=== PATIENT | male | born 1930 | race Caucasian/White ===

== ENCOUNTER 2017-03-06 09:30 | Inpatient (IN) | payer MEDICARE, OTHER ==
--- NOTE | 2017-02-28 21:05 | HP ---
HISTORY AND PHYSICAL: DATE OF ADMISSION/SURGERY: 03/06/17 DATE OF OFFICE VISIT: 02/28/17 SURGEON: Dr. Solange Steele. PROCEDURE: Right total knee arthroplasty. CHIEF COMPLAINT: Right knee pain. HISTORY OF PRESENT ILLNESS: Mr. Cole is an 86-year-old gentleman with complaints of right knee pain secondary to advanced osteoarthritis. He has failed conservative management and has elected to proceed with the right total knee arthroplasty, which is scheduled for 03/06/[address] Steele. PAST MEDICAL HISTORY: Hypothyroidism, hypertension, and melanoma. PAST SURGICAL HISTORY: Appendectomy, melanoma excision, hernia repair, cataract removal, quad tendon repair. CURRENT MEDICATIONS: 1. PreserVision AREDS. 2. Hydrochlorothiazide. 3. L-thyroxine. ALLERGIES: None. FAMILY HISTORY: Cancer and heart disease. SOCIAL HISTORY: He is an 86-year-old gentleman, who lives with his . He is a former smoker. He does not use drugs. He uses occasional alcohol. REVIEW OF SYSTEMS: A complete 14-point review of systems was reviewed with the patient and was positive for hypothyroidism. PHYSICAL EXAMINATION GENERAL: He is well-developed, well-nourished. He is in no acute distress. VITAL SIGNS: He stands 5 feet 9 inches tall and weighs 164 pounds. His blood pressure is 156/75, his heart rate is 68. HEENT: Normocephalic, atraumatic. NECK: Supple. No palpable lymph nodes. Trachea is midline PULMONARY: The lungs are clear to auscultation bilaterally. No wheezes, rhonchi, or rales. CARDIO: Regular rate and rhythm. Strong S1, S2. No murmurs, gallops, or rubs. ABDOMEN: Soft, nontender, nondistended. MUSCULOSKELETAL: Right lower extremity, the skin is intact. There is a moderate joint effusion, tenderness over the medial and lateral joint line. He has full range of motion. He has intact sensation. 2+ dorsalis pedis pulses and his lower extremity muscle group strengths are intact at 5/5. NEUROLOGIC: He is alert and oriented x3. Cranial nerves II through XII are intact. ASSESSMENT AND PLAN: Mr. Cole is an 86-year-old gentleman with complaints of right knee pain secondary to advanced osteoarthritis. He has failed conservative management and has elected to proceed with the right total knee arthroplasty, which is scheduled for 03/06/[address] Steele discussed the risks and the benefits of the surgery at today's visit and all of his questions were answered. Coumadin, Colace, and Percocet were sent to his pharmacy today for postoperative pain control and DVT prophylaxis. He will see Dr. Steele back 10 to 14 days after the surgery. [place] [id number]/[facility] #: [id number] MTDD
[~2017-03-06 09:30] MED LIST: Buffered Lidocaine 1% SYRIN* 3 ML/SYR SYRINGE INTRADERM ONE; Dexamethasone IV* 4 MG/ML 1 ML (4 MG) IV SLOW PU ONE; Famotidine IV* 10 MG/ML 2 ML (20 mg) IV ONE
[2017-03-06] MEDS ORDERED: Famotidine IV* 10 MG/ML 2 ML (20 mg) ONE (09:49)
[2017-03-06] MEDS ORDERED: ceFAZolin 2 GM PREMIX(*) 2 GM/50 ML BAG IVPB ONE (09:49)
[2017-03-06] MEDS ORDERED: Dexamethasone IV* 4 MG/ML 1 ML (4 MG) ONE (09:49)
[2017-03-06] MEDS ORDERED: Morphine PF AMP (0.5MG/ML)* 5 MG/10 ML AMP ONE (10:47)
[2017-03-06] MEDS ORDERED: HYDROmorphone* 1 MG/ML 1 ML SYR ONE ×4 (10:47→15:58)
[2017-03-06] MEDS ORDERED: Midazolam* 1 MG/ML 5 ML VIAL (5 MG) ONE (10:47)
[2017-03-06] MEDS ORDERED: fentaNYL* 50 MCG/ML 2 ML VIAL (100 MCG VIAL) ONE ×3 (10:47→13:25)
[2017-03-06] MEDS ORDERED: PROCHLORPERAZINE INJ 5 MG/ML 2 ML VIAL IV PRN ×2 (15:40→15:41)
[2017-03-06] MEDS ORDERED: DiMENhydriNATE IV* 50 MG/ML VIAL IV PUSH PRN ×2 (15:40→15:41)
[2017-03-06] MEDS ORDERED: fentaNYL* 50 MCG/ML 2 ML VIAL (100 MCG VIAL) IV PRN (15:40)
[2017-03-06] MEDS ORDERED: Ondansetron INJ* 2 MG/ML VIAL IV PRN ×2 (15:40→15:41)
[2017-03-06] MEDS ORDERED: diPHENhydraMINE IV* 50 MG/ML 1 ml VIAL (BENADRYL) IV PRN (15:41)
[2017-03-06] MEDS ORDERED: Nalbuphine* 20 MG/ML 1 ML VIAL IV PRN (15:41)
[2017-03-06] MEDS ORDERED: Naloxone* 0.4 MG/ML 1 ML VIAL IV PRN (15:41)
[2017-03-06] MEDS ORDERED: oxyCODONE/Acetamin 5/325 MG* TAB PO PRN (15:41)
[2017-03-06] MEDS ORDERED: Acetaminophen TAB* 325 MG PO PRN (15:42)
[2017-03-06] MEDS ORDERED: Bisacodyl SUPP* 10 MG SUPP PR PRN (15:42)
[2017-03-06] MEDS ORDERED: Polyethylene Glycol 3350* 17 GM PACKET PO PRN (15:42)
[2017-03-06] MEDS ORDERED: LACTULOSE* 30 ML UDC PO PRN (15:42)
[2017-03-06] MEDS ORDERED: Glycopyrrolate IV* 0.2 MG/ML 1 ML VIAL ONE (15:58)
--- NOTE | 2017-03-06 16:55 | RAD ---
INDICATION: Status post right total knee arthroplasty. COMPARISON: Preoperative x-ray dated January 17, 2017 TECHNIQUE: 2 view radiograph of the right knee. FINDINGS: There is been interval placement of an anatomically aligned right knee prosthesis. There is no evidence of periprostatic fracture. Remaining visualized bones are intact. Incidental note is made of calcified atherosclerosis of the visualized superficial femoral and popliteal arteries. IMPRESSION: Anatomic alignment of right knee prosthesis.
--- NOTE | 2017-03-06 18:17 | CONSULT ---
Subjective Date of Service: 03/06/17 Interval History: No c/o. Pt states he has a heart rate monitor at home which he uses about every day. It reads about 55 consistently, and goes up to the 60's when he exercises. He denies chest pain, SOB, cough, dizzy spells. He last passed out about 30 yrs ago. Review of Systems - Measurements Intake and Output: Intake and Output Last 24 Hours 03/04/17 03/05/17 03/06/17 03/07/17 06:59 06:59 06:59 06:59 Intake Total 2049 Output Total 400 Balance 1650 Weight 168 lb 6.4 oz Intake: IV Fluids 2049 LR 2000 NS 50ML, Cefazolin 2G 50 Output: Urine 200 Estimated Blood Loss 200 Objective Active Medications: Acetaminophen (Tylenol Tab*) 650 mg PO Q4H PRN PRN Reason: PAIN OR TEMPERATURE Bisacodyl (Dulcolax Supp*) 10 mg [place] DAILY PRN PRN Reason: constipation Dexamethasone Sodium Phosphate (Decadron Iv*) 8 mg IV SLOW PU ONCE ONE Stop: 03/06/17 06:01 Last Admin: 03/06/17 10:52 Dose: 8 mg Dimenhydrinate (Dramamine Iv*) 12.5 mg IV PUSH ONCE PRN PRN Reason: NAUSEA/VOMITING Stop: 03/06/17 15:41 Dimenhydrinate (Dramamine Iv*) 12.5 mg IV PUSH Q6H PRN PRN Reason: Nausea/Vomiting Diphenhydramine HCl (Benadryl Iv*) 12.5 mg IV Q6H PRN PRN Reason: PRURITIS Diphenhydramine HCl (Benadryl Iv*) 12.5 mg IV Q6H PRN PRN Reason: PRURITIS Docusate Sodium (Colace Cap*) 100 mg PO BID [facility] Enoxaparin Sodium (Lovenox(*)) 30 mg SUBCUT Q24H [facility] Famotidine (Pepcid Iv*) 20 mg IV ONCE ONE Stop: 03/06/17 06:01 Last Admin: 03/06/17 10:52 Dose: 20 mg Fentanyl Citrate (Fentanyl*) 25 mcg IV Q2M PRN PRN Reason: PAIN - MODERATE Stop: 03/06/17 15:49 Hydrochlorothiazide (Hydrodiuril Tab*) 25 mg PO QAM [facility] Lactated Ringer's (Lactated Ringers 1000 Ml Bag*) 1,000 mls @ 125 mls/hr IV PER RATE [facility] Cefazolin Sodium/Dextrose (Kefzol 1 Gm In Dextrose Duplex (*)) 1 gm in 50 mls @ 200 mls/hr IVPB Q8H [facility] Stop: 03/07/17 08:14 Lactated Ringer's (Lactated Ringers 1000 Ml Bag*) 1,000 mls @ 100 mls/hr IV PER RATE [facility] Lactulose (Lactulose*) 30 ml PO Q6H PRN PRN Reason: constipation Levothyroxine Sodium (Synthroid Tab*) 112 mcg PO SEE INSTRUCTIONS [facility] Lidocaine/Sodium Bicarbonate (Buffered Lidocaine 1% Syrin*) 0.2 ml INTRADERM ONCE ONE Stop: 03/06/17 06:01 Last Admin: 03/06/17 10:51 Dose: Not Given Magnesium Hydroxide (Milk Of Magnesia Liq*) 30 ml PO Q6H PRN PRN Reason: constipation Morphine Sulfate (Morphine Inj (Syringe)*) 2 mg IV Q2H PRN PRN Reason: PAIN Nalbuphine HCl (Nubain*) 5 mg IV Q6H PRN PRN Reason: pruritis Naloxone HCl (Narcan*) 0.08 mg IV Q2M PRN PRN Reason: respiratory depression Ondansetron HCl (Zofran Inj*) 4 mg IV ONCE PRN PRN Reason: NAUSEA/VOMITING Stop: 03/06/17 15:41 Ondansetron HCl (Zofran Inj*) 4 mg IV Q6H PRN PRN Reason: Nausea/Vomiting Ondansetron HCl (Zofran Tab*) 4 mg PO Q6H PRN PRN Reason: NAUSEA Oxycodone HCl (Roxycodone Tab*) 10 mg PO Q4H PRN PRN Reason: SEVERE PAIN Oxycodone/Acetaminophen (Percocet 5/325 Tab*) 2 tab PO Q4H PRN PRN Reason: Moderate Pain Oxycodone/Acetaminophen (Percocet 5/325 Tab*) 1 tab PO Q3H PRN PRN Reason: PAIN - MODERATE Oxycodone/Acetaminophen (Percocet 5/325 Tab*) 2 tab PO Q4H PRN PRN Reason: PAIN Polyethylene Glycol/Electrolytes (Miralax*) 17 gm PO DAILY PRN PRN Reason: Constipation Prochlorperazine Edisylate (Compazine Inj*) 2.5 mg IV ONCE PRN PRN Reason: NAUSEA/VOMITING Stop: 03/06/17 15:41 Prochlorperazine Edisylate (Compazine Inj*) 2.5 mg IV Q6H PRN PRN Reason: NAUSEA/VOMITING Warfarin Sodium (Coumadin Tab(*)) 6 mg PO ONCE@1700 ONE PRN Reason: Protocol Stop: 03/06/17 17:01 Vital Signs 03/06/17 03/06/17 03/06/17 10:18 15:35 15:40 Temperature 97.5 F 97.2 F Pulse Rate 51 50 49 Respiratory 18 14 16 Rate Blood Pressure 146/71 88/54 99/55 (mmHg) O2 Sat by Pulse 98 100 100 Oximetry 03/06/17 03/06/17 03/06/17 15:45 15:50 16:00 Temperature Pulse Rate 43 41 48 Respiratory 14 12 17 Rate Blood Pressure 110/60 101/56 108/57 (mmHg) O2 Sat by Pulse 98 95 94 Oximetry 03/06/17 03/06/17 03/06/17 16:15 16:30 16:45 Temperature Pulse Rate 36 39 38 Respiratory 12 12 14 Rate Blood Pressure 111/61 104/58 106/63 (mmHg) O2 Sat by Pulse 97 99 98 Oximetry 03/06/17 03/06/17 03/06/17 17:00 17:15 17:30 Temperature Pulse Rate 38 40 39 Respiratory 13 14 16 Rate Blood Pressure 106/53 103/57 117/58 (mmHg) O2 Sat by Pulse 99 100 98 Oximetry 03/06/17 03/06/17 17:45 18:00 Temperature 97.3 F Pulse Rate 40 33 Respiratory 14 14 Rate Blood Pressure 112/62 116/53 (mmHg) O2 Sat by Pulse 100 100 Oximetry Assessment/Plan - Billing Plan By Medical Problem: 1. 2. VTE PPX: Diet: Code Status: Admission Status and Rationale:
--- NOTE | 2017-03-06 18:23 | CONSULT ---
Subjective Date of Service: 03/06/17 Interval History: See HPI in first note. Family History: Findings - Parents of "old age." One younger sister A&W. Social History: Findings - Lives with his who is his SDM. Smoked a pipe only. 3 alcoholic drinks per day. Past Medical History: Findings - Melanoma R shoulder area. Repair L quad tear. Appy age 7. Review of Systems - Measurements Intake and Output: Intake and Output Last 24 Hours 03/04/17 03/05/17 03/06/17 03/07/17 06:59 06:59 06:59 06:59 Intake Total 2049 Output Total 400 Balance 1650 Weight 168 lb 6.4 oz Intake: IV Fluids 2049 LR 1999 NS 50ML, Cefazolin 2G 50 Output: Urine 200 Estimated Blood Loss 200 - Review of Systems Dermatology: Positive: Normal HEENT: Positive: Normal Eyes: Positive: Normal Thyroid: Positive: Primary Hypothyroidism Pulmonary: Positive: Normal Cardiology: Positive: Normal Gastroenterology: Positive: Normal Genital - Urinary: Positive: Normal Endocrinology: Positive: Thyroid Problems Hematologic/Lymphatic: Negative: Anemia, Easy Brusing, Hx Leukemia, Hx Lymphoma, Use of Anticoagulant, Use of Antiplatelet Drugs, Other Neurology: Positive: Normal Psychiatry: Positive: Normal Allergic/Immunologic: Negative: Hx Anaphylaxis, Hx Angioedema, Hx Environmental, Hx Seasonal, Athsma, Hx HIV, Immunocompromise, Swollen Glands LymphNodes, Other Objective Active Medications: Acetaminophen (Tylenol Tab*) 650 mg PO Q4H PRN PRN Reason: PAIN OR TEMPERATURE Bisacodyl (Dulcolax Supp*) 10 mg [place] DAILY PRN PRN Reason: constipation Dexamethasone Sodium Phosphate (Decadron Iv*) 8 mg IV SLOW PU ONCE ONE Stop: 03/06/17 06:01 Last Admin: 03/06/17 10:52 Dose: 8 mg Dimenhydrinate (Dramamine Iv*) 12.5 mg IV PUSH ONCE PRN PRN Reason: NAUSEA/VOMITING Stop: 03/06/17 15:41 Dimenhydrinate (Dramamine Iv*) 12.5 mg IV PUSH Q6H PRN PRN Reason: Nausea/Vomiting Diphenhydramine HCl (Benadryl Iv*) 12.5 mg IV Q6H PRN PRN Reason: PRURITIS Diphenhydramine HCl (Benadryl Iv*) 12.5 mg IV Q6H PRN PRN Reason: PRURITIS Docusate Sodium (Colace Cap*) 100 mg PO BID [place] Enoxaparin Sodium (Lovenox(*)) 30 mg SUBCUT Q24H [facility] Famotidine (Pepcid Iv*) 20 mg IV ONCE ONE Stop: 03/06/17 06:01 Last Admin: 03/06/17 10:52 Dose: 20 mg Fentanyl Citrate (Fentanyl*) 25 mcg IV Q2M PRN PRN Reason: PAIN - MODERATE Stop: 03/06/17 15:49 Hydrochlorothiazide (Hydrodiuril Tab*) 25 mg PO QAM [facility] Lactated Ringer's (Lactated Ringers 1000 Ml Bag*) 1,000 mls @ 125 mls/hr IV PER RATE [facility] Cefazolin Sodium/Dextrose (Kefzol 1 Gm In Dextrose Duplex (*)) 1 gm in 50 mls @ 200 mls/hr IVPB Q8H [facility] Stop: 03/07/17 08:14 Lactated Ringer's (Lactated Ringers 1000 Ml Bag*) 1,000 mls @ 100 mls/hr IV PER RATE [facility] Lactulose (Lactulose*) 30 ml PO Q6H PRN PRN Reason: constipation Levothyroxine Sodium (Synthroid Tab*) 112 mcg PO SEE INSTRUCTIONS [facility] Lidocaine/Sodium Bicarbonate (Buffered Lidocaine 1% Syrin*) 0.2 ml INTRADERM ONCE ONE Stop: 03/06/17 06:01 Last Admin: 03/06/17 10:51 Dose: Not Given Magnesium Hydroxide (Milk Of Magnesia Liq*) 30 ml PO Q6H PRN PRN Reason: constipation Morphine Sulfate (Morphine Inj (Syringe)*) 2 mg IV Q2H PRN PRN Reason: PAIN Nalbuphine HCl (Nubain*) 5 mg IV Q6H PRN PRN Reason: pruritis Naloxone HCl (Narcan*) 0.08 mg IV Q2M PRN PRN Reason: respiratory depression Ondansetron HCl (Zofran Inj*) 4 mg IV ONCE PRN PRN Reason: NAUSEA/VOMITING Stop: 03/06/17 15:41 Ondansetron HCl (Zofran Inj*) 4 mg IV Q6H PRN PRN Reason: Nausea/Vomiting Ondansetron HCl (Zofran Tab*) 4 mg PO Q6H PRN PRN Reason: NAUSEA Oxycodone HCl (Roxycodone Tab*) 10 mg PO Q4H PRN PRN Reason: SEVERE PAIN Oxycodone/Acetaminophen (Percocet 5/325 Tab*) 2 tab PO Q4H PRN PRN Reason: Moderate Pain Oxycodone/Acetaminophen (Percocet 5/325 Tab*) 1 tab PO Q3H PRN PRN Reason: PAIN - MODERATE Oxycodone/Acetaminophen (Percocet 5/325 Tab*) 2 tab PO Q4H PRN PRN Reason: PAIN Polyethylene Glycol/Electrolytes (Miralax*) 17 gm PO DAILY PRN PRN Reason: Constipation Prochlorperazine Edisylate (Compazine Inj*) 2.5 mg IV ONCE PRN PRN Reason: NAUSEA/VOMITING Stop: 03/06/17 15:41 Prochlorperazine Edisylate (Compazine Inj*) 2.5 mg IV Q6H PRN PRN Reason: NAUSEA/VOMITING Warfarin Sodium (Coumadin Tab(*)) 6 mg PO ONCE@1700 ONE PRN Reason: Protocol Stop: 03/06/17 17:01 Vital Signs 03/06/17 03/06/17 03/06/17 10:18 15:35 15:40 Temperature 97.5 F 97.2 F Pulse Rate 51 50 49 Respiratory 18 14 16 Rate Blood Pressure 146/71 88/54 99/55 (mmHg) O2 Sat by Pulse 98 100 100 Oximetry 03/06/17 03/06/17 03/06/17 15:45 15:50 16:00 Temperature Pulse Rate 43 41 48 Respiratory 14 12 17 Rate Blood Pressure 110/60 101/56 108/57 (mmHg) O2 Sat by Pulse 98 95 94 Oximetry 03/06/17 03/06/17 03/06/17 16:15 16:30 16:45 Temperature Pulse Rate 36 39 38 Respiratory 12 12 14 Rate Blood Pressure 111/61 104/58 106/63 (mmHg) O2 Sat by Pulse 97 99 98 Oximetry 03/06/17 03/06/17 03/06/17 17:00 17:15 17:30 Temperature Pulse Rate 38 40 39 Respiratory 13 14 16 Rate Blood Pressure 106/53 103/57 117/58 (mmHg) O2 Sat by Pulse 99 100 98 Oximetry 03/06/17 03/06/17 17:45 18:00 Temperature 97.3 F Pulse Rate 40 33 Respiratory 14 14 Rate Blood Pressure 112/62 116/53 (mmHg) O2 Sat by Pulse 100 100 Oximetry Oxygen Devices in Use Now: Nasal Cannula Appearance: Supine on PACU stretcher. Alert, in good spirits. Looks comfortable. Eyes: No Scleral Icterus Ears/Nose/Mouth/Throat: Clear Oropharnyx, Mucous Membranes Moist Neck: NL Appearance and Movements; NL JVP, No Thyroid Enlargement, Masses Respiratory: Symmetrical Chest Expansion and Respiratory Effort, Clear to Auscultation, Clear to Percussion Cardiovascular: NL Sounds; No Murmurs; No JVD, RRR, No Edema, - Abdominal: NL Sounds; No Tenderness; No Distention, No Hepatosplenomegaly, - Extremities: No Edema, No Clubbing, Cyanosis, - Skin: No Rash or Ulcers, No Nodules or Sclerosis, - Neurological: Alert and Oriented x 3, - - Both legs paralyzed and numb. Assessment/Plan - Billing Plan By Medical Problem: 1. Bradycardia. Baseline is 50-55. Likely affected by long-acting epidural morphine and other OR drugs. Monitor in ICU. First degree AV block on ECG. 2. Hypothyroid. Low TSH in past, will also get FT4 and FT3.
[2017-03-06] MEDS ORDERED: Warfarin TAB(*) 6 MG PO ONE (21:30)
[2017-03-06] MEDS: Docusate CAP* 100 MG PO SCH (21:39)
[2017-03-06] MEDS: ceFAZolin 1 GM in Dextrose (*) 1 GM/50 ML BAG IVPB SCH (21:41)
[2017-03-06 21:55] LABS: TSH (Thyroid Stimulating Horm) 0.11 mcIU/mL (0.34-5.60)
[2017-03-06 21:59] LABS: Free T3 2.5 pg/mL (2.5-3.9)
[2017-03-06 22:01] LABS: Free T4 1.32 ng/dL (0.61-1.12)
[2017-03-07] MEDS ORDERED: Morphine INJ* 2 MG/ML 1 ML SYRINGE IV PRN (04:55)
[2017-03-07] MEDS ORDERED: oxyCODONE TAB* 5 MG TAB PO PRN (04:55)
[2017-03-07] MEDS ORDERED: diPHENhydraMINE IV* 50 MG/ML 1 ml VIAL (BENADRYL) IV PRN (04:55)
[2017-03-07] MEDS ORDERED: Ondansetron TAB* 4 MG PO PRN (04:55)
[2017-03-07] MEDS: ceFAZolin 1 GM in Dextrose (*) 1 GM/50 ML BAG IVPB SCH ×2 (05:20→13:39)
[2017-03-07] MEDS: Hydrochlorothiazide TAB* 25 MG PO SCH (05:26)
[2017-03-07 05:55] LABS: Hematocrit 35 % (42-52); Hemoglobin 11.7 g/dl (14.0-18.0)
[2017-03-07] MEDS ORDERED: Levothyroxine TAB* 112 MCG TAB PO SCH ×2 (06:00→11:16)
[2017-03-07 06:12] LABS: BUN/Creatinine Ratio 26.7 (8-20); Calcium 8.2 mg/dL (8.6-10.3); EGFR African American 85.9 (>60); EGFR Non-African American 66.8 (>60); Potassium 3.8 mmol/L (3.5-5.0)
--- NOTE | 2017-03-07 07:50 | PN ---
Progress Note - Progress Note SOAP: Subjective: [Pt. is alert, reports pain is controlled. Denies chest pain, sob, palpitations. Objective: RLE - dressing c/d/i. distally min edema. +df/pf, full sens lt, 2+ dp pulse. Vital Signs: Temp Pulse Resp BP Pulse Ox 97.9 F 49 14 150/74 83 03/07/17 04:41 03/07/17 01:00 03/07/17 06:03 03/07/17 06:03 03/07/17 06:03 Laboratory Results - last 24 hr 03/06/17 03/07/17 03/07/17 21:00 05:45 05:45 Hgb 11.7 L Hct 35 L INR (Anticoag Therapy) 0.98 Sodium Potassium Chloride Carbon Dioxide Anion Gap BUN Creatinine Est GFR ( Amer) Est GFR (Non-Af Amer) BUN/Creatinine Ratio Glucose Calcium TSH 0.11 L Free T4 1.32 H Free T3 2.50 03/07/17 05:45 Hgb Hct INR (Anticoag Therapy) Sodium 133 Potassium 3.8 Chloride 98 L Carbon Dioxide 30 Anion Gap 5 BUN 28 H Creatinine 1.05 Est GFR ( Amer) 85.9 Est GFR (Non-Af Amer) 66.8 BUN/Creatinine Ratio 26.7 H Glucose 119 H Calcium 8.2 L TSH Free T4 Free T3 Assessment: 86 yo M pod 1 s/p RTKA Plan: ICU monitoring for bradycardia, heart block on ekg appreciate icu/hospital medicine care wbat with pt today coumadin 6 mg tonight with lovenox bridge
[2017-03-07] MEDS: Docusate CAP* 100 MG PO SCH ×2 (09:21→22:17)
--- NOTE | 2017-03-07 11:33 | PN ---
Subjective Date of Service: 03/07/17 Interval History: Pain control OK, feels it is time for his next dose. No new c/o. Family History: Findings - Parents of "old age." One younger sister A&W. Social History: Findings - Lives with his who is his SDM. Smoked a pipe only. 3 alcoholic drinks per day. Past Medical History: Findings - Melanoma R shoulder area. Repair L quad tear. Appy age 7. Objective Active Medications: Acetaminophen (Tylenol Tab*) 650 mg PO Q4H PRN PRN Reason: PAIN OR TEMPERATURE Bisacodyl (Dulcolax Supp*) 10 mg [place] DAILY PRN PRN Reason: constipation Diphenhydramine HCl (Benadryl Iv*) 12.5 mg IV Q6H PRN PRN Reason: PRURITIS Docusate Sodium (Colace Cap*) 100 mg PO BID [facility] Last Admin: 03/07/17 09:21 Dose: 100 mg Enoxaparin Sodium (Lovenox(*)) 30 mg SUBCUT Q24H [facility] Hydrochlorothiazide (Hydrodiuril Tab*) 25 mg PO DAILY@0600 [facility] Last Admin: 03/07/17 05:26 Dose: 25 mg Cefazolin Sodium/Dextrose (Kefzol 1 Gm In Dextrose Duplex (*)) 1 gm in 50 mls @ 200 mls/hr IVPB Q8H [facility] Stop: 03/07/17 13:44 Last Admin: 03/07/17 05:20 Dose: 200 mls/hr Lactated Ringer's (Lactated Ringers 1000 Ml Bag*) 1,000 mls @ 100 mls/hr IV PER RATE [facility] Last Admin: 03/06/17 21:08 Dose: 100 mls/hr Lactulose (Lactulose*) 30 ml PO Q6H PRN PRN Reason: constipation Levothyroxine Sodium (Synthroid Tab*) 100 mcg PO EVERY OTHER DAY@0600 [facility] Magnesium Hydroxide (Milk Of Magnesia Liq*) 30 ml PO Q6H PRN PRN Reason: constipation Morphine Sulfate (Morphine Inj (Syringe)*) 2 mg IV Q2H PRN PRN Reason: PAIN Ondansetron HCl (Zofran Tab*) 4 mg PO Q6H PRN PRN Reason: NAUSEA Oxycodone HCl (Roxycodone Tab*) 10 mg PO Q4H PRN PRN Reason: SEVERE PAIN Oxycodone/Acetaminophen (Percocet 5/325 Tab*) 1 tab PO Q3H PRN PRN Reason: PAIN - MODERATE Oxycodone/Acetaminophen (Percocet 5/325 Tab*) 2 tab PO Q4H PRN PRN Reason: PAIN Pharmacy Profile Note (Coumadin Daily Reminder*) 1 note FOLLOW UP 1700 [facility] Polyethylene Glycol/Electrolytes (Miralax*) 17 gm PO DAILY PRN PRN Reason: Constipation Warfarin Sodium (Coumadin Tab(*)) 6 mg PO ONCE@1700 ONE PRN Reason: Protocol Stop: 03/07/17 17:01 Vital Signs 03/06/17 03/06/17 03/06/17 15:35 15:40 15:45 Temperature 97.2 F Pulse Rate 50 49 43 Respiratory 14 16 14 Rate Blood Pressure 88/54 99/55 110/60 (mmHg) O2 Sat by Pulse 100 100 98 Oximetry 03/06/17 03/06/17 03/06/17 15:50 16:00 16:15 Temperature Pulse Rate 41 48 36 Respiratory 12 17 12 Rate Blood Pressure 101/56 108/57 111/61 (mmHg) O2 Sat by Pulse 95 94 97 Oximetry 03/06/17 03/06/17 03/06/17 16:30 16:45 17:00 Temperature Pulse Rate 39 38 38 Respiratory 12 14 13 Rate Blood Pressure 104/58 106/63 106/53 (mmHg) O2 Sat by Pulse 99 98 99 Oximetry 03/06/17 03/06/17 03/06/17 17:15 17:30 17:45 Temperature Pulse Rate 40 39 40 Respiratory 14 16 14 Rate Blood Pressure 103/57 117/58 112/62 (mmHg) O2 Sat by Pulse 100 98 100 Oximetry 03/06/17 03/06/17 03/06/17 18:00 18:15 18:30 Temperature 97.3 F Pulse Rate 33 39 36 Respiratory 14 14 14 Rate Blood Pressure 116/53 119/57 121/60 (mmHg) O2 Sat by Pulse 100 100 99 Oximetry 03/06/17 03/06/17 03/06/17 18:45 19:00 19:30 Temperature 97.3 F Pulse Rate 37 35 40 Respiratory 14 14 16 Rate Blood Pressure 125/59 123/63 144/64 (mmHg) O2 Sat by Pulse 99 100 100 Oximetry 03/06/17 03/06/17 03/06/17 19:45 20:26 20:27 Temperature 96.1 F Pulse Rate 43 42 Respiratory 14 13 6 Rate Blood Pressure 148/59 114/50 108/42 (mmHg) O2 Sat by Pulse 100 98 98 Oximetry 03/06/17 03/06/17 03/06/17 20:30 20:45 21:00 Temperature Pulse Rate 41 Respiratory 11 10 10 Rate Blood Pressure 108/42 116/49 (mmHg) O2 Sat by Pulse 98 99 100 Oximetry 03/06/17 03/06/17 03/06/17 22:00 23:00 23:10 Temperature Pulse Rate Respiratory 15 15 14 Rate Blood Pressure 150/68 168/82 (mmHg) O2 Sat by Pulse 100 100 100 Oximetry 03/06/17 03/07/17 03/07/17 23:19 00:00 00:01 Temperature 97.8 F Pulse Rate Respiratory 15 14 13 Rate Blood Pressure 139/116 146/69 (mmHg) O2 Sat by Pulse 100 99 98 Oximetry 03/07/17 03/07/17 03/07/17 00:25 01:00 02:00 Temperature Pulse Rate 49 Respiratory 12 8 9 Rate Blood Pressure 109/35 126/44 (mmHg) O2 Sat by Pulse 97 98 Oximetry 03/07/17 03/07/17 03/07/17 03:00 04:00 04:41 Temperature 97.9 F Pulse Rate Respiratory 6 8 Rate Blood Pressure 115/63 147/64 (mmHg) O2 Sat by Pulse 99 100 Oximetry 03/07/17 03/07/17 03/07/17 05:00 05:54 05:56 Temperature Pulse Rate Respiratory 10 14 12 Rate Blood Pressure 130/56 129/81 (mmHg) O2 Sat by Pulse 100 Oximetry 03/07/17 03/07/17 03/07/17 06:00 06:03 07:00 Temperature Pulse Rate 44 Respiratory 15 14 11 Rate Blood Pressure 146/126 150/74 156/64 (mmHg) O2 Sat by Pulse 83 100 Oximetry 03/07/17 03/07/17 03/07/17 08:00 09:00 10:00 Temperature 97.2 F Pulse Rate 53 51 51 Respiratory 13 18 16 Rate Blood Pressure 139/65 143/70 167/66 (mmHg) O2 Sat by Pulse 100 98 100 Oximetry 03/07/17 03/07/17 10:55 11:00 Temperature Pulse Rate 51 Respiratory 9 Rate Blood Pressure 142/62 (mmHg) O2 Sat by Pulse 100 100 Oximetry Oxygen Devices in Use Now: Nasal Cannula Appearance: Alert, head up in recliner chair with both legs elevated. Cooling device on R knee. In good spirits. Looks comfortable. Eyes: No Scleral Icterus Neck: NL Appearance and Movements; NL JVP, No Thyroid Enlargement, Masses Respiratory: Symmetrical Chest Expansion and Respiratory Effort, Clear to Auscultation, Clear to Percussion Cardiovascular: NL Sounds; No Murmurs; No JVD, RRR, No Edema, - Extremities: No Edema, No Clubbing, Cyanosis, - Skin: No Rash or Ulcers, No Nodules or Sclerosis, - Neurological: Alert and Oriented x 3, NL Sensation - Can lift each leg off the chair. Result Diagrams: 03/07/17 05:45 03/07/17 05:45 Microbiology and Other Data: Microbiology 03/06/17 21:20 Nasal Screen MRSA (PCR)([facility]) - Final Nasal Mrsa Negative Assess/Plan/Problems-Billing Plan By Medical Problem: 1. Bradycardia. Baseline is 50-55. Likely affected by long-acting epidural morphine and other OR drugs. Monitor in ICU. First degree AV block on ECG. 2. Hypothyroid. Low TSH in past, will also get FT4 and FT3. - Patient Problems (1) Bradycardia Current Visit: Yes Status: Acute Code(s): R00.1 - BRADYCARDIA, UNSPECIFIED SNOMED Code(s): 46471561 Comment: Resolved. Back to his usual rate in the 50's. Bradycardia in PACU likely related to epidural and other meds given in OR. (2) Hypothyroid Current Visit: Yes Status: Acute Code(s): E03.9 - HYPOTHYROIDISM, UNSPECIFIED SNOMED Code(s): 50097389 Comment: TSH low, fT4 high. Reduce levothyroxine to 100 mcg. Pt will call Dr. Rodrigues to discuss outpt tx.
--- NOTE | 2017-03-07 11:34 | PN ---
Progress Note - Progress Note Note: The hospitalist service will be happy to see this patient again at your request.
[2017-03-07] MEDS: oxyCODONE/Acetamin 5/325 MG* TAB PO PRN ×2 (11:37→17:10)
[2017-03-07] MEDS: Enoxaparin(*) 30 MG/0.3 ML SYR SUBCUT SCH (13:39)
[2017-03-07] MEDS ORDERED: Warfarin TAB(*) 6 MG PO ONE (17:00)
--- NOTE | 2017-03-07 23:21 | OP ---
DATE OF OPERATION: 03/06/17 - ROOM #349 DATE OF : [birth year] ATTENDING SURGEON: Solange Steele MD ASSISTANTS: SANTOS Mccormick ANESTHESIOLOGIST: Dr. Swain. ANESTHESIA: Spinal with adductor nerve block. 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 OPERATIVE PROCEDURE: Right total knee arthroplasty. TOURNIQUET TIME: 61 minutes. COMPLICATIONS: None. EBL: 250 cc. SPECIMEN: Bone and cartilage from the right knee joint sent to Pathology. HARDWARE USED: This was cemented [employer] total knee hardware. For the femur, a size 7 right posterior stabilized implant. For the tibia, a size 6 right tibial base plate. For the patella, a 38 mm three-peg all poly patella. For the insert, an 11 mm posterior stabilized polyethylene articular insert. BRIEF HISTORY/INDICATION: Mr. Cole is an 86-year-old gentleman with years of uncontrolled severe right knee pain. The patient failed conservative treatment with anti-inflammatories, pain medication, intra-articular injection, physical therapy, and ambulatory assistive devices. His radiographs confirmed [id number] arthritis. Due to the continued pain and decreased quality of life , the patient elected to proceed with right total knee arthroplasty. Informed consent was obtained from the patient. He understood the risks of the procedure included, but were not limited to bleeding, infection, damage to nearby structures, continued pain, need for further surgery, intraoperative fracture, nerve palsy, hardware failure, loosening, knee stiffness, loss of motion, stroke, heart attack, blood clot, and . He wished to proceed. INTRAOPERATIVE FINDINGS: Intraoperatively, the patient was noted to have 15 degrees flexion deformity to begin. At the end of surgery, he had full extension, 125 degrees of flexion at the knee. He had extensive osteophyte formation and loss of cartilage in a tricompartmental fashion. DESCRIPTION OF PROCEDURE: Mr. Cole was identified in the pre-anesthesia unit. His right lower extremity was marked as the correct operative side. Informed consent was signed and placed in the chart. The patient was taken to the operating room and placed under spinal anesthesia with an adductor nerve block. Ballard catheter was placed. Tourniquet was placed on the right thigh. Right lower extremity was prepped and draped in the usual sterile fashion. It was noted that he had 15 degrees flexion contracture. Preop time-out was made to correctly identify the patient's side and site. Appropriate perioperative antibiotics were given within 1 hour of incision. A 12-cm midline incision was made with #10 blade and carried down to the extensor mechanism. A new #10 blade was used to make a standard medial parapatellar arthrotomy. Patella was subluxed laterally. Electrocautery was used to subperiosteally elevate soft tissue off the superomedial tibia to the midsagittal plane. Any osteophytes along the proximal tibia were carefully removed. The knee was flexed up. Anterior horn of the lateral meniscus and ACL was released. A drill was used to enter the distal femur. Intramedullary distal femoral cutting guide was pinned into proper position. This was placed in an 11 mm due to the flexion contracture. Oscillating saw was used to make appropriate distal small cut. Next, the external rotation guide was pinned on the distal femur. The distal femur was sized to a size 7. Size 7 multi- cutting jig was pinned on to the distal femur. An oscillating saw was used to make the appropriate 4 chamfer cuts. Any excess bone was carefully removed. The PCL was completely released and the tibia was subluxed anteriorly. Extramedullary tibial cutting guide was pinned on the proximal tibia. Oscillating saw was used to make a proximal tibial cut perpendicular to the mechanical axis of the tibia. The bone was carefully removed. The knee was brought out into full extension. A spacer block fit nicely. There was good medial and lateral ligamentous balancing. Good flexion and extension gap balancing. The knee was flexed up. Lamina information engineer was placed both medially and laterally. Any remaining meniscus was carefully removed with electrocautery. A curved osteotome was used to remove posterior osteophytes. A tibial tray and drop kaden were placed to once again confirm satisfactory tibial cut. The tibial cut was appropriate. A size 7 right trial femur was impacted on to the distal femur. This had excellent fit. The box for the posterior stabilized implants was prepared using a reamer and box cut osteotome. Trial size 6 tibial tray and 9 mm insert were placed. The knee was taken through a range of motion and noted to have full extension to 125 degrees of flexion. The patella was everted. 9 mm of patellar bone and cartilage was carefully removed with an oscillating saw. The patella was sized to a size 38. Three peg holes were drilled through the size 38 guide. A 38 trial patella was placed and the knee was taken through a range of motion. There was satisfactory patellofemoral tracking. All trials were carefully removed at this point. The tibia was subluxed anteriorly and sized to a size 6. Proximal tibia was prepared using a size 6 keel punch. All bony cut surfaces were copiously irrigated with sterile saline and dried. Final implants were cemented in place starting with the tibia followed by the femur and last the patella. An 11 mm insert trial was placed while the knee was brought out into full extension. The cement was allowed to fully cure. Tourniquet was turned out at 61 minutes. The knee was copiously irrigated with sterile saline. Once the cement was fully cured, the insert trial was removed. Any excess cement around the implants was removed. Electrocautery was used to obtain meticulous hemostasis. Final insert chosen was an 11 mm posterior stabilized articular insert. This was locked into the position on the tibial tray. Stability of the insert was checked and rechecked and noted to be stable. The knee was once again copiously irrigated with sterile saline. The extensor mechanism was closed using interrupted #1 Vicryls. The rest of the incision was closed in a layered fashion using 0 and 2-0 Vicryls. The skin was closed using running 3-0 nylon sutures. Xeroform, 4x4's, and Webril were used to cover the incision. Saul wrap and cold pack were placed over this. The patient's anesthesia was reversed without difficulty. He was taken to the PACU in stable condition. Intended weight-bearing will be weightbearing as tolerated. Intended DVT prophylaxis will be Coumadin with a Lovenox bridge. [id number]/[facility] #: [id number] [facility]ITALAisha
[2017-03-08] MEDS: oxyCODONE/Acetamin 5/325 MG* TAB PO PRN ×4 (04:28→22:00)
[2017-03-08] MEDS: Hydrochlorothiazide TAB* 25 MG PO SCH (05:52)
[2017-03-08 06:10] LABS: Hematocrit 33 % (42-52); Hemoglobin 10.8 g/dl (14.0-18.0); Mean Corpuscular HGB Conc 33 g/dl (31-36); Mean Corpuscular Hemoglobin 32 pg (27-31); Mean Corpuscular Volume 96 fL (80-94); Mean Platelet Volume 8 um3 (7.4-10.4); Red Blood Count 3.37 10^6/ul (4.0-5.4); Red Cell Distribution Width 14 % (10.5-15); White Blood Count 10.9 10^3/ul (3.5-10.8)
[2017-03-08 06:31] LABS: EGFR African American 95.3 (>60); EGFR Non-African American 74.1 (>60)
[2017-03-08] MEDS: Magnesium Hydroxide LIQ* 30 ML UDC PO PRN (09:13)
[2017-03-08] MEDS: Docusate CAP* 100 MG PO SCH ×2 (09:13→22:00)
--- NOTE | 2017-03-08 11:45 | PN ---
Progress Note - Progress Note SOAP: Subjective: Pt. is alert, reports severe pain overnight. Objective: RLE - dressing changed, inc c/i with min ss drainage. distally nvi. Vital Signs: Temp Pulse Resp BP Pulse Ox 98.0 F 75 18 141/71 96 03/08/17 08:22 03/08/17 10:29 03/08/17 09:14 03/08/17 10:29 03/08/17 08:22 Laboratory Results - last 24 hr 03/08/17 03/08/17 03/08/17 05:57 05:57 05:57 WBC 10.9 H RBC 3.37 L Hgb 10.8 L Hct 33 L MCV 96 H MCH 32 H MCHC 33 RDW 14 Plt Count 146 L MPV 8 Neut % (Auto) 83.6 H Lymph % (Auto) 5.5 L Vilas % (Auto) 10.5 H Eos % (Auto) 0 Baso % (Auto) 0.4 Absolute Neuts (auto) 9.1 H Absolute Lymphs (auto) 0.6 L Absolute Monos (auto) 1.1 H Absolute Eos (auto) 0 Absolute Basos (auto) 0 Absolute Nucleated RBC 0.01 Nucleated RBC % 0.1 INR (Anticoag Therapy) 1.41 H BUN 26 H Creatinine 0.96 Est GFR ( Amer) 95.3 Est GFR (Non-Af Amer) 74.1 Assessment: 86 yo M pod 2 s/p RTKA Plan: wbat rle pt/ot pain control prn HR improved, appreciate medicine consult plan d/c to [facility] tomorrow am
[2017-03-08] MEDS: Enoxaparin(*) 30 MG/0.3 ML SYR SUBCUT SCH (13:06)
[2017-03-08] MEDS ORDERED: Warfarin TAB(*) 6 MG PO ONE (17:00)
[2017-03-09] MEDS: Hydrochlorothiazide TAB* 25 MG PO SCH (06:24)
[2017-03-09] MEDS: oxyCODONE/Acetamin 5/325 MG* TAB PO PRN ×2 (06:33→13:03)
[2017-03-09 07:48] LABS: Hematocrit 33 % (42-52); Hemoglobin 10.8 g/dl (14.0-18.0); Mean Corpuscular HGB Conc 33 g/dl (31-36); Mean Corpuscular Hemoglobin 33 pg (27-31); Mean Corpuscular Volume 97 fL (80-94); Mean Platelet Volume 9 um3 (7.4-10.4); Red Blood Count 3.34 10^6/ul (4.0-5.4); Red Cell Distribution Width 14 % (10.5-15); White Blood Count 8.9 10^3/ul (3.5-10.8)
[2017-03-09] MEDS: Docusate CAP* 100 MG PO SCH (08:47)
[2017-03-09] MEDS: Magnesium Hydroxide LIQ* 30 ML UDC PO PRN (08:47)
[2017-03-09 09:14] VITALS: BP 120/77
--- NOTE | 2017-03-09 13:00 | PN ---
Progress Note - Progress Note SOAP: Subjective: 86 year old male s/p R TKA on 03/[address] Steele. Patient overall feeling well, pain controlled with PO pain medication. + BM, H&H stable. Elevated BP overnight. Objective: General- Well appearing, NAD MSK- Dressing removed, Incision C/D/I. mild edema around knee, + ecchymosis around incision. PT 2+ b/l, ] Vital Signs Temp 99.2 F 03/09/17 08:21 Pulse 57 03/09/17 08:21 Resp 18 03/09/17 08:50 BP 120/77 03/09/17 08:21 Pulse Ox 98 03/09/17 08:50 Intake & Output 03/08/17 03/09/17 03/09/17 18:59 06:59 18:59 Intake Total 710 1000 240 Output Total 750 225 Balance -40 775 240 Intake: Oral 710 1000 240 Output: Urine 750 225 Other: Estimated Void Medium Medium Estimated Stool Amount Medium # Voids 1 Laboratory Results - last 24 hr 03/09/17 03/09/17 07:32 07:32 WBC 8.9 RBC 3.34 L Hgb 10.8 L Hct 33 L MCV 97 H MCH 33 H MCHC 33 RDW 14 Plt Count 145 L MPV 9 Neut % (Auto) 82.6 Lymph % (Auto) 5.6 L Cooper % (Auto) 10.5 H Eos % (Auto) 0.2 Baso % (Auto) 1.1 Absolute Neuts (auto) 7.4 Absolute Lymphs (auto) 0.5 L Absolute Monos (auto) 0.9 H Absolute Eos (auto) 0 Absolute Basos (auto) 0.1 Absolute Nucleated RBC 0 Nucleated RBC % 0 INR (Anticoag Therapy) 1.89 H Assessment: 86 year old male s/p R TKA on 03/[address] Steele Plan: - D/C when cleared by hospitalist re: HTN - COumadin dosing 6mg tonight, lovenox today - PT/ OT as shown Active Medications Generic Name Dose Route Start Last Admin Trade Name Freq PRN Reason Stop Dose Admin Acetaminophen 650 mg 03/06/17 15:42 Tylenol Tab* PO Q4H PRN PAIN OR TEMPERATURE Bisacodyl 10 mg 03/06/17 15:42 Dulcolax Supp* FL DAILY PRN constipation Diphenhydramine HCl 12.5 mg 03/07/17 04:55 Benadryl Iv* IV Q6H PRN PRURITIS Docusate Sodium 100 mg 03/06/17 21:00 03/09/17 08:47 Colace Cap* PO 100 mg BID BERKLEY Administration Enoxaparin Sodium 30 mg 03/07/17 13:00 03/08/17 13:06 Lovenox(*) SUBCUT 30 mg Q24H BERKLEY Administration Hydrochlorothiazide 25 mg 03/07/17 06:00 03/09/17 06:24 Hydrodiuril Tab* PO 25 mg DAILY@0600 BERKLEY Administration Lactulose 30 ml 03/06/17 15:42 03/08/17 15:19 Lactulose* PO 30 ml Q6H PRN Administration constipation Levothyroxine Sodium 100 mcg 03/07/17 11:16 03/09/17 06:24 Synthroid Tab* PO 100 mcg EVERY OTHER DAY@0600 [facility] Administration Magnesium Hydroxide 30 ml 03/06/17 15:42 03/09/17 08:47 Milk Of Magnesia Liq* PO 30 ml Q6H PRN Administration constipation Morphine Sulfate 2 mg 03/07/17 04:55 Morphine Inj (Syringe)* IV Q2H PRN PAIN Ondansetron HCl 4 mg 03/07/17 04:55 03/08/17 08:34 Zofran Tab* PO 4 mg Q6H PRN Administration NAUSEA Oxycodone HCl 10 mg 03/07/17 04:55 03/07/17 22:18 Roxycodone Tab* PO 10 mg Q4H PRN Administration SEVERE PAIN Oxycodone/Acetaminophen 1 tab 03/07/17 04:55 03/08/17 22:00 Percocet 5/325 Tab* PO 1 tab Q3H PRN Administration PAIN - MODERATE Oxycodone/Acetaminophen 2 tab 03/07/17 04:55 03/09/17 06:33 Percocet 5/325 Tab* PO 2 tab Q4H PRN Administration PAIN Pharmacy Profile Note 1 note 03/07/17 17:00 03/08/17 16:44 Coumadin Daily Reminder* FOLLOW UP 1 note 1700 BERKLEY Administration Polyethylene Glycol/Electrolytes 17 gm 03/06/17 15:42 03/08/17 22:04 Miralax* PO 17 gm DAILY PRN Administration Constipation
[2017-03-09] MEDS: Enoxaparin(*) 30 MG/0.3 ML SYR SUBCUT SCH (13:04)
--- NOTE | 2017-03-09 13:07 | PN ---
Progress Note - Progress Note Note: I reviewed the patient's record ov vital signs, and spoke to SANTOS Farias. The patient still has significant knee pain which may affect his BP and this should gradually improve. He is [facility] he will be closely monitored. I would not make any medications changes now. I would suggest he follow-up with Dr. Rodrigues in the next week or so for re-evaluation of his BP control.
== END 2017-03-09 15:10 | DRG 470 ==
LOC: AA 09:46 → ICU 20:30 → SSU 03-07 16:36
PROVIDERS: ADMIT Orthopaedic Surgery Adult Reconstructive Orthopaedic Surgery; ATTEND Orthopaedic Surgery Adult Reconstructive Orthopaedic Surgery
PROC: 0SRC0J9 Replacement of Right Knee Joint with Synthetic Substitute, Cemented, Open Approach (ICD-10-PCS; principal; 2017-03-06 12:15)
DX: M17.11 Unilateral primary osteoarthritis, right knee (principal); R00.1 Bradycardia, unspecified; E05.00 Thyrotoxicosis with diffuse goiter without thyrotoxic crisis or storm; I10 Essential (primary) hypertension; E03.9 Hypothyroidism, unspecified; F17.210 Nicotine dependence, cigarettes, uncomplicated; M25.761 Osteophyte, right knee; I44.0 Atrioventricular block, first degree; Z85.820 Personal history of malignant melanoma of skin; Z98.49 Cataract extraction status, unspecified eye; Z80.9 Family history of malignant neoplasm, unspecified; Z82.49 Family history of ischemic heart disease and other diseases of the circulatory system
CPT/HCPCS: 36415; 62323; 80048; 82565; 84439; 84443; 84481; 84520; 85014; 85018; 85025; 85610; 87641; 93005; 94760; A9270-GY; C1776; J0690; J1100; J1170; J1650; J2250; J3010

== ENCOUNTER 2017-03-21 14:21 | Emergency (ER) | payer MEDICARE, OTHER ==
[2017-03-21 15:07] VITALS: BP 136/54
--- NOTE | 2017-03-21 19:23 | UC ---
giovana Carrington Timothy, scribed for Angely Luciano MD on 03/21/17 at 1619 . Knee Pain HPI - HPI Summary HPI Summary: Major Cole is an 86 yo male presenting to [facility] with 410 pain, increased swelling and redness, and bloody drainage from a right knee replacement 03/06/17 with suture removal 03/19/17, followed immediately with drainage that has not stopped. He has been on levaquin since the surgery. His coumadin Rx was increased to 6 mg on 03/19/17 and then decreased to 4mg today. The bleeding has not decreased without the use of pressure. His pain increases with change in position, and is temporarily alleviated by application of ice. His MHx includes heart murmur, graves disease, PNA, constipation, arthritis of the right knee, hypothyroidism, and tobacco use. - History of Current Complaint Chief Complaint: UCLowerExtremity Stated Complaint: LACERATION ON KNEE Time Seen by Provider: 03/21/17 15:55 Hx Obtained From: Patient Onset/Duration: Sudden Onset, Lasting Days, Still Present Severity Initially: Moderate Severity Currently: Moderate Location Of Injury: right knee replacement Pain Intensity: 4 Pain Scale Used: 0-10 Numeric Character: Sharp Aggravating Factor(s): Movement, Weight Bearing Alleviating Factor(s): Rest, Position Associated Signs And Symptoms: Positive: Swelling, Redness Able to Bear Weight: Yes - Risk Factors Septic Arthritis Risk Factor: Extremes of Age, Prosthesis - Allergies/Home Medications Allergies/Adverse Reactions: Allergies Allergy/AdvReac Type Severity Reaction Status Date / Time No Known Allergies Allergy Verified 02/28/17 11:11 PMH/Surg Hx/FS Hx/Imm Hx Endocrine History Of: Reports: Thyroid Disease, Hypothyroidism Denies: Diabetes Cardiovascular History Of: Denies: Cardiac Disorders, Hypertension, Pacemaker/ICD Respiratory History Of: Denies: COPD, Asthma GI/ History Of: Denies: Ulcer, Renal Disease - Surgical History Surgical History: Yes Surgery Procedure, Year, and Place: hernia repair/right knee replacement. appendectomy. left quad repair. lt ankle surgery. rt shoulder melanoma and lymph nodes removed - Family History Known Family History: Positive: Cardiac Disease Negative: Diabetes - Social History Lives: Assisted Living Alcohol Use: Daily Alcohol Amount: 3 PER DAY Substance Use Type: None Smoking Status (MU): Former Smoker Amount Used/How Often: PIPE X 60 YEARS Have You Smoked in the Last Year: No When Did the Patient Quit Smoking/Using Tobacco: 10years ago - Immunization History Most Recent Influenza Vaccination: 2016 Most Recent Tetanus Shot: 2-3 yrs ago Most Recent Pneumonia Vaccination: HAS HAD Review of Systems Constitutional: Negative Skin: Negative Eyes: Negative ENT: Negative Respiratory: Negative Cardiovascular: Negative Gastrointestinal: Negative Genitourinary: Negative Motor: Negative Neurovascular: Negative Musculoskeletal: Other: - left knee replacement with swelling, redness, and drainage Neurological: Negative Psychological: Negative All Other Systems Reviewed And Are Negative: Yes Physical Exam Triage Information Reviewed: Yes Appearance: No Pain Distress, Well-Nourished, Ill-Appearing Vital Signs: Initial Vital Signs Temp 99.8 F 03/21/17 14:57 Pulse 51 03/21/17 14:57 Resp 16 03/21/17 14:57 BP 136/54 03/21/17 14:57 Pulse Ox 99 03/21/17 14:57 Vital Signs Reviewed: Yes Eyes: Positive: Conjunctiva Clear ENT: Positive: Hearing grossly normal. Negative: Muffled/hoarse voice Neck: Positive: Supple, Nontender Respiratory: Positive: Lungs clear, Normal breath sounds, No respiratory distress Cardiovascular: Positive: RRR, No Murmur, Pulses Normal, Brisk Capillary Refill Musculoskeletal: Positive: Strength Intact, ROM Intact Neurological: Positive: Alert, Muscle Tone Normal Psychological Exam: Normal Psychological: Positive: Age Appropriate Behavior Skin: Positive: Other - Swollen erythematous right knee. Erythema extends down the anterior tibia. There is a spot in the suture line oozing serosanguinous fluid at a rapid rate. There are no limits on ROM. The knee is nontender. Knee Pain Course/Dx - Course Course Of Treatment: Major Szymanski is an 86 yo male presenting to [facility] with increased swelling, drainage, and redness of his right knee replacement since 10/12 when the surgery was performed. Drainage begain 03/19/17 when the sutures were removed. A wound culture will be sent to the lab for testing. After clinical examination he will be transferred to [facility] for further evaluation and treatment. - Differential Dx/Diagnosis Differential Diagnosis/HQI/PQRI: Cellulitis, Infection, Other - septic prosthetic knee Provider Diagnoses: purulent drainage and bleeding from prosthetic knee - Physician Notifications Discussed Patient Care With: 6017 - Rox (nurse - orthopedics) - Dr. Steele is in surgery, but recommends the Pt be transferred to [facility] for further evaluation and treatment. 1620 - Dr. Chambers ([facility]) - will accept Pt for evaluation and treatment at [facility]. Instructed by Provider To: MD Will See In ED Discharge - Discharge Plan Condition: Stable Disposition: TRANS HIGHER LVL OF CARE FAC Referrals: Dago Rodriguez MD [Medical Doctor] - 2 Days Danny Rodrigues MD [Primary Care Provider] - 2 Days The documentation as recorded by the giovana almanza Timothy accurately reflects the service I personally performed and the decisions made by , Angely Luciano MD.
== END 2017-03-21 16:30 | disposition short-term general hospital (02) ==
LOC: UCEAST 14:21
DX: L76.22 Postprocedural hemorrhage of skin and subcutaneous tissue following other procedure (principal); Z96.651 Presence of right artificial knee joint; E03.9 Hypothyroidism, unspecified; Z87.891 Personal history of nicotine dependence
CPT/HCPCS: 87070; 87205; 87640; 87641; 99203; G0463

== ENCOUNTER 2017-03-21 17:15 | Inpatient (IN) | payer MEDICARE, OTHER ==
[2017-03-21 18:19] LABS: Hematocrit 32 % (42-52); Hemoglobin 10.8 g/dl (14.0-18.0); Mean Corpuscular HGB Conc 33 g/dl (31-36); Mean Corpuscular Hemoglobin 32 pg (27-31); Mean Corpuscular Volume 96 fL (80-94); Mean Platelet Volume 8 um3 (7.4-10.4); Red Blood Count 3.37 10^6/ul (4.0-5.4); Red Cell Distribution Width 13 % (10.5-15)
[2017-03-21 18:37] LABS: Albumin 3.3 g/dL (3.2-5.2); BUN/Creatinine Ratio 29.8 (8-20); C Reactive Protein 327.75 mg/L (< 5.00); Calcium 9.8 mg/dL (8.6-10.3); EGFR African American 78.1 (>60); EGFR Non-African American 60.8 (>60); Globulin 3.6 g/dL (2-4); Magnesium 1.8 mg/dL (1.9-2.7); Potassium 4.1 mmol/L (3.5-5.0); Total Bilirubin 0.5 mg/dL (0.2-1.0); Total Protein 6.9 g/dL (6.4-8.9)
[2017-03-21 18:40] LABS: Urine Bacteria Absent (Absent); Urine Bilirubin Negative (Negative); Urine Glucose Negative (Negative); Urine Nitrite Negative (Negative)
[2017-03-21] MEDS ORDERED: oxyCODONE/Acetamin 5/325 MG* TAB PO ONE (18:56)
--- NOTE | 2017-03-21 19:11 | RAD ---
INDICATION: Preoperative study. COMPARISON: Comparison is made with prior chest x-ray study from February 28, 2017. TECHNIQUE: A portable view of the chest was obtained. FINDINGS: The heart is moderately enlarged and unchanged from the prior exam. Note is made of a tortuous aorta. The lungs are hyperinflated and clear. No pleural effusion is seen. IMPRESSION: 1. NO EVIDENCE FOR ACUTE FINDING. 2. CARDIOMEGALY, UNCHANGED.
[2017-03-21] MEDS ORDERED: Bisacodyl SUPP* 10 MG SUPP PR PRN (19:51)
[2017-03-21] MEDS ORDERED: Magnesium Oxide TAB* 400 MG PO ONE (19:55)
[2017-03-21] MEDS: Docusate CAP* 100 MG PO SCH (21:06)
[2017-03-21] MEDS: Heparin VIAL(*) 5000 UNITS/ML VIAL (FIVE THOUSAND) SUBCUT SCH (21:07)
[2017-03-21] MEDS: NS 0.9% 1000 ML* 1,000 ML IV SCH (21:15)
--- NOTE | 2017-03-21 22:15 | CONS ---
ORTHOPEDIC CONSULTATION NOTE: DATE OF CONSULT: 03/21/17 CHIEF COMPLAINT: Right knee pain/draining wound. HISTORY OF PRESENT ILLNESS: Mr. Cole is an 86-year-old gentleman who had right total knee arthroplasty with ks on 03/06/17. Postoperatively, he did well without any complications. He was seen in the office for a postop visit and noted to have a likely hematoma. He was placed on po Keflex prophylactically for possible cellulitis. Two days ago, he noticed some drainage from the superior portion of his wound. Today on 03/21/17, he noted copious amounts of serosanguineous drainage from the superior part of his wound. He denies fevers, but has had chills. The patient went to [facility] care from [facility] and was sent to the emergency room at [facility]. I was notified and came down to the ED to see the patient. He reports 6/10 moderate pain in the knee. Denies fevers. Denies chest pain or shortness of breath. PAST MEDICAL HISTORY: 1. Hypothyroidism. 2. Hypertension. 3. Melanoma. 4. Osteoarthritis. PAST SURGICAL HISTORY: 1. Appendectomy. 2. Melanoma excision. 3. Hernia repair. 4. Cataract removal. 5. Quad tendon repair. CURRENT MEDICATIONS: Per his discharge summary were: 1. Colace 100 mg p.o. b.i.d. 2. Hydrochlorothiazide 25 mg p.o. q.a.m. 3. Percocet 5/325 one to two tablets p.o. q.4 hours p.r.n. for pain. 4. Levothyroxine 112 mcg p.o. daily. 5. Metamucil 2 caps p.o. daily. 6. Coumadin as instructed. ALLERGIES: No known drug allergies. FAMILY HISTORY: Cancer, heart disease. SOCIAL HISTORY: The patient lives with his at [facility]. Former smoker. No current, tobacco, alcohol, or recreational drug use. Normally an independent ambulator. Uses a cane. Has been using a rolling walker after the total knee arthroplasty. REVIEW OF SYSTEMS: Fourteen systems reviewed with the patient. Positive for right knee pain, swelling, right knee wound drainage. Positive for some chills. Positive for fatigue. Negative for fever, chest pain, shortness of breath, nausea, vomiting, headache, or dizziness. Otherwise, the patient reports review of systems is negative or not relevant. PHYSICAL EXAM: Vitals: Temperature 99.8, heart rate 51, blood pressure 136/ 54. General: The patient is a thin male in no apparent distress. Alert and oriented x3. Pleasant mood and appropriate affect. Chest: No unlabored breathing. Right lower extremity: The patient has a large hematoma at the knee with some erythema. He has serosanguineous drainage from the superior portion of the wound. The knee does have some warmth. Distally, he has some 2 + pitting edema. He has dorsiflexion, plantar flexion, 2+ palpable DP pulse. RADIOGRAPHS: Multiple plain films of the right knee are reviewed from the PACS system today on 03/21/17. These show cemented total knee arthroplasty in satisfactory position. ASSESSMENT AND PLAN: Mr. Cole is an 86-year-old gentleman, status post uncomplicated right total knee arthroplasty on 03/06/17. He is now 2 weeks status post right total knee arthroplasty with draining wound and hematoma. It is unclear at this time whether this knee is infected. Under sterile conditions, I did prep the knee and attempt aspiration. Although there is a large amount of swelling and ballotable patella, I was unable to aspirate any fluid after several attempts. This indicates to me that this is a coagulated hematoma. For now, the patient will have some labs drawn including CRP, ESR, and CBC. We will admit him to [facility]. I have contacted the hospitalist group who has graciously agreed to admit the patient. Of course, we need to see what the patient's coags look like before we can plan for an I and D of this knee joint. We will perform hematoma evacuation as well as a washout with polyethylene exchange and multiple cultures can be obtained at that time. If there is indication of infection, we will start IV antibiotics. Leukocytosis will prompt starting antibiotics tonight. Otherwise, we will wait so that I can obtain more sensitive and specific cultures at the time of washout. This plan was discussed with the patient. He understands the treatment plan. He will be admitted to [facility] and monitored. We will check his labs and as soon as he is appropriate to take for an I and D of this right knee, we will take him to surgery. [id number]/[facility] #: [id number] [facility]
--- NOTE | 2017-03-21 22:18 | ED ---
Isaiah Carrington Erika, scribed for Travis Mancera MD on 03/21/17 at 1807 . Lower Extremity - HPI Summary HPI Summary: Patient is an 86-year-old male presenting to the ED with a CC of drainage from the right knee s/p total knee replacement 2 weeks ago. Patient reports he had stitches removed on 03/19/2017, and then noticed serous drainage. Since then, drainage has become serosanguinous. Patient reports some chills, but denies known fever, chest pain, SOB, and abdominal pain. He states he has been taking coumadin for the last 2 days. - History of Current Complaint Chief Complaint: EDExtremityLower Stated Complaint: COMPLICATIONS KNEE SURGERY Time Seen by Provider: 03/21/17 17:56 Hx Obtained From: Patient, Medical Records Severity Currently: Moderate Pain Intensity: 4 Pain Scale Used: 0-10 Numeric Timing: Constant Location: Is Discrete @ - R knee Associated Signs And Symptoms: Positive: Other - drainage - Allergies/Home Medications Allergies/Adverse Reactions: Allergies Allergy/AdvReac Type Severity Reaction Status Date / Time No Known Allergies Allergy Verified 02/28/17 11:11 Home Medications: Home Medications Acetaminophen SUPP* [Tylenol Supp*] 325 mg NV Q6H PRN 03/21/17 [History Confirmed 03/21/17] Acetaminophen TAB* [Tylenol TAB*] 650 mg PO Q6HR PRN 03/21/17 [History Confirmed 03/21/17] Bisacodyl SUPP* [Dulcolax Supp*] 10 mg NV DAILY PRN 03/21/17 [History Confirmed 03/21/17] Levothyroxine TAB* [Synthroid TAB*] 100 mcg PO DAILY 03/21/17 [History Confirmed 03/21/17] Magnesium Hydroxide LIQ* [Milk of Magnesia LIQ*] 30 ml PO QAM PRN 03/21/17 [ History Confirmed 03/21/17] Psyllium W/ Calcium [Metamucil Plus Calcium] 2 cap PO DAILY 03/21/17 [History Confirmed 03/21/17] Warfarin TAB(*) [Coumadin TAB(*)] 6 mg PO DAILY 03/21/17 [History Confirmed ] PMH/Surg Hx/FS Hx/Imm Hx Endocrine/Hematology History: Reports: Hx Thyroid Disease Denies: Hx Diabetes Cardiovascular History: Denies: Hx Hypertension, Hx Pacemaker/ICD Respiratory History: Reports: Other Respiratory Problems/Disorders - PNEUMONIA Denies: Hx Asthma, Hx Chronic Obstructive Pulmonary Disease (COPD) GI History: Reports: Other GI Disorders - CONSTIPATION- CONTROLLED WITH METAMUCIL/ HEMORRHOIDS Denies: Hx Ulcer History: Denies: Hx Dialysis, Hx Renal Disease Musculoskeletal History: Reports: Hx Arthritis - RIGHT KNEE Sensory History: Reports: Hx Cataracts, Hx Contacts or Glasses - GLASSES Denies: Hx Hearing Aid Opthamlomology History: Reports: Hx Cataracts, Hx Contacts or Glasses - GLASSES Neurological History: Reports: Other Neuro Impairments/Disorders - GRAVES DISEASE Psychiatric History: Denies: Hx Panic Disorder - Cancer History Cancer Type, Location and Year: 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 appendectomy. left quad repair. lt ankle surgery. rt shoulder melanoma and lymph nodes removed Hx Anesthesia Reactions: No Infectious Disease History: No Infectious Disease History: Denies: Hx Clostridium Difficile, Hx Hepatitis, Hx Human Immunodeficiency Virus (HIV), Hx of Known/Suspected MRSA, Hx Shingles, Hx Tuberculosis, Hx Known/ Suspected VRE, Hx Known/Suspected VRSA, History Other Infectious Disease, Traveled Outside the [place] in Last 30 Days - Family History Known Family History: Positive: Cardiac Disease, Other - Cancer - Social History Alcohol Use: Occasionally Alcohol Amount: 3 PER DAY Substance Use Type: Reports: None Smoking Status (MU): Former Smoker Amount Used/How Often: PIPE X 60 YEARS Have You Smoked in the Last Year: No Review of Systems Positive: Chills. Negative: Fever Negative: Chest Pain Negative: Shortness Of Breath Negative: Abdominal Pain Skin: Other - R knee drainage All Other Systems Reviewed And Are Negative: Yes Physical Exam Triage Information Reviewed: Yes Vital Signs On Initial Exam: Initial Vitals Temp Pulse Resp BP Pulse Ox 97.9 F 95 16 182/91 98 03/21/17 17:35 03/21/17 17:35 03/21/17 17:35 03/21/17 17:35 03/21/17 17:35 Vital Signs Reviewed: Yes Appearance: Positive: No Pain Distress, Ill-Appearing - Mildly Skin: Positive: Warm, Skin Color Reflects Adequate Perfusion, Dry, Other - Right knee is dressed Head/Face: Positive: Normal Head/Face Inspection Eyes: Positive: EOMI, JR ENT: Positive: Normal ENT inspection Neck: Positive: Supple, Nontender Respiratory/Lung Sounds: Positive: Clear to Auscultation, Breath Sounds Present Cardiovascular: Positive: RRR Abdomen Description: Positive: Nontender, Soft Bowel Sounds: Positive: Present Musculoskeletal: Positive: Other - Right knee is dressed s/p total knee replacement Neurological: Positive: Normal, Sensory/Motor Intact, Alert, Oriented to Person Place, Time Psychiatric: Positive: Affect/Mood Appropriate Diagnostics - Vital Signs Vital Signs Temp Pulse Resp BP Pulse Ox 03/21/17 17:35 97.9 F 95 16 182/91 98 - Laboratory Lab Results: Lab Results 03/21/17 03/21/17 03/21/17 Range/Units 18:08 18:08 18:08 WBC 14.0 H (3.5-10.8) 10^3/ul RBC 3.37 L (4.0-5.4) 10^6/ul Hgb 10.8 L (14.0-18.0) g/dl Hct 32 L (42-52) % MCV 96 H (80-94) fL MCH 32 H (27-31) pg MCHC 33 (31-36) g/dl RDW 13 (10.5-15) % Plt Count 368 (150-450) 10^3/ul MPV 8 (7.4-10.4) um3 Neut % (Auto) 85.4 H (38-83) % Lymph % (Auto) 3.6 L (25-47) % [place] % (Auto) 9.8 H (1-9) % Eos % (Auto) 0.5 (0-6) % Baso % (Auto) 0.7 (0-2) % Absolute Neuts (auto) 12.0 H (1.5-7.7) 10^3/ul Absolute Lymphs (auto) 0.5 L (1.0-4.8) 10^3/ul Absolute Monos (auto) 1.4 H (0-0.8) 10^3/ul Absolute Eos (auto) 0.1 (0-0.6) 10^3/ul Absolute Basos (auto) 0.1 (0-0.2) 10^3/ul Absolute Nucleated RBC 0.01 10^3/ul Nucleated RBC % 0 INR (Anticoag Therapy) 1.62 H (0.89-1.11) APTT 30.2 (26.0-36.3) seconds Sodium 128 L (133-145) mmol/L Potassium 4.1 (3.5-5.0) mmol/L Chloride 88 L (101-111) mmol/L Carbon Dioxide 30 (22-32) mmol/L Anion Gap 10 (2-11) mmol/L BUN 34 H (6-24) mg/dL Creatinine 1.14 (0.67-1.17) mg/dL Est GFR ( Amer) 78.1 (>60) Est GFR (Non-Af Amer) 60.8 (>60) BUN/Creatinine Ratio 29.8 H (8-20) Glucose 104 H (70-100) mg/dL Lactic Acid (0.5-2.0) mmol/L Calcium 9.8 (8.6-10.3) mg/dL Magnesium 1.8 L (1.9-2.7) mg/dL Total Bilirubin 0.50 (0.2-1.0) mg/dL AST 27 (13-39) U/L ALT 20 (7-52) U/L Alkaline Phosphatase 116 H (34-104) U/L C-Reactive Protein 327.75 H (< 5.00) mg/L Total Protein 6.9 (6.4-8.9) g/dL Albumin 3.3 (3.2-5.2) g/dL Globulin 3.6 (2-4) g/dL Albumin/Globulin Ratio 0.9 L (1-3) Urine Color Urine Appearance Urine pH (5-9) Ur Specific [place] (1.010-1.030) Urine Protein (Negative) Urine Ketones (Negative) Urine Blood (Negative) Urine Nitrate (Negative) Urine Bilirubin (Negative) Urine Urobilinogen (Negative) Ur Leukocyte Esterase (Negative) Urine WBC (Auto) (Absent) Urine RBC (Auto) (Absent) Ur Squamous Epith Cells (Absent) Urine Bacteria (Absent) Hyaline Casts (Absent) Urine Glucose (Negative) 03/21/17 03/21/17 Range/Units 18:08 18:19 WBC (3.5-10.8) 10^3/ul RBC (4.0-5.4) 10^6/ul Hgb (14.0-18.0) g/dl Hct (42-52) % MCV (80-94) fL MCH (27-31) pg MCHC (31-36) g/dl RDW (10.5-15) % Plt Count (150-450) 10^3/ul MPV (7.4-10.4) um3 Neut % (Auto) (38-83) % Lymph % (Auto) (25-47) % [place] % (Auto) (1-9) % Eos % (Auto) (0-6) % Baso % (Auto) (0-2) % Absolute Neuts (auto) (1.5-7.7) 10^3/ul Absolute Lymphs (auto) (1.0-4.8) 10^3/ul Absolute Monos (auto) (0-0.8) 10^3/ul Absolute Eos (auto) (0-0.6) 10^3/ul Absolute Basos (auto) (0-0.2) 10^3/ul Absolute Nucleated RBC 10^3/ul Nucleated RBC % INR (Anticoag Therapy) (0.89-1.11) APTT (26.0-36.3) seconds Sodium (133-145) mmol/L Potassium (3.5-5.0) mmol/L Chloride (101-111) mmol/L Carbon Dioxide (22-32) mmol/L Anion Gap (2-11) mmol/L BUN (6-24) mg/dL Creatinine (0.67-1.17) mg/dL Est GFR ( Amer) (>60) Est GFR (Non-Af Amer) (>60) BUN/Creatinine Ratio (8-20) Glucose (70-100) mg/dL Lactic Acid 1.7 (0.5-2.0) mmol/L Calcium (8.6-10.3) mg/dL Magnesium (1.9-2.7) mg/dL Total Bilirubin (0.2-1.0) mg/dL AST (13-39) U/L ALT (7-52) U/L Alkaline Phosphatase (34-104) U/L C-Reactive Protein (< 5.00) mg/L Total Protein (6.4-8.9) g/dL Albumin (3.2-5.2) g/dL Globulin (2-4) g/dL Albumin/Globulin Ratio (1-3) Urine Color Yellow Urine Appearance Clear Urine pH 6.0 (5-9) Ur Specific [place] 1.024 (1.010-1.030) Urine Protein 2+(100 mg/dl) H (Negative) Urine Ketones Negative (Negative) Urine Blood Negative (Negative) Urine Nitrate Negative (Negative) Urine Bilirubin Negative (Negative) Urine Urobilinogen Negative (Negative) Ur Leukocyte Esterase Negative (Negative) Urine WBC (Auto) Trace(0-5/hpf) (Absent) Urine RBC (Auto) 2+(6-10/hpf) H (Absent) Ur Squamous Epith Cells Present H (Absent) Urine Bacteria Absent (Absent) Hyaline Casts Present H (Absent) Urine Glucose Negative (Negative) Result Diagrams: 03/21/17 18:08 03/21/17 18:08 Lab Statement: Any lab studies that have been ordered have been reviewed, and results considered in the medical decision making process. - Radiology CXR Radiology Interpretation Completed By: Radiologist - IMPRESSION: 1. NO EVIDENCE FOR ACUTE FINDING. 2. CARDIOMEGALY, UNCHANGED. - EKG 18:25 Cardiac Rate: NL - at 98 bpm EKG Rhythm: Atrial Fibrillation EKG Interpretation: RBBB Lower Extremity Course/Dx - Course Course Of Treatment: NO CRITICAL CARE TIME Assessment/Plan: ADMIT HOSPITALIST STABLE - Diagnoses Provider Diagnoses: Traumatic hematoma of right knee - Physician Notifications Discussed Care of Patient With: Dr. Steele (orthopedics) at 17:57 - states patient should be admitted to medicine for surgery in the morning. Dr. Steele discussed case with Dr. Robbins who will admit patient. Dr. Robbins (hospitalist ) at 19:37 - confirmed that pt is being admitted. Discharge - Discharge Plan Condition: Stable Disposition: ADMITTED TO [facility] documentation as recorded by the Isaiah almanza Erika accurately reflects the service I personally performed and the decisions made by me, Travis Mancera MD.
--- NOTE | 2017-03-21 23:13 | HP ---
HOSPITAL MEDICINE HISTORY AND PHYSICAL: DATE OF ADMISSION: 03/21/17 PRIMARY CARE PHYSICIAN: Danny Rordigues MD ATTENDING PHYSICIAN: Yoni Robbins MD* (dictation provided by Chante Carson NP) CHIEF COMPLAINT: Bleeding from right knee, status post right total knee arthroplasty. HISTORY OF PRESENT ILLNESS: Mr. Cole is an 86-year-old male with recent right total knee arthroplasty on 03/06/17 who presents today to the hospital with concern for bleeding from incision site. Mr. Cole states he was doing well after the surgery on 03/06/17. He was discharged to home on 03/09/17. He reports that he followed up with Dr. Steele on 03/19/17 at which time his sutures were removed. I do not have a note available from Dr. Steele, but she did start the patient on antibiotics that day. The patient states that this was likely secondary to pain and swelling. By the following day, 03/20/17, the patient had bloody drainage from the knee incision. He was soaking the 2 ABD pads at night. Today, he soaked 3 to 4 pads and therefore was taken to the Urgent Care for evaluation. On evaluation there, they transported him to the emergency room for further care at [facility]. In the emergency room, Mr. Cole was seen by Dr. Steele who suspects there is a joint hematoma and made an effort to aspirate the joint at the bedside. She was unsuccessful in doing so and recommends that the patient be admitted to the hospital for drainage of the knee joint tomorrow in the OR. Mr. Cole's labs are remarkable for a white blood cell count of 14. He has a persistent anemia, which is unchanged since his surgery with a hemoglobin of 10.8. His INR is 1.62 despite being on warfarin. His sodium is 128. His magnesium is 1.8. The CRP is quite elevated at 327.75. His urine shows no evidence of infection. His EKG shows an atrial fibrillation. We do not have a record of the patient having AFib, but patient does endorse this history. PAST MEDICAL HISTORY: 1. Hypertension. 2. Atrial fibrillation. 3. Hypothyroidism. 4. Melanoma. 5. Right total knee arthroplasty, 03/06/17. PAST SURGICAL HISTORY: 1. Removal of melanoma, right shoulder. 2. Repair of left quad tear. 3. Appendectomy at age 7. MEDICATIONS: 1. Tylenol suppositories p.r.n. 2. Hydrochlorothiazide 25 mg p.o. q.a.m. 3. Sodium with calcium 2 caps p.o. daily. 4. Warfarin 6 mg p.o. daily. 5. Tylenol 650 mg p.o. q.6 hours p.r.n. 6. Bisacodyl 10 mg p.o. daily p.r.n. 7. Docusate 100 mg p.o. b.i.d. 8. Levothyroxine 100 mcg p.o. daily. 9. Milk of magnesia 30 mL p.o. q.a.m. p.r.n. 10. Oxycodone with acetaminophen 5/325 mg 2 tabs p.o. q.4 hours p.r.n. ALLERGIES: No known drug allergies. FAMILY HISTORY: Parents of old age. He has a younger sister who is alive and well. SOCIAL HISTORY: The patient states that he smoked a pipe, but no longer does so. He also has continued alcohol use with up to 3 alcoholic drinks per day. He has no history of alcohol withdrawal symptoms in the past. His health care proxy is Barak Cole, his . REVIEW OF SYSTEMS: A 14-point review of systems was completed with Ms. Cole and all those not mentioned above were negative. PHYSICAL EXAMINATION GENERAL: Mr. Cole is lying in the bed. He is in no acute distress. VITAL SIGNS: Temperature 97.9, pulse rate 95, respiratory rate 16, O2 saturation 98% on room air, and blood pressure 182/91. LUNGS: Clear to auscultation bilaterally with no accessory muscle use and good aeration. HEART: S1, S2. No murmurs, rubs, or gallops and irregular. ABDOMEN: Soft and nontender with bowel sounds positive x4. EXTREMITIES: No cyanosis. Positive for edema in the right lower extremity to the level of the knee. NEUROLOGIC: He is alert and oriented x3. He moves all extremities equally except for some limited range of motion of the right knee secondary to swelling and pain. There is no facial asymmetry or focal weakness. Extraocular movements were intact. SKIN: The right leg is also erythematous. In the calf, he has got a clean and dry dressing intact to the right knee. DIAGNOSTIC STUDIES/LAB DATA: WBC 14.0, hemoglobin 10.8, hematocrit 32, and platelet count 368. INR 1.62. Sodium 128, potassium 4.1, chloride 88, serum bicarbonate 30, BUN 34, creatinine 1.14, glucose 104, lactic acid 1.7, and magnesium 1.8. CRP 327.75. Urine shows no evidence of infection. Chest x-ray shows no acute intrathoracic process. The EKG shows an atrial fibrillation with the heart rate in 90s. ASSESSMENT: Mr. Cole is an 86-year-old male with a past medical history of recent right total knee arthroplasty on 03/06/[address] Steele as well as hypertension and atrial fibrillation who presents today to the hospital with concern for bleeding from the right knee incision site. Our plans are as follows for an inpatient admission: 1. Right knee bleeding: Anticipated plans are for him to be taken to the OR tomorrow for drainage of what has been suspected to be a hematoma. The patient' s H and H is stable and we will recheck in the a.m. I do note that he is showing signs of infection, but this could just be reflective of inflammation. I plan to continue the Levaquin, which Dr. Steele started on Sunday. We will recheck his white blood cell count in the a.m. He is afebrile. 2. Atrial fibrillation: Again, the patient does endorse a history of longstanding atrial fibrillation. I have discussed with him that he is at higher risk for stroke with atrial fibrillation. I note that he is on warfarin , but this has only been started for his knee surgery. I recommended that he follow up with Dr. Rodrigues regarding discussion of continuation of anticoagulation for stroke prevention. His heart rate is controlled. 3. Hypothyroidism: Continue levothyroxine. 4. Lower extremity edema and hypertension: The patient states that he takes hydrochlorothiazide for this, but I plan to hold given that I am concerned that he might become hypotensive with any excessive bleeding. 5. DVT prophylaxis: With heparin subcu as his INR is subtherapeutic. 6. Code status: Full code. 7. Disposition: To Surgical Floor. TIME SPENT: Approximately 60 minutes was spent in the admission of this patient , more than half of the time was spent with the patient at the bedside reviewing the events leading up to this hospitalization, performing the physical examination, and reviewing my plan of care. CHANTE CARSON NP CC: Dr. Rodrigues * [id number]/CPS #: [id number] MTDD
[2017-03-22] MEDS: ceFAZolin 1 GM in Dextrose (*) 1 GM/50 ML BAG IVPB SCH ×2 (03:17→09:21)
[2017-03-22] MEDS: Levothyroxine TAB* 100 MCG TAB PO SCH (05:50)
[2017-03-22] MEDS: Heparin VIAL(*) 5000 UNITS/ML VIAL (FIVE THOUSAND) SUBCUT SCH ×3 (05:50→22:31)
[2017-03-22] MEDS ORDERED: Phytonadione Oral Solution* 5 MG/25 ML UDC PO ONE (07:11)
[2017-03-22 08:20] LABS: Hematocrit 29 % (42-52); Hemoglobin 9.8 g/dl (14.0-18.0); Mean Corpuscular HGB Conc 34 g/dl (31-36); Mean Corpuscular Hemoglobin 32 pg (27-31); Mean Corpuscular Volume 95 fL (80-94); Mean Platelet Volume 8 um3 (7.4-10.4); Red Blood Count 3.06 10^6/ul (4.0-5.4); Red Cell Distribution Width 13 % (10.5-15); White Blood Count 9.7 10^3/ul (3.5-10.8)
[2017-03-22 08:45] LABS: BUN/Creatinine Ratio 31.6 (8-20); Calcium 8.8 mg/dL (8.6-10.3); EGFR African American 96.4 (>60); Potassium 3.7 mmol/L (3.5-5.0)
[2017-03-22] MEDS ORDERED: Levofloxacin TAB* 750 MG PO SCH (09:00)
[2017-03-22] MEDS ORDERED: Levofloxacin TAB* 250 MG PO SCH (09:00)
[2017-03-22] MEDS: Docusate CAP* 100 MG PO SCH ×2 (09:07→22:30)
--- NOTE | 2017-03-22 09:37 | PN ---
Progress Note - Progress Note SOAP: Subjective: Pt. is alert, pain is controlled. Objective: RLE - ss drainage from superior incision, significant swelling. distally nvi. Vital Signs: Temp Pulse Resp BP Pulse Ox 98.9 F 111 17 140/84 98 03/22/17 07:27 03/22/17 07:27 03/22/17 07:27 03/22/17 07:27 03/22/17 07:27 Laboratory Results - last 24 hr 03/21/17 03/21/17 03/21/17 18:08 18:08 18:08 WBC 14.0 H RBC 3.37 L Hgb 10.8 L Hct 32 L MCV 96 H MCH 32 H MCHC 33 RDW 13 Plt Count 368 MPV 8 Neut % (Auto) 85.4 H Lymph % (Auto) 3.6 L [place] % (Auto) 9.8 H Eos % (Auto) 0.5 Baso % (Auto) 0.7 Absolute Neuts (auto) 12.0 H Absolute Lymphs (auto) 0.5 L Absolute Monos (auto) 1.4 H Absolute Eos (auto) 0.1 Absolute Basos (auto) 0.1 Absolute Nucleated RBC 0.01 Nucleated RBC % 0 INR (Anticoag Therapy) 1.62 H APTT 30.2 Sodium 128 L Potassium 4.1 Chloride 88 L Carbon Dioxide 30 Anion Gap 10 BUN 34 H Creatinine 1.14 Est GFR ( Amer) 78.1 Est GFR (Non-Af Amer) 60.8 BUN/Creatinine Ratio 29.8 H Glucose 104 H Lactic Acid Calcium 9.8 Magnesium 1.8 L Total Bilirubin 0.50 AST 27 ALT 20 Alkaline Phosphatase 116 H C-Reactive Protein 327.75 H Total Protein 6.9 Albumin 3.3 Globulin 3.6 Albumin/Globulin Ratio 0.9 L Procalcitonin Urine Color Urine Appearance Urine pH Ur Specific [place] Urine Protein Urine Ketones Urine Blood Urine Nitrate Urine Bilirubin Urine Urobilinogen Ur Leukocyte Esterase Urine WBC (Auto) Urine RBC (Auto) Ur Squamous Epith Cells Urine Bacteria Hyaline Casts Urine Glucose 03/21/17 03/21/17 03/22/17 18:08 18:19 08:02 WBC 9.7 RBC 3.06 L Hgb 9.8 L Hct 29 L MCV 95 H MCH 32 H MCHC 34 RDW 13 Plt Count 332 MPV 8 Neut % (Auto) 84.0 H Lymph % (Auto) 5.9 L [place] % (Auto) 8.8 Eos % (Auto) 0.8 Baso % (Auto) 0.5 Absolute Neuts (auto) 8.2 H Absolute Lymphs (auto) 0.6 L Absolute Monos (auto) 0.9 H Absolute Eos (auto) 0.1 Absolute Basos (auto) 0 Absolute Nucleated RBC 0 Nucleated RBC % 0 INR (Anticoag Therapy) APTT Sodium Potassium Chloride Carbon Dioxide Anion Gap BUN Creatinine Est GFR ( Amer) Est GFR (Non-Af Amer) BUN/Creatinine Ratio Glucose Lactic Acid 1.7 Calcium Magnesium Total Bilirubin AST ALT Alkaline Phosphatase C-Reactive Protein Total Protein Albumin Globulin Albumin/Globulin Ratio Procalcitonin Urine Color Yellow Urine Appearance Clear Urine pH 6.0 Ur Specific [place] 1.024 Urine Protein 2+(100 mg/dl) H Urine Ketones Negative Urine Blood Negative Urine Nitrate Negative Urine Bilirubin Negative Urine Urobilinogen Negative Ur Leukocyte Esterase Negative Urine WBC (Auto) Trace(0-5/hpf) Urine RBC (Auto) 2+(6-10/hpf) H Ur Squamous Epith Cells Present H Urine Bacteria Absent Hyaline Casts Present H Urine Glucose Negative 03/22/17 03/22/17 08:02 08:02 WBC RBC Hgb Hct MCV MCH MCHC RDW Plt Count MPV Neut % (Auto) Lymph % (Auto) [place] % (Auto) Eos % (Auto) Baso % (Auto) Absolute Neuts (auto) Absolute Lymphs (auto) Absolute Monos (auto) Absolute Eos (auto) Absolute Basos (auto) Absolute Nucleated RBC Nucleated RBC % INR (Anticoag Therapy) APTT Sodium 129 L Potassium 3.7 Chloride 92 L Carbon Dioxide 29 Anion Gap 8 BUN 30 H Creatinine 0.95 Est GFR ( Amer) 96.4 Est GFR (Non-Af Amer) 75.0 BUN/Creatinine Ratio 31.6 H Glucose 90 Lactic Acid Calcium 8.8 Magnesium Total Bilirubin AST ALT Alkaline Phosphatase C-Reactive Protein Total Protein Albumin Globulin Albumin/Globulin Ratio Procalcitonin 0.8 H Urine Color Urine Appearance Urine pH Ur Specific [place] Urine Protein Urine Ketones Urine Blood Urine Nitrate Urine Bilirubin Urine Urobilinogen Ur Leukocyte Esterase Urine WBC (Auto) Urine RBC (Auto) Ur Squamous Epith Cells Urine Bacteria Hyaline Casts Urine Glucose Assessment: 86 yo M pod 15 s/p RTKA with draining wound, swellling. Likely hematoma +/- infection. Plan: NPO Plan I and D at 16:00 today bedrest nursing to change dressings as needed.
[2017-03-22] MEDS ORDERED: Famotidine IV* 10 MG/ML 2 ML (20 mg) IV ONE (10:42)
[2017-03-22] MEDS ORDERED: Buffered Lidocaine 1% SYRIN* 3 ML/SYR SYRINGE INTRADERM ONE (10:42)
[2017-03-22] MEDS: oxyCODONE/Acetamin 5/325 MG* TAB PO PRN ×2 (11:10→22:43)
--- NOTE | 2017-03-22 12:24 | PN ---
Subjective Date of Service: 03/22/17 Interval History: This is an 86 yo gentleman with a h/o afib, HTN, hypothyroidism and recent R TKA who presented with a large volume of blood drainage from his surgical knee after suture removal. Dr Steele was unable to aspirate the knee in the ER. Plan for washout this afternoon. Patient offers no new complaints today. Denies CP, SOB, abdominal pain, n/v. His knee is sore but it is tolerable. Objective Active Medications: Acetaminophen (Tylenol Tab*) 650 mg PO Q6HR PRN PRN Reason: FEVER/PAIN Bisacodyl (Dulcolax Supp*) 10 mg AR DAILY PRN PRN Reason: CONSTIPATION Docusate Sodium (Colace Cap*) 100 mg PO BID [facility] Last Admin: 03/22/17 09:07 Dose: Not Given Heparin Sodium (Porcine) (Heparin Vial(*)) 5,000 units SUBCUT Q8HR [facility] Last Admin: 03/22/17 05:50 Dose: 5,000 units Sodium Chloride (Ns 0.9% 1000 Ml*) 1,000 mls @ 75 mls/hr IV PER RATE [facility] Last Admin: 03/21/17 21:15 Dose: 75 mls/hr Cefazolin Sodium/Dextrose (Kefzol 1 Gm In Dextrose Duplex (*)) 1 gm in 50 mls @ 200 mls/hr IVPB Q8H [facility] Last Admin: 03/22/17 09:21 Dose: 200 mls/hr Lactated Ringer's (Lactated Ringers 1000 Ml Bag*) 1,000 mls @ 125 mls/hr IV PER RATE [facility] Last Admin: 03/22/17 11:07 Dose: 125 mls/hr Levothyroxine Sodium (Synthroid Tab*) 100 mcg PO 0600 [facility] Last Admin: 03/22/17 05:50 Dose: 100 mcg Magnesium Hydroxide (Milk Of Magnesia Liq*) 30 ml PO QAM PRN PRN Reason: CONSTIPATION Oxycodone/Acetaminophen (Percocet 5/325 Tab*) 2 tab PO Q4H PRN PRN Reason: PAIN Last Admin: 03/22/17 11:10 Dose: 2 tab Oxycodone/Acetaminophen (Percocet 5/325 Tab*) 1 tab PO Q4H PRN PRN Reason: PAIN Vital Signs: Temp Pulse Resp BP Pulse Ox 98.3 F 85 18 143/61 99 03/22/17 11:31 03/22/17 11:31 03/22/17 11:10 03/22/17 11:31 03/22/17 11:31 Oxygen Devices in Use Now: None Appearance: Well appearing elderly gentleman in NAD Neck: NL Appearance and Movements; NL JVP Respiratory: Symmetrical Chest Expansion and Respiratory Effort, Clear to Auscultation Cardiovascular: NL Sounds; No Murmurs; No JVD, RRR Abdominal: NL Sounds; No Tenderness; No Distention Extremities: - - 1-2+ RLE edema, R knee with clean dressing in place Skin: No Rash or Ulcers Neurological: Alert and Oriented x 3 Result Diagrams: 03/22/17 08:02 03/22/17 08:02 Additional Lab and Data: Vital Signs: Temp Pulse Resp BP Pulse Ox 98.3 F 85 18 143/61 99 03/22/17 11:31 03/22/17 11:31 03/22/17 11:10 03/22/17 11:31 03/22/17 11:31 Microbiology and Other Data: Microbiology 03/21/17 23:03 Nasal Screen MRSA (PCR)(CAIT) - Final Nasal Mrsa Negative Assess/Plan/Problems-Billing Assessment: This is an 86 yo gentleman with atrial fibrillation, HTN, hypothyroidism who had a R TKA with Dr Steele 03/06/17. He returned with a large volume of blood drainage with concern for a joint hematoma. - Patient Problems (1) Joint effusion Comment: Presumed hematoma, pending washout with Dr Steele this afternoon Noted leukocytosis with significantly elevated CRP and mildly elevated procalcitonin, concerning for associated infection Recommend cell counts, gram stain and culture from synovial fluid (2) S/P total knee arthroplasty Comment: 03/06/17 (3) Atrial fibrillation Comment: Rate controlled Not previously anticoagulated but currently on coumadin after TKA, recommend lifelong anticoagulation (4) Hypertension Comment: Mildly hypertensive Will resume antihypertensives tomorrow (5) Hypothyroidism (6) Full code status (7) DVT prophylaxis Comment: Anticoagulated with Coumadin, subtherapeutic at admission, holding for surgery Status and Disposition: Pending washout. Inpatient
[2017-03-22] MEDS ORDERED: Famotidine IV* 10 MG/ML 2 ML (20 mg) ONE (13:55)
[2017-03-22] MEDS ORDERED: Midazolam* 1 MG/ML 2 ML VIAL (2 MG) ONE (14:53)
[2017-03-22] MEDS ORDERED: fentaNYL* 50 MCG/ML 5 ML VIAL (250 MCG VIAL) ONE (14:53)
[2017-03-22] MEDS ORDERED: Atracurium* 10 MG/ML 10 ML VIAL ONE (14:53)
[2017-03-22] MEDS ORDERED: Propofol* 10 MG/ML 20 ML BTL IV PUSH ONE (14:54)
[2017-03-22] MEDS ORDERED: Ondansetron INJ* 2 MG/ML VIAL ONE (14:54)
[2017-03-22] MEDS ORDERED: Lidocaine 2% PF * 5 ML VIAL ONE (14:54)
[2017-03-22] MEDS ORDERED: EPHEDrine (Pressors)* 50 MG/ML VIAL ONE (14:54)
[2017-03-22] MEDS ORDERED: ceFAZolin 2 GM PREMIX(*) 2 GM/50 ML BAG IVPB ONE (16:33)
[2017-03-22] MEDS ORDERED: Bupivacaine 0.5% SDV PF* 30 ML VIAL ONE (16:33)
[2017-03-22] MEDS ORDERED: Bacitracin IV* 50,000 UNITS INJ ONE ×2 (16:44→16:53)
[2017-03-22] MEDS ORDERED: fentaNYL* 50 MCG/ML 2 ML VIAL (100 MCG VIAL) ONE ×4 (16:49→19:07)
[2017-03-22] MEDS ORDERED: HYDROmorphone* 1 MG/ML 1 ML SYR IV PRN (17:09)
[2017-03-22] MEDS ORDERED: oxyCODONE/Acetamin 5/325 MG* TAB PO PRN (17:09)
[2017-03-22] MEDS ORDERED: Ondansetron INJ* 2 MG/ML VIAL IV PRN (17:09)
[2017-03-22] MEDS ORDERED: Vancomycin per Pharmacy* NOTE FOLLOW UP SCH (18:00)
[2017-03-22] MEDS ORDERED: cefTRIAXone VIAL(*) 1,000 MG in NS 0.9% 50 ML* 50 ML IVPB SCH (18:00)
[2017-03-22] MEDS ORDERED: HYDROmorphone* 1 MG/ML 1 ML SYR ONE (18:32)
[2017-03-22] MEDS: fentaNYL* 50 MCG/ML 2 ML VIAL (100 MCG VIAL) IV PRN ×3 (18:36→20:06)
[2017-03-22] MEDS ORDERED: hydrALAZINE IV* 20 MG/ML VIAL IV SLOW PU ONE (19:31)
[2017-03-22] MEDS ORDERED: hydrALAZINE IV* 20 MG/ML VIAL ONE (19:36)
[2017-03-22] MEDS ORDERED: Vancomycin(*) 1,000 MG in NS 0.9% 250 ML* 250 ML IVPB SCH (20:00)
[2017-03-22] MEDS ORDERED: Morphine INJ* 4 MG/ML 1 ML SYRINGE IV PRN (20:55)
[2017-03-22] MEDS ORDERED: Morphine INJ* 4 MG/ML 1 ML SYRINGE ONE (20:59)
[2017-03-22] MEDS ORDERED: Metoprolol Tartrate TAB* 25 MG PO SCH (21:00)
[2017-03-22] MEDS: NS 0.9% 1000 ML* 1,000 ML IV SCH (21:31)
[2017-03-22] MEDS: Metoprolol Tartrate TAB* 25 MG PO SCH ×2 (22:30→22:37)
[2017-03-22] MEDS: Piperac/Tazob 3.375 gm in NS* 3.375 GM/100 ML BAG IVPB SCH (23:10)
--- NOTE | 2017-03-23 01:46 | OP ---
AMENDED REPORT TO CORRECT DATE OF OPERATION DATE OF OPERATION: 03/22/17 - ROOM #420 DATE OF : [birth year] SURGEON: Solange Steele MD [employer] SUPERVISOR: SANTOS Mccormick. This assistant clinical nurse manager was necessary throughout the whole procedure for prepping the leg, retraction, manipulation of the leg and wound closure. ANESTHESIOLOGIST: Dr. Monroy. ANESTHESIA: General. PRE-OP DIAGNOSIS: Right knee hematoma with draining wound. POST-OP DIAGNOSIS: Right knee hematoma with wound dehiscence. OPERATIVE PROCEDURE: Right total knee arthroplasty, irrigation and debridement with polyethylene exchange. SPECIMEN: Multiple culture swabs and soft tissue cultures were obtained and sent for cultures and sensitivities to include aerobic and anaerobic fungal mycobacteria. TOURNIQUET TIME: 24 minutes. COMPLICATIONS: None. EBL: 100 cc. BRIEF HISTORY/INDICATIONS: Mr. Cole is an 86-year-old gentleman who had uncomplicated right total knee arthroplasty on 03/06/17. He was discharged to [facility] where he did quite well. He progressed to ambulating without a cane by postop day 7. Approximately at this time, he felt sudden pain and noted swelling and increased pain in the right knee. He went on to continue rehab. I did see him in clinic and felt that he had a hematoma. He was placed on Keflex prophylactically for some slight redness around the incision. The patient presented to the emergency room on 03/21/17 with drainage from his wound. He reported this had increased over the last 48 hours. I felt that the patient had hematoma with open draining wound and needed a formal washout to evaluate further for possible infection. Informed consent was obtained from the patient. He understood the risks of the procedure included, but were not limited to bleeding, infection, damage to nearby structures, continued pain, need for further surgery, intraoperative fracture, nerve palsy, hardware failure , loosening, stroke, heart attack, blood clot and . INTRAOPERATIVE FINDINGS: Intraoperatively, the patient was noted to have a large amount of serosanguineous fluid and hematoma in the knee joint. There was a 3 cm area of wound dehiscence along the quadriceps tendon repair just superior to the patella. There was no obvious purulence or necrotic tissue. DESCRIPTION OF PROCEDURE: Mr. Cole was identified in the preanesthesia unit. His right lower extremity was marked as the correct operative side. Informed consent was signed and placed in the chart. The patient was taken to the operating room and placed under general anesthesia. A Ballard catheter was placed. A tourniquet was placed on the right thigh. The right lower extremity was prepped and draped in the usual sterile fashion. Preop time-out was made to correctly identify the patient's side and site. Preoperative antibiotics were held until cultures were obtained. An 18-gauge needle was used to aspirate some fluid from the knee joint. Next, the tourniquet was inflated. Total tourniquet time for this procedure was 24 minutes. The prior incision was opened. Serosanguineous fluid was encountered, which did have a direct connection through the quadriceps tendon repair just superior to the patella. There was a 3 cm area of quadriceps tendon dehiscence here. Multiple culture swabs were obtained at this time. These were sent for aerobic and anaerobic fungal mycobacterial cultures. A 10 blade was used to open the prior medial peripatellar arthrotomy. Any sutures encountered were removed. Multiple soft tissue cultures were obtained and sent to microbiology as well. At this time, the patient was given 2 g of IV Ancef. The wound was copiously irrigated with 3 L of sterile saline with bacitracin. The patient's polyethylene liner was carefully removed. The knee was washed with another 3 L of sterile saline with bacitracin. There was no obvious purulence or necrotic tissue around the knee joints or capsule. Any fibrotic tissue or loose tissue was carefully removed with a rongeur. Another 3 L of sterile saline with bacitracin were used to irrigate the knee further. A 9 mm posterior stabilized insert was chosen. This was locked into position on the tibial tray. Stability of the insert was checked and rechecked and noted to be stable. At this time, the extensor mechanism was carefully closed over a medium Hemovac drain using intraoperative #1 Vicryls and #5 Ethibonds. The rest of the incision was closed in a layered fashion using 0 and 2-0 Vicryls. Skin was closed using running 3-0 nylon suture. It was noted that the superior one- third of the incision did have some necrotic areas along the skin. It was decided that this would be left in place rather than ellipsing out tissue. Subcuticular tissue did not appear to be necrotic. Sterile Xeroform, 4x4s and Webril were used to cover the incision. Saul wrap and cold pack were placed over this. The patient's anesthesia was reversed without difficulty. He was taken to the PACU in stable condition. Intended weightbearing will be weightbearing as tolerated. Intended DVT prophylaxis will be subcutaneous heparin bridging with Coumadin. Infectious Disease has been consulted. Dr. Farias recommends starting IV ceftriaxone and vancomycin at this time. We will await cultures and decide on future treatment based on culture growth. At this time, we will assume that with an open draining wound, there has been bacterial introduction into this joint. [id number]/[facility] #: [id number] [facility]ITALAisha
[2017-03-23] MEDS: Piperac/Tazob 3.375 gm in NS* 3.375 GM/100 ML BAG IVPB SCH (05:31)
[2017-03-23] MEDS: Levothyroxine TAB* 100 MCG TAB PO SCH (05:32)
[2017-03-23] MEDS: oxyCODONE/Acetamin 5/325 MG* TAB PO PRN ×3 (05:35→21:25)
[2017-03-23] MEDS: Heparin VIAL(*) 5000 UNITS/ML VIAL (FIVE THOUSAND) SUBCUT SCH ×3 (05:42→21:25)
[2017-03-23 05:59] LABS: Hematocrit 30 % (42-52); Hemoglobin 10.2 g/dl (14.0-18.0); Mean Corpuscular HGB Conc 34 g/dl (31-36); Mean Corpuscular Hemoglobin 32 pg (27-31); Mean Corpuscular Volume 95 fL (80-94); Mean Platelet Volume 8 um3 (7.4-10.4); Red Blood Count 3.18 10^6/ul (4.0-5.4); Red Cell Distribution Width 14 % (10.5-15); White Blood Count 9.3 10^3/ul (3.5-10.8)
[2017-03-23 06:14] LABS: BUN/Creatinine Ratio 27.3 (8-20); Calcium 8.5 mg/dL (8.6-10.3); EGFR Non-African American 56.7 (>60); Potassium 4.3 mmol/L (3.5-5.0)
--- NOTE | 2017-03-23 07:44 | PN ---
Progress Note - Progress Note SOAP: Subjective: Pt. reports feeling much better today. Objective: RLE - drain intact with 100 cc ss drainage. distally nvi. Vital Signs: Temp Pulse Resp BP Pulse Ox 98.3 F 57 16 139/63 100 03/23/17 06:10 03/23/17 06:10 03/23/17 06:10 03/23/17 06:10 03/23/17 06:10 Laboratory Results - last 24 hr 03/22/17 03/22/17 03/22/17 08:02 08:02 08:02 WBC 9.7 RBC 3.06 L Hgb 9.8 L Hct 29 L MCV 95 H MCH 32 H MCHC 34 RDW 13 Plt Count 332 MPV 8 Neut % (Auto) 84.0 H Lymph % (Auto) 5.9 L [place] % (Auto) 8.8 Eos % (Auto) 0.8 Baso % (Auto) 0.5 Absolute Neuts (auto) 8.2 H Absolute Lymphs (auto) 0.6 L Absolute Monos (auto) 0.9 H Absolute Eos (auto) 0.1 Absolute Basos (auto) 0 Absolute Nucleated RBC 0 Nucleated RBC % 0 INR (Anticoag Therapy) Sodium 129 L Potassium 3.7 Chloride 92 L Carbon Dioxide 29 Anion Gap 8 BUN 30 H Creatinine 0.95 Est GFR ( Amer) 96.4 Est GFR (Non-Af Amer) 75.0 BUN/Creatinine Ratio 31.6 H Glucose 90 Calcium 8.8 Procalcitonin 0.8 H 03/22/17 03/23/17 03/23/17 13:26 05:48 05:48 WBC 9.3 RBC 3.18 L Hgb 10.2 L Hct 30 L MCV 95 H MCH 32 H MCHC 34 RDW 14 Plt Count 378 MPV 8 Neut % (Auto) 88.8 H Lymph % (Auto) 3.8 L [place] % (Auto) 6.6 Eos % (Auto) 0 Baso % (Auto) 0.8 Absolute Neuts (auto) 8.2 H Absolute Lymphs (auto) 0.4 L Absolute Monos (auto) 0.6 Absolute Eos (auto) 0 Absolute Basos (auto) 0.1 Absolute Nucleated RBC 0 Nucleated RBC % 0 INR (Anticoag Therapy) 1.68 H Sodium 132 L Potassium 4.3 Chloride 93 L Carbon Dioxide 29 Anion Gap 10 BUN 33 H Creatinine 1.21 H Est GFR ( Amer) 73.0 Est GFR (Non-Af Amer) 56.7 BUN/Creatinine Ratio 27.3 H Glucose 158 H Calcium 8.5 L Procalcitonin Assessment: 86 yo M pod 1 s/p I and D RTKA open wound/hematoma/wound dehiscence with +staph growth on cultures Plan: Infection will require PICC line and IV abx at least [address] He consulted Picc line ordered. PT/OT Afib - appreciate Hospitalist management Regular diet
[2017-03-23] MEDS: Metoprolol Tartrate TAB* 25 MG PO SCH ×2 (11:13→20:14)
[2017-03-23] MEDS: Docusate CAP* 100 MG PO SCH ×2 (11:13→20:14)
[2017-03-23] MEDS: ceFAZolin 2 GM PREMIX(*) 2 GM/50 ML BAG IVPB SCH ×2 (13:17→19:43)
[2017-03-23] MEDS: NS 0.9% 1000 ML* 1,000 ML IV SCH (14:15)
--- NOTE | 2017-03-23 14:18 | PN ---
Subjective Date of Service: 03/23/17 Interval History: Mr. Cole denies any acute complaints, including CP, SOB, abd pain, n/v. He reports good pain control to his knee. No acute concerns at this time. Family History: Unchanged from Admission Social History: Unchanged from Admission Past Medical History: Unchanged from Admission Objective Active Medications: Acetaminophen (Tylenol Tab*) 650 mg PO Q6HR PRN PRN Reason: FEVER/PAIN Bisacodyl (Dulcolax Supp*) 10 mg AR DAILY PRN PRN Reason: CONSTIPATION Docusate Sodium (Colace Cap*) 100 mg PO BID [facility] Last Admin: 03/23/17 11:13 Dose: 100 mg Heparin Sodium (Porcine) (Heparin Vial(*)) 5,000 units SUBCUT Q8HR [facility] Last Admin: 03/23/17 13:17 Dose: 5,000 units Heparin Sodium (Porcine) (Heparin Flush Picc/Ml/Cvc(*)) 1 - 3 ml FLUSH 0600, 1800 [facility] PRN Reason: Protocol Sodium Chloride (Ns 0.9% 1000 Ml*) 1,000 mls @ 75 mls/hr IV PER RATE [facility] Last Admin: 03/23/17 14:15 Dose: 75 mls/hr Cefazolin Sodium/Dextrose (Kefzol Premix(*)) 2 gm in 50 mls @ 100 mls/hr IVPB Q8H [facility] Last Admin: 03/23/17 13:17 Dose: 100 mls/hr Levothyroxine Sodium (Synthroid Tab*) 100 mcg PO 0600 [facility] Last Admin: 03/23/17 05:32 Dose: 100 mcg Magnesium Hydroxide (Milk Of Magnesia Liq*) 30 ml PO QAM PRN PRN Reason: CONSTIPATION Metoprolol Tartrate (Lopressor Tab*) 12.5 mg PO Q12HR [facility] Last Admin: 03/23/17 11:13 Dose: 12.5 mg Morphine Sulfate (Morphine Inj (Syringe)*) 4 mg IV Q4H PRN PRN Reason: PAIN Last Admin: 03/22/17 21:02 Dose: 4 mg Oxycodone/Acetaminophen (Percocet 5/325 Tab*) 2 tab PO Q4H PRN PRN Reason: PAIN Last Admin: 03/22/17 22:43 Dose: 2 tab Oxycodone/Acetaminophen (Percocet 5/325 Tab*) 1 tab PO Q4H PRN PRN Reason: PAIN Last Admin: 03/23/17 05:35 Dose: 1 tab Vital Signs 03/22/17 03/22/17 03/22/17 18:17 18:25 18:30 Temperature 97.0 F Pulse Rate 104 103 96 Respiratory 22 16 18 Rate Blood Pressure 180/102 212/104 200/105 (mmHg) O2 Sat by Pulse 100 100 100 Oximetry 03/22/17 03/22/17 03/22/17 18:36 18:37 18:45 Temperature Pulse Rate 104 Respiratory 23 23 20 Rate Blood Pressure 205/100 (mmHg) O2 Sat by Pulse 100 Oximetry 03/22/17 03/22/17 03/22/17 18:47 19:00 19:15 Temperature Pulse Rate 112 110 Respiratory 23 16 18 Rate Blood Pressure 212/117 218/112 (mmHg) O2 Sat by Pulse 100 99 Oximetry 03/22/17 03/22/17 03/22/17 19:30 19:45 19:47 Temperature Pulse Rate 128 107 Respiratory 17 16 23 Rate Blood Pressure 201/109 208/102 (mmHg) O2 Sat by Pulse 100 100 Oximetry 03/22/17 03/22/17 03/22/17 19:59 20:00 20:06 Temperature Pulse Rate 113 Respiratory 16 23 20 Rate Blood Pressure 195/113 (mmHg) O2 Sat by Pulse 100 Oximetry 03/22/17 03/22/17 03/22/17 20:14 20:46 21:02 Temperature 97.7 F 97.4 F Pulse Rate 110 89 Respiratory 20 23 24 Rate Blood Pressure 199/107 174/94 (mmHg) O2 Sat by Pulse 100 95 Oximetry 03/22/17 03/22/17 03/22/17 21:06 22:02 22:04 Temperature Pulse Rate 37 Respiratory 24 20 18 Rate Blood Pressure 166/89 (mmHg) O2 Sat by Pulse 88 Oximetry 03/22/17 03/22/17 03/23/17 22:43 23:37 00:20 Temperature 98.6 F Pulse Rate 102 115 Respiratory 20 16 Rate Blood Pressure 147/75 (mmHg) O2 Sat by Pulse 100 Oximetry 03/23/17 03/23/17 03/23/17 00:43 02:20 05:35 Temperature 98.2 F Pulse Rate 79 Respiratory 19 12 17 Rate Blood Pressure 140/67 (mmHg) O2 Sat by Pulse 96 Oximetry 03/23/17 03/23/17 06:10 07:35 Temperature 98.3 F Pulse Rate 57 Respiratory 16 12 Rate Blood Pressure 139/63 (mmHg) O2 Sat by Pulse 100 Oximetry Oxygen Devices in Use Now: None Appearance: Well appearing, elderly gentleman, in NAD Eyes: PERRLA Ears/Nose/Mouth/Throat: Clear Oropharnyx, Mucous Membranes Moist Neck: NL Appearance and Movements; NL JVP Respiratory: Symmetrical Chest Expansion and Respiratory Effort, Clear to Auscultation Cardiovascular: NL Sounds; No Murmurs; No JVD, RRR Abdominal: NL Sounds; No Tenderness; No Distention Extremities: - - 1-2+ edema to RLE, dressing c/d/i, distally nvi, hemovac with bloody drainage Skin: No Rash or Ulcers Neurological: Alert and Oriented x 3 Lines/Tubes/Other Access: Clean, Dry and Intact PICC Line Nutrition: Taking PO's Result Diagrams: 03/23/17 05:48 03/23/17 05:48 Additional Lab and Data: Vital Signs: Temp Pulse Resp BP Pulse Ox 98.3 F 85 18 143/61 99 03/22/17 11:31 03/22/17 11:31 03/22/17 11:10 03/22/17 11:31 03/22/17 11:31 Microbiology and Other Data: Microbiology 03/21/17 23:03 Nasal Screen MRSA (PCR)([facility]) - Final Nasal Mrsa Negative Assess/Plan/Problems-Billing Assessment: This is an 86 yo gentleman with atrial fibrillation, HTN, hypothyroidism who had a R TKA with Dr Steele 03/06/17. He returned with a large volume of blood drainage with concern for a joint hematoma. - Patient Problems (1) Postoperative wound dehiscence Comment: Management per ortho POD #1 s/p incision and drainage of right total knee arthroplasty with open wound/hematoma/wound dehiscence MSSA growth seen on blood cultures, continue cefazolin Appreciate ID consult Patient will require IV abx for at least 6 weeks PT/OT (2) S/P total knee arthroplasty Current Visit: Yes Status: Acute Code(s): Z96.659 - PRESENCE OF UNSPECIFIED ARTIFICIAL KNEE JOINT SNOMED Code(s): 7620767144646 Comment: 03/06/17 (3) Atrial fibrillation Code(s): I48.91 - UNSPECIFIED ATRIAL FIBRILLATION Comment: Rate controlled, continue metoprolol Not previously anticoagulated but on coumadin after TKA Resume anticoagulation when okay with ortho, pt s/p I&D with concern for hematoma Recommend lifelong anticoagulation for afib when able to resume (4) Hypertension Code(s): I10 - ESSENTIAL (PRIMARY) HYPERTENSION Comment: Mildly hypertensive Continue metoprolol, resume HCTZ tomorrow if renal function okay (5) Hypothyroidism Code(s): E03.9 - HYPOTHYROIDISM, UNSPECIFIED Comment: Continue levothyroxine. (6) DVT prophylaxis Code(s): ARI4748 - Comment: SQ heparin Resume warfarin when okay with ortho (7) Full code status Code(s): Z78.9 - OTHER SPECIFIED HEALTH STATUS Status and Disposition: Inpatient admission. Anticipate extended LOS 2-5 days secondary to need for IV abx.
--- NOTE | 2017-03-23 14:51 | CONS ---
CONSULTATION REPORT: DATE OF CONSULT: 03/23/17 REQUESTING PHYSICIAN: Dr. Steele. CONSULTING SERVICE: Infectious Disease. REASON FOR CONSULT: Right knee wound dehiscence. IMPRESSION: 1. Status post right knee arthroplasty on 03/06/17, now with a few days of dehiscence of the incision with underlying hematoma. No purulent fluid or tissue necrosis found at the time of surgery and there was a dry tap of the joint space preceding it. The wound cultures showed gram-positive cocci in clusters, which are positive for Staphylococcus aureus by PCR, negative for methicillin-resistant Staphylococcus aureus. 2. Atrial fibrillation. 3. History of melanoma. RECOMMENDATION: Stop Zosyn and vancomycin. Start Ancef 2 g IV every 8 hours while we are awaiting further culture data. HISTORY OF PRESENT ILLNESS: This is an 86-year-old man with a recent right knee arthroplasty done on , tolerated it well. He had no complications until about 10 days later after suture was removed, he had drainage of bloody fluid from the component of the incision and then had pain without fevers, chills, and sweats. He was seen by Dr. Steele, who aspirated the joint space. There was no fluid present. She took him to the operating room last night for incision and debridement. There was no purulence or necrotic tissue. There was a hematoma. The surgical specimens were sent to the lab, showed gram- positive cocci in clusters and Gram stain PCR positive for Staph aureus, negative for MRSA. He is on vanco and Zosyn, tolerating well. His white blood cell count is 9000. He is afebrile. He has no other prosthetic material present. PAST MEDICAL HISTORY: 1. Status post right knee arthroplasty, 03/06/17. 2. Hypertension. 3. Atrial fibrillation. 4. Hypothyroidism. 5. Melanoma, which is resected from his right shoulder and had lymph node resection 40 years ago. 6. Status post repair of left quadriceps tendon tear. MEDICATIONS: 1. Tylenol. 2. Bisacodyl. 3. Docusate. 4. Zosyn 3.375 g IV every 8 hours by extended infusion. 5. Oxycodone. ALLERGIES: No known drug allergies. FAMILY HISTORY: No recurrent infections. SOCIAL HISTORY: He lives at [facility]. 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 REVIEW OF SYSTEMS: A full review of systems was negative except as noted above. PHYSICAL EXAM: Vital Signs: Temperature is 37, heart rate 60, respiratory rate 16, blood pressure 140/60, O2 sat is 100% on room air. General: He is awake and non-distress. Neurologic: He is oriented x3. Follows all commands. HEENT: There is no conjunctival hemorrhage. Oropharynx is without lesions. Neck is supple without nuchal rigidity. Lymph Nodes: There is no cervical, supraclavicular, inguinal, axillary, or epitrochlear lymphadenopathy. Heart has regular rate and rhythm without murmurs, rubs, or gallops. Lungs are clear to auscultation bilaterally. Abdomen: Soft, nontender, non-distended. Skin: There is no rash or splinter hemorrhages. Musculoskeletal: There is no spine tenderness to palpation. Right knee incision is intact. There is no erythema or crepitus. There is mild warmth and diffuse edema. LABORATORY DATA: White blood cell count 9, hemoglobin 10, platelets 378. Creatinine is 1.2. Please see impressions and recommendations outlined above, which I have discussed with Dr. Steele. Thanks for asking me to see Mr. Cole in consultation. [id number]/[facility] #: [id number] [facility]
[2017-03-24] MEDS: ceFAZolin 2 GM PREMIX(*) 2 GM/50 ML BAG IVPB SCH ×3 (03:47→19:22)
[2017-03-24] MEDS: hydrALAZINE IV* 20 MG/ML VIAL IV PRN ×2 (04:08→17:47)
[2017-03-24 04:54] LABS: Hematocrit 27 % (42-52); Hemoglobin 8.9 g/dl (14.0-18.0); Mean Corpuscular HGB Conc 34 g/dl (31-36); Mean Corpuscular Hemoglobin 32 pg (27-31); Mean Corpuscular Volume 96 fL (80-94); Mean Platelet Volume 8 um3 (7.4-10.4); Red Blood Count 2.78 10^6/ul (4.0-5.4); Red Cell Distribution Width 14 % (10.5-15); White Blood Count 9.9 10^3/ul (3.5-10.8)
[2017-03-24] MEDS: NS 0.9% 1000 ML* 1,000 ML IV SCH ×2 (04:55→20:41)
[2017-03-24 05:02] LABS: Calcium 8.2 mg/dL (8.6-10.3); EGFR African American 83.2 (>60); EGFR Non-African American 64.7 (>60); Potassium 3.9 mmol/L (3.5-5.0)
[2017-03-24] MEDS: Heparin VIAL(*) 5000 UNITS/ML VIAL (FIVE THOUSAND) SUBCUT SCH ×3 (05:57→21:32)
[2017-03-24] MEDS: Levothyroxine TAB* 100 MCG TAB PO SCH (05:57)
[2017-03-24] MEDS: oxyCODONE/Acetamin 5/325 MG* TAB PO PRN ×2 (08:19→16:34)
[2017-03-24] MEDS: Magnesium Hydroxide LIQ* 30 ML UDC PO PRN (08:19)
[2017-03-24] MEDS: Docusate CAP* 100 MG PO SCH ×2 (08:20→20:44)
[2017-03-24] MEDS: Metoprolol Tartrate TAB* 25 MG PO SCH ×2 (08:20→20:44)
[2017-03-24] MEDS ORDERED: Senna TAB PO PRN (08:46)
[2017-03-24] MEDS ORDERED: Cyclobenzaprine TAB* 10 MG PO PRN (08:46)
--- NOTE | 2017-03-24 08:50 | PN ---
Progress Note - Progress Note SOAP: Subjective: Pt. is alert, reports he has not been walking since surgery. Objective: RLE - drain removed, tip intact, minimal ss drainage, no purulence. distally nvi. swelling improved. dressing changed, inc c/d/i. Vital Signs: Temp Pulse Resp BP Pulse Ox 98.1 F 94 16 149/83 98 03/24/17 07:57 03/24/17 07:57 03/24/17 08:19 03/24/17 07:57 03/24/17 07:57 Laboratory Results - last 24 hr 03/24/17 03/24/17 04:35 04:35 WBC 9.9 RBC 2.78 L Hgb 8.9 L Hct 27 L MCV 96 H MCH 32 H MCHC 34 RDW 14 Plt Count 368 MPV 8 Neut % (Auto) 83.1 H Lymph % (Auto) 7.9 L [place] % (Auto) 8.2 Eos % (Auto) 0.4 Baso % (Auto) 0.4 Absolute Neuts (auto) 8.2 H Absolute Lymphs (auto) 0.8 L Absolute Monos (auto) 0.8 Absolute Eos (auto) 0 Absolute Basos (auto) 0 Absolute Nucleated RBC 0 Nucleated RBC % 0 Sodium 130 L Potassium 3.9 Chloride 96 L Carbon Dioxide 28 Anion Gap 6 BUN 40 H Creatinine 1.08 Est GFR ( Amer) 83.2 Est GFR (Non-Af Amer) 64.7 BUN/Creatinine Ratio 37.0 H Glucose 110 H Calcium 8.2 L Assessment: 86 yo M pod 2 s/p I and D for infected hematoma/wound dehiscence RTKA Plan: PICC line in place. per ID - 2 g ancef IV q 8 hrs awaiting formal Staph growth sensitivities anticipate d/c back to [facility] on Sunday elevate RLE need PT today - oob and ambulating senna ordered- baseline med cyclobenzaprine ordered for mm spasms
--- NOTE | 2017-03-24 08:51 | PN ---
Subjective Date of Service: 03/24/17 Interval History: Patient seen and examined at bedside. Mr. Cole is sitting up in bed. He denies any acute complaints, including CP, SOB, abd pain, n/v. He states, "The knee feels fine" and wants to know he can go home. No other acute concerns. Family History: Unchanged from Admission Social History: Unchanged from Admission Past Medical History: Unchanged from Admission Objective Active Medications: Acetaminophen (Tylenol Tab*) 650 mg PO Q6HR PRN PRN Reason: FEVER/PAIN Bisacodyl (Dulcolax Supp*) 10 mg [place] DAILY PRN PRN Reason: CONSTIPATION Cyclobenzaprine HCl (Flexeril Tab*) 10 mg PO TID PRN PRN Reason: SPASMS - MUSCLE Docusate Sodium (Colace Cap*) 100 mg PO BID [facility] Last Admin: 03/24/17 08:20 Dose: 100 mg Heparin Sodium (Porcine) (Heparin Vial(*)) 5,000 units SUBCUT Q8HR [facility] Last Admin: 03/24/17 05:57 Dose: 5,000 units Heparin Sodium (Porcine) (Heparin Flush Picc/Ml/Cvc(*)) 1 - 3 ml FLUSH 0600, 1800 [facility] PRN Reason: Protocol Last Admin: 03/24/17 04:43 Dose: Not Given Hydralazine HCl (Apresoline Iv*) 10 mg IV Q4H PRN PRN Reason: Systolic >170 Last Admin: 03/24/17 04:08 Dose: 10 mg Sodium Chloride (Ns 0.9% 1000 Ml*) 1,000 mls @ 75 mls/hr IV PER RATE [facility] Last Admin: 03/24/17 04:55 Dose: 75 mls/hr Cefazolin Sodium/Dextrose (Kefzol Premix(*)) 2 gm in 50 mls @ 100 mls/hr IVPB Q8H [facility] Last Admin: 03/24/17 03:47 Dose: 100 mls/hr Levothyroxine Sodium (Synthroid Tab*) 100 mcg PO 0600 [facility] Last Admin: 03/24/17 05:57 Dose: 100 mcg Magnesium Hydroxide (Milk Of Magnesia Liq*) 30 ml PO QAM PRN PRN Reason: CONSTIPATION Last Admin: 03/24/17 08:19 Dose: 30 ml Metoprolol Tartrate (Lopressor Tab*) 12.5 mg PO Q12HR [facility] Last Admin: 03/24/17 08:20 Dose: 12.5 mg Morphine Sulfate (Morphine Inj (Syringe)*) 4 mg IV Q4H PRN PRN Reason: PAIN Last Admin: 03/22/17 21:02 Dose: 4 mg Oxycodone/Acetaminophen (Percocet 5/325 Tab*) 2 tab PO Q4H PRN PRN Reason: PAIN Last Admin: 03/24/17 08:19 Dose: 2 tab Oxycodone/Acetaminophen (Percocet 5/325 Tab*) 1 tab PO Q4H PRN PRN Reason: PAIN Last Admin: 03/23/17 21:25 Dose: 1 tab Senna (Senokot Tab*) 2 tab PO BEDTIME PRN PRN Reason: CONSTIPATION Vital Signs 03/23/17 03/23/17 03/23/17 15:19 16:00 16:43 Temperature 97.8 F Pulse Rate 59 Respiratory 16 12 Rate Blood Pressure 176/68 (mmHg) O2 Sat by Pulse 99 99 Oximetry 03/23/17 03/23/17 03/23/17 18:43 19:27 19:47 Temperature 97.5 F Pulse Rate 61 70 Respiratory 17 10 Rate Blood Pressure 146/63 (mmHg) O2 Sat by Pulse 96 Oximetry 03/23/17 03/23/17 03/23/17 20:00 21:25 23:24 Temperature 97.8 F Pulse Rate 75 Respiratory 16 17 16 Rate Blood Pressure 143/67 (mmHg) O2 Sat by Pulse 97 Oximetry 03/23/17 03/24/17 03/24/17 23:25 03:39 03:49 Temperature 97.2 F Pulse Rate 100 Respiratory 15 14 Rate Blood Pressure 185/103 191/97 (mmHg) O2 Sat by Pulse 96 Oximetry 03/24/17 03/24/17 03/24/17 03:52 07:57 08:19 Temperature 98.1 F Pulse Rate 94 Respiratory 16 16 Rate Blood Pressure 188/94 149/83 (mmHg) O2 Sat by Pulse 98 Oximetry Oxygen Devices in Use Now: None Appearance: Elderly male, sitting up in bed, NAD Eyes: PERRLA Ears/Nose/Mouth/Throat: Mucous Membranes Moist Neck: NL Appearance and Movements; NL JVP Respiratory: Symmetrical Chest Expansion and Respiratory Effort, Clear to Auscultation Cardiovascular: NL Sounds; No Murmurs; No JVD, RRR Abdominal: NL Sounds; No Tenderness; No Distention Extremities: - - +1 RLE edema Skin: No Rash or Ulcers Neurological: Alert and Oriented x 3 Lines/Tubes/Other Access: Clean, Dry and Intact PICC Line Nutrition: Taking PO's Result Diagrams: 03/24/17 04:35 03/24/17 04:35 Additional Lab and Data: Vital Signs: Temp Pulse Resp BP Pulse Ox 98.3 F 85 18 143/61 99 03/22/17 11:31 03/22/17 11:31 03/22/17 11:10 03/22/17 11:31 03/22/17 11:31 Microbiology and Other Data: Microbiology 03/21/17 23:03 Nasal Screen MRSA (PCR)([facility]IT) - Final Nasal Mrsa Negative Assess/Plan/Problems-Billing Assessment: This is an 86 yo gentleman with atrial fibrillation, HTN, hypothyroidism who had a R TKA with Dr Steele 03/06/17. He returned with a large volume of blood drainage with concern for a joint hematoma. - Patient Problems (1) Postoperative wound dehiscence Comment: Management per ortho POD #2 s/p incision and drainage of right total knee arthroplasty with open wound/hematoma/wound dehiscence MSSA growth seen on blood cultures, continue cefazolin Appreciate ID consult Patient will require IV abx for at least 6 weeks PT/OT (2) S/P total knee arthroplasty Current Visit: Yes Status: Acute Code(s): Z96.659 - PRESENCE OF UNSPECIFIED ARTIFICIAL KNEE JOINT SNOMED Code(s): 0241522163426 Comment: 03/06/17 (3) Atrial fibrillation Code(s): I48.91 - UNSPECIFIED ATRIAL FIBRILLATION Comment: Rate controlled, continue metoprolol Not previously anticoagulated but on coumadin after TKA Resume anticoagulation when okay with ortho, pt s/p I&D with concern for hematoma Recommend lifelong anticoagulation for afib when able to resume (4) Hypertension Code(s): I10 - ESSENTIAL (PRIMARY) HYPERTENSION Comment: Mildly hypertensive Continue metoprolol and HCTZ (5) Hypothyroidism Code(s): E03.9 - HYPOTHYROIDISM, UNSPECIFIED Comment: Continue levothyroxine. (6) DVT prophylaxis Code(s): [id number] - Comment: SQ heparin Resume warfarin when okay with ortho (7) Full code status Code(s): Z78.9 - OTHER SPECIFIED HEALTH STATUS Status and Disposition: Inpatient admission. Anticipate extended LOS 2-5 days secondary to need for IV abx.
[2017-03-24] MEDS: Hydrochlorothiazide TAB* 25 MG PO SCH (16:34)
[2017-03-24] MEDS: Senna TAB PO PRN (17:14)
[2017-03-25] MEDS: oxyCODONE/Acetamin 5/325 MG* TAB PO PRN (01:03)
[2017-03-25] MEDS: hydrALAZINE IV* 20 MG/ML VIAL IV PRN (03:33)
[2017-03-25] MEDS: ceFAZolin 2 GM PREMIX(*) 2 GM/50 ML BAG IVPB SCH ×3 (03:38→20:58)
[2017-03-25] MEDS: Heparin VIAL(*) 5000 UNITS/ML VIAL (FIVE THOUSAND) SUBCUT SCH ×3 (05:23→21:03)
[2017-03-25] MEDS: Levothyroxine TAB* 100 MCG TAB PO SCH (05:23)
[2017-03-25] MEDS: Senna TAB PO PRN (05:28)
[2017-03-25] MEDS: Magnesium Hydroxide LIQ* 30 ML UDC PO PRN ×2 (05:28→13:29)
--- NOTE | 2017-03-25 08:41 | PN ---
Subjective Date of Service: 03/25/17 Interval History: Mr. Cole reports some knee pain this morning after AM care. He has had adequate pain control with current medication available to him. He is eager for discharge. He denies c/o chest pain, SOB, abd pain, n/v. He reports improvement in RLE swelling. No other acute concerns. Family History: Unchanged from Admission Social History: Unchanged from Admission Past Medical History: Unchanged from Admission Objective Active Medications: Acetaminophen (Tylenol Tab*) 650 mg PO Q6HR PRN PRN Reason: FEVER/PAIN Bisacodyl (Dulcolax Supp*) 10 mg [place] DAILY PRN PRN Reason: CONSTIPATION Cyclobenzaprine HCl (Flexeril Tab*) 10 mg PO TID PRN PRN Reason: SPASMS - MUSCLE Last Admin: 03/24/17 12:44 Dose: 10 mg Docusate Sodium (Colace Cap*) 100 mg PO BID [facility] Last Admin: 03/24/17 20:44 Dose: 100 mg Heparin Sodium (Porcine) (Heparin Vial(*)) 5,000 units SUBCUT Q8HR [facility] Last Admin: 03/25/17 05:23 Dose: 5,000 units Heparin Sodium (Porcine) (Heparin Flush Picc/Ml/Cvc(*)) 1 - 3 ml FLUSH 0600, 1800 [facility] PRN Reason: Protocol Last Admin: 03/25/17 04:04 Dose: Not Given Hydralazine HCl (Apresoline Iv*) 10 mg IV Q4H PRN PRN Reason: Systolic >170 Last Admin: 03/25/17 03:33 Dose: 10 mg Hydrochlorothiazide (Hydrodiuril Tab*) 25 mg PO QAM [facility] Last Admin: 03/24/17 16:34 Dose: 25 mg Sodium Chloride (Ns 0.9% 1000 Ml*) 1,000 mls @ 75 mls/hr IV PER RATE [facility] Last Admin: 03/24/17 20:41 Dose: 75 mls/hr Cefazolin Sodium/Dextrose (Kefzol Premix(*)) 2 gm in 50 mls @ 100 mls/hr IVPB Q8H [facility] Last Admin: 03/25/17 03:38 Dose: 100 mls/hr Levothyroxine Sodium (Synthroid Tab*) 100 mcg PO 0600 [facility] Last Admin: 03/25/17 05:23 Dose: 100 mcg Magnesium Hydroxide (Milk Of Magnesia Liq*) 30 ml PO QAM PRN PRN Reason: CONSTIPATION Last Admin: 03/25/17 05:28 Dose: 30 ml Metoprolol Tartrate (Lopressor Tab*) 12.5 mg PO Q12HR [facility] Last Admin: 03/24/17 20:44 Dose: 12.5 mg Morphine Sulfate (Morphine Inj (Syringe)*) 4 mg IV Q4H PRN PRN Reason: PAIN Last Admin: 03/22/17 21:02 Dose: 4 mg Oxycodone/Acetaminophen (Percocet 5/325 Tab*) 2 tab PO Q4H PRN PRN Reason: PAIN Last Admin: 03/25/17 01:03 Dose: 2 tab Oxycodone/Acetaminophen (Percocet 5/325 Tab*) 1 tab PO Q4H PRN PRN Reason: PAIN Last Admin: 03/24/17 16:34 Dose: 1 tab Senna (Senokot Tab*) 2 tab PO BID PRN PRN Reason: CONSTIPATION Last Admin: 03/25/17 05:28 Dose: 2 tab Vital Signs 03/24/17 03/24/17 03/24/17 10:19 12:38 12:44 Temperature 98.0 F Pulse Rate 55 Respiratory 16 16 16 Rate Blood Pressure 145/67 (mmHg) O2 Sat by Pulse 99 Oximetry 03/24/17 03/24/17 03/24/17 14:44 16:23 16:34 Temperature 97.8 F Pulse Rate 61 Respiratory 16 16 16 Rate Blood Pressure 182/91 (mmHg) O2 Sat by Pulse 96 Oximetry 03/24/17 03/24/17 03/24/17 17:37 18:34 19:26 Temperature Pulse Rate 74 Respiratory 16 Rate Blood Pressure (mmHg) O2 Sat by Pulse 96 Oximetry 03/24/17 03/24/17 03/24/17 19:34 19:54 19:59 Temperature 98.4 F Pulse Rate 100 Respiratory 16 12 Rate Blood Pressure 153/69 (mmHg) O2 Sat by Pulse 97 Oximetry 03/24/17 03/25/17 03/25/17 23:22 01:03 03:03 Temperature 97.4 F Pulse Rate 53 Respiratory 16 17 15 Rate Blood Pressure 157/86 (mmHg) O2 Sat by Pulse 96 Oximetry 03/25/17 03/25/17 03:24 03:28 Temperature 98.0 F Pulse Rate 52 67 Respiratory 18 Rate Blood Pressure 174/71 (mmHg) O2 Sat by Pulse 96 Oximetry Oxygen Devices in Use Now: None Appearance: Well appearing, older male patient, OOB to chair, NAD Eyes: PERRLA Ears/Nose/Mouth/Throat: Mucous Membranes Moist Neck: NL Appearance and Movements; NL JVP Respiratory: Symmetrical Chest Expansion and Respiratory Effort, Clear to Auscultation Cardiovascular: NL Sounds; No Murmurs; No JVD, RRR Abdominal: NL Sounds; No Tenderness; No Distention Extremities: - - +1 edema RLE, NVI distally, 2+ distal pulses, right knee incision with old bloody drainage, wound well approx with no streaking or purulence Neurological: Alert and Oriented x 3, NL Muscle Strength and Tone Lines/Tubes/Other Access: Clean, Dry and Intact PICC Line Nutrition: Taking PO's Result Diagrams: 03/24/17 04:35 03/24/17 04:35 Additional Lab and Data: Vital Signs: Temp Pulse Resp BP Pulse Ox 98.3 F 85 18 143/61 99 03/22/17 11:31 03/22/17 11:31 03/22/17 11:10 03/22/17 11:31 03/22/17 11:31 Microbiology and Other Data: Microbiology 03/21/17 23:03 Nasal Screen MRSA (PCR)([facility]IT) - Final Nasal Mrsa Negative Assess/Plan/Problems-Billing Assessment: This is an 86 yo gentleman with atrial fibrillation, HTN, hypothyroidism who had a R TKA with Dr Steele 03/06/17. He returned with a large volume of blood drainage with concern for a joint hematoma. - Patient Problems (1) Postoperative wound dehiscence Comment: Management per ortho POD #3 s/p incision and drainage of right total knee arthroplasty with open wound/hematoma/wound dehiscence MSSA growth seen on wound cultures, continue cefazolin Appreciate ID consult Patient will require IV abx for at least 6 weeks PT/OT (2) S/P total knee arthroplasty Current Visit: Yes Status: Acute Code(s): Z96.659 - PRESENCE OF UNSPECIFIED ARTIFICIAL KNEE JOINT SNOMED Code(s): 3567150525354 Comment: 03/06/17 (3) Atrial fibrillation Code(s): I48.91 - UNSPECIFIED ATRIAL FIBRILLATION Comment: Rate controlled, continue metoprolol Not previously anticoagulated but on coumadin after TKA Resume anticoagulation when okay with ortho, pt s/p I&D with concern for hematoma Recommend lifelong anticoagulation for afib when able to resume (4) Hypertension Code(s): I10 - ESSENTIAL (PRIMARY) HYPERTENSION Comment: Mildly hypertensive Continue metoprolol and HCTZ PRN hydralazine (5) Hypothyroidism Code(s): E03.9 - HYPOTHYROIDISM, UNSPECIFIED Comment: Continue levothyroxine. (6) DVT prophylaxis Code(s): [id number] - Comment: SQ heparin Resume warfarin when okay with ortho (7) Full code status Code(s): Z78.9 - OTHER SPECIFIED HEALTH STATUS Status and Disposition: Inpatient admission. Anticipate extended LOS 2-5 days secondary to need for IV abx.
[2017-03-25] MEDS: Metoprolol Tartrate TAB* 25 MG PO SCH ×2 (09:29→20:58)
[2017-03-25] MEDS: Docusate CAP* 100 MG PO SCH ×2 (09:29→20:59)
[2017-03-25] MEDS: Hydrochlorothiazide TAB* 25 MG PO SCH (09:29)
[2017-03-25] MEDS: Acetaminophen TAB* 325 MG PO PRN ×2 (09:34→21:03)
[2017-03-25] MEDS ORDERED: Sodium Phosphate ADULT ENEMA* 118 ml bottle PR PRN (10:22)
--- NOTE | 2017-03-25 10:42 | PN ---
Progress Note - Progress Note SOAP: Subjective: Pt is doing well, Pain is controlled. Denies CP, SOB, N/T, F/C or calf pain. Has not had a BM. Objective: PE- 86 y/o M NAD, A&O x 3 RLE- dressing changed, minimal discharge, inc c/d/i, + DF/PF ankle, calf soft nontender, + 2 DP pulse, sensation intact Vital Signs Temp Pulse Resp BP Pulse Ox 98.2 F 58 18 157/96 96 03/25/17 08:28 03/25/17 08:28 03/25/17 08:28 03/25/17 08:28 03/25/17 08:28 Wound culture sensitivities- sensitive to all abx including ancef Assessment: 86 yo M pod 3 s/p I and D for infected hematoma/wound dehiscence RTKA Plan: PICC line in place. per ID - 2 g ancef IV q 8 hrs sensitive to ancef per sensitivity anticipate d/c back to [facility] on Sunday elevate RLE WBAT RLE- cont ambulation with PT fleet enema ordered for constipation
[2017-03-25] MEDS: NS 0.9% 1000 ML* 1,000 ML IV SCH (13:54)
[2017-03-26] MEDS: NS 0.9% 1000 ML* 1,000 ML IV SCH (03:37)
[2017-03-26] MEDS: ceFAZolin 2 GM PREMIX(*) 2 GM/50 ML BAG IVPB SCH ×2 (03:37→12:12)
[2017-03-26] MEDS: hydrALAZINE IV* 20 MG/ML VIAL IV PRN (03:42)
[2017-03-26] MEDS: Heparin VIAL(*) 5000 UNITS/ML VIAL (FIVE THOUSAND) SUBCUT SCH ×2 (05:25→14:07)
[2017-03-26] MEDS: Levothyroxine TAB* 100 MCG TAB PO SCH (05:25)
[2017-03-26] MEDS: Senna TAB PO PRN (05:25)
[2017-03-26 06:29] LABS: Add Diff/Slide Review? Slide Review Added; Comments Flag Yes; Hematocrit 31 % (42-52); Hemoglobin 10.2 g/dl (14.0-18.0); Mean Corpuscular HGB Conc 33 g/dl (31-36); Mean Corpuscular Hemoglobin 32 pg (27-31); Mean Corpuscular Volume 95 fL (80-94); Mean Platelet Volume 8 um3 (7.4-10.4); Red Blood Count 3.21 10^6/ul (4.0-5.4); Red Cell Distribution Width 14 % (10.5-15); White Blood Count 8.6 10^3/ul (3.5-10.8)
[2017-03-26 07:24] LABS: BUN/Creatinine Ratio 28.9 (8-20); C Reactive Protein 97.08 mg/L (< 5.00); Calcium 8.4 mg/dL (8.6-10.3); EGFR African American 102.7 (>60); EGFR Non-African American 79.8 (>60); Potassium 3.6 mmol/L (3.5-5.0)
[2017-03-26] MEDS: Docusate CAP* 100 MG PO SCH (08:19)
[2017-03-26] MEDS: Metoprolol Tartrate TAB* 25 MG PO SCH (08:37)
[2017-03-26] MEDS: Acetaminophen TAB* 325 MG PO PRN (08:37)
[2017-03-26] MEDS ORDERED: Hydrochlorothiazide TAB* 25 MG PO SCH (09:00)
--- NOTE | 2017-03-26 10:14 | PN ---
Progress Note - Progress Note SOAP: Subjective: DOS: 03/26/17 CC: right knee pain HPI: 86 year old man with recent right knee arthroplasty complicated by hematoma and dehiscence, had I&D. Pain improved, out of chair some. No fever, rash, or diarrhea. Objective: [] Vital Signs Temp 36.6 C 03/26/17 07:49 Pulse 101 03/26/17 07:49 Resp 18 03/26/17 07:49 BP 148/81 03/26/17 07:49 Pulse Ox 98 03/26/17 07:49 Intake & Output 03/25/17 03/26/17 03/26/17 18:59 06:59 18:59 Intake Total 1105 1269 350 Output Total 620 400 500 Balance 485 869 -150 Intake: IV Fluids 565 816 350 ABX - CEFAZOLIN 46 All fluids 565 NS (0.9%) 816 304 IVPB 53 ABX - CEFAZOLIN 53 Oral 540 400 Output: Urine 620 400 500 Other: Estimated Void Medium # Bowel Movements 1 Estimated Stool Amount Small # Voids 1 Gen:Awake, no distress HEENT:PERRL, MMM Neck:Supple Heart:RRR no murmur Lungs:CTA BL Abd:+BS NTND soft Skin: no rash MSK: R knee incision intact no erythema, mild edema Laboratory Results - last 24 hr 03/26/17 03/26/17 05:30 05:30 WBC 8.6 RBC 3.21 L Hgb 10.2 L Hct 31 L MCV 95 H MCH 32 H MCHC 33 RDW 14 Plt Count 439 MPV 8 Neut % (Auto) 80.1 Lymph % (Auto) 11.7 L [place] % (Auto) 6.8 Eos % (Auto) 0.8 Baso % (Auto) 0.6 Absolute Neuts (auto) 6.9 Absolute Lymphs (auto) 1.0 Absolute Monos (auto) 0.6 Absolute Eos (auto) 0.1 Absolute Basos (auto) 0.1 Absolute Nucleated RBC 0.01 Nucleated RBC % 0.1 Sodium 134 Potassium 3.6 Chloride 98 L Carbon Dioxide 26 Anion Gap 10 BUN 26 H Creatinine 0.90 Est GFR ( Amer) 102.7 Est GFR (Non-Af Amer) 79.8 BUN/Creatinine Ratio 28.9 H Glucose 93 Calcium 8.4 L C-Reactive Protein 97.08 H Assessment: 1. Right knee arthroplasty hematoma, dehiscence 2. MSSA infected hematoma 3. elevated CRP, improving Plan: 1. continue ancef by continuos infusion, follow up with me 1-2 weeks. Weekly labs ordered. 35 minutes floor time >50% face to face with patient and discussing next steps in abx treatment, monitoring, and follow up, side effects of fever, rash, diarrhea discussed, they will call if any.
--- NOTE | 2017-03-26 11:21 | PN ---
Subjective Date of Service: 03/26/17 Interval History: Mr. Cole reports feeling well today and was able to walk in the hallway. He is only using Tylenol for pain and states that he was able to have a large BM yesterday. No acute concerns. Denies fever/chills, CP, SOB, abd pain, n/v. Family History: Unchanged from Admission Social History: Unchanged from Admission Past Medical History: Unchanged from Admission Objective Active Medications: Acetaminophen (Tylenol Tab*) 650 mg PO Q6HR PRN PRN Reason: FEVER/PAIN Last Admin: 03/26/17 08:37 Dose: 650 mg Bisacodyl (Dulcolax Supp*) 10 mg [place] DAILY PRN PRN Reason: CONSTIPATION Last Admin: 03/25/17 09:35 Dose: 10 mg Cyclobenzaprine HCl (Flexeril Tab*) 10 mg PO TID PRN PRN Reason: SPASMS - MUSCLE Last Admin: 03/24/17 12:44 Dose: 10 mg Docusate Sodium (Colace Cap*) 100 mg PO BID [facility] Last Admin: 03/26/17 08:19 Dose: Not Given Heparin Sodium (Porcine) (Heparin Vial(*)) 5,000 units SUBCUT Q8HR [facility] Last Admin: 03/26/17 05:25 Dose: 5,000 units Heparin Sodium (Porcine) (Heparin Flush Picc/Ml/Cvc(*)) 1 - 3 ml FLUSH 0600, 1800 [facility] PRN Reason: Protocol Last Admin: 03/26/17 05:25 Dose: Not Given Hydralazine HCl (Apresoline Iv*) 10 mg IV Q4H PRN PRN Reason: Systolic >170 Last Admin: 03/26/17 03:42 Dose: 10 mg Hydrochlorothiazide (Hydrodiuril Tab*) 25 mg PO DAILY [facility] Last Admin: 03/26/17 08:37 Dose: 25 mg Sodium Chloride (Ns 0.9% 1000 Ml*) 1,000 mls @ 75 mls/hr IV PER RATE [facility] Last Admin: 03/26/17 03:37 Dose: 75 mls/hr Cefazolin Sodium/Dextrose (Kefzol Premix(*)) 2 gm in 50 mls @ 100 mls/hr IVPB Q8H [facility] Last Admin: 03/26/17 03:37 Dose: 100 mls/hr Levothyroxine Sodium (Synthroid Tab*) 100 mcg PO 0600 [facility] Last Admin: 03/26/17 05:25 Dose: 100 mcg Magnesium Hydroxide (Milk Of Magnesia Liq*) 30 ml PO QAM PRN PRN Reason: CONSTIPATION Last Admin: 03/25/17 13:29 Dose: 30 ml Metoprolol Tartrate (Lopressor Tab*) 12.5 mg PO Q12HR [facility] Last Admin: 03/26/17 08:37 Dose: 12.5 mg Morphine Sulfate (Morphine Inj (Syringe)*) 4 mg IV Q4H PRN PRN Reason: PAIN Last Admin: 03/22/17 21:02 Dose: 4 mg Oxycodone/Acetaminophen (Percocet 5/325 Tab*) 2 tab PO Q4H PRN PRN Reason: PAIN Last Admin: 03/25/17 01:03 Dose: 2 tab Oxycodone/Acetaminophen (Percocet 5/325 Tab*) 1 tab PO Q4H PRN PRN Reason: PAIN Last Admin: 03/24/17 16:34 Dose: 1 tab Senna (Senokot Tab*) 2 tab PO BID PRN PRN Reason: CONSTIPATION Last Admin: 03/26/17 05:25 Dose: 2 tab Vital Signs 03/25/17 03/25/17 03/25/17 15:37 16:04 16:08 Temperature 97.6 F Pulse Rate 102 65 Respiratory 17 Rate Blood Pressure 165/80 (mmHg) O2 Sat by Pulse 99 Oximetry 03/25/17 03/25/17 03/25/17 17:35 17:48 19:30 Temperature 97.9 F 97.9 F Pulse Rate 55 55 Respiratory 14 14 16 Rate Blood Pressure 155/63 155/63 (mmHg) O2 Sat by Pulse 99 99 Oximetry 03/25/17 03/26/17 03/26/17 23:20 03:25 07:12 Temperature 97.2 F 97.5 F Pulse Rate 97 54 Respiratory 14 12 Rate Blood Pressure 164/69 181/66 157/60 (mmHg) O2 Sat by Pulse 99 99 Oximetry 03/26/17 03/26/17 07:49 08:00 Temperature 97.9 F Pulse Rate 101 Respiratory 18 16 Rate Blood Pressure 148/81 (mmHg) O2 Sat by Pulse 98 Oximetry Oxygen Devices in Use Now: None Appearance: Pleasant, elderly male patient, OOB to chair, NAD Eyes: PERRLA Ears/Nose/Mouth/Throat: Mucous Membranes Moist Neck: NL Appearance and Movements; NL JVP Respiratory: Symmetrical Chest Expansion and Respiratory Effort, Clear to Auscultation Cardiovascular: NL Sounds; No Murmurs; No JVD, RRR Abdominal: NL Sounds; No Tenderness; No Distention Extremities: - - right knee incision c/d/i, distally nvi Neurological: Alert and Oriented x 3 Lines/Tubes/Other Access: Clean, Dry and Intact PICC Line Nutrition: Taking PO's Result Diagrams: 03/26/17 05:30 03/26/17 05:30 Additional Lab and Data: Vital Signs: Temp Pulse Resp BP Pulse Ox 98.3 F 85 18 143/61 99 03/22/17 11:31 03/22/17 11:31 03/22/17 11:10 03/22/17 11:31 03/22/17 11:31 Microbiology and Other Data: Microbiology 03/21/17 23:03 Nasal Screen MRSA (PCR)([facility]) - Final Nasal Mrsa Negative Assess/Plan/Problems-Billing Assessment: This is an 86 yo gentleman with atrial fibrillation, HTN, hypothyroidism who had a R TKA with Dr Steele 03/06/17. He returned with a large volume of blood drainage with concern for a joint hematoma. - Patient Problems (1) Postoperative wound dehiscence Comment: Management per ortho POD #4 s/p incision and drainage of right total knee arthroplasty with open wound/hematoma/wound dehiscence Continue Ancef for 6 weeks of treatment for MSSA in wound culture Home abx infusion arranged (2) S/P total knee arthroplasty Code(s): Z96.659 - PRESENCE OF UNSPECIFIED ARTIFICIAL KNEE JOINT Comment: 03/06/17 (3) Atrial fibrillation Code(s): I48.91 - UNSPECIFIED ATRIAL FIBRILLATION Comment: Rate controlled, continue metoprolol Not previously anticoagulated but on coumadin after TKA Discussed risk of stroke with PAF; patient unaware he was in afib and denies previous hx Recommend lifelong anticoagulation for afib - discussed with patient. Will d/c on Xarelto for DVT prophylaxis. Patient will discuss continuation of Xarelto with PCP. (4) Hypertension Code(s): I10 - ESSENTIAL (PRIMARY) HYPERTENSION Comment: Mostly normotensive Continue metoprolol and HCTZ (5) Hypothyroidism Code(s): E03.9 - HYPOTHYROIDISM, UNSPECIFIED Comment: Continue levothyroxine. (6) DVT prophylaxis Code(s): [id number] - Comment: SQ heparin D/c on Xarelto (7) Full code status Code(s): Z78.9 - OTHER SPECIFIED HEALTH STATUS Status and Disposition: Inpatient admission. Discharge to home.
--- NOTE | 2017-03-26 13:00 | PN ---
Progress Note - Progress Note SOAP: Subjective: POD #4 Right Knee I&D with poly exchange. States that he is doing well, happy with progress to this point. Anxious for d/c home. Denies CP/SOB or calf pain Objective: Vital Signs: Temp Pulse Resp BP Pulse Ox 97.9 F 101 16 148/81 98 03/26/17 07:49 03/26/17 07:49 03/26/17 08:00 03/26/17 07:49 03/26/17 07:49 Gen: A&O x3, NAD at rest in bed RLE: Incision C/D/I. Minimal scabbing over incision, minimal redness and edema. +f/e at ankle and MTPs, N/V intact. Calf soft/NT Labs: Laboratory Results - last 24 hr 0503/26/17 05:30 05:30 WBC 8.6 RBC 3.21 L Hgb 10.2 L Hct 31 L MCV 95 H MCH 32 H MCHC 33 RDW 14 Plt Count 439 MPV 8 Neut % (Auto) 80.1 Lymph % (Auto) 11.7 L [place] % (Auto) 6.8 Eos % (Auto) 0.8 Baso % (Auto) 0.6 Absolute Neuts (auto) 6.9 Absolute Lymphs (auto) 1.0 Absolute Monos (auto) 0.6 Absolute Eos (auto) 0.1 Absolute Basos (auto) 0.1 Absolute Nucleated RBC 0.01 Nucleated RBC % 0.1 Sodium 134 Potassium 3.6 Chloride 98 L Carbon Dioxide 26 Anion Gap 10 BUN 26 H Creatinine 0.90 Est GFR ( Amer) 102.7 Est GFR (Non-Af Amer) 79.8 BUN/Creatinine Ratio 28.9 H Glucose 93 Calcium 8.4 L C-Reactive Protein 97.08 H Assessment: POD #4 Right knee I&D with poly exchange Plan: Pt to be d/c'd to [facility] today. Cont IV abx with PICC Pt d/c'd on Xarelto for DVT ppx and Afib. Pt to f/u with Dr. Steele 10-14 days post op for suture removal, dry dressings as needed and wound care instructions provided
[2017-03-26 13:04] VITALS: BP 157/70
--- NOTE | 2017-03-27 03:31 | DS ---
MEDICINE DISCHARGE SUMMARY: DATE OF ADMISSION: 03/21/17 DATE OF DISCHARGE: 03/26/17 PROVIDER: Doris Samuel NP. ATTENDING PHYSICIAN: Dr. Holly Saini * (as dictated by Doris Samuel NP). CONSULTING PHYSICIANS: Dr. Solange Steele, Orthopedics and Dr. Bolivar Farias, Infectious Disease. PRIMARY CARE PROVIDER: Dr. Danny Rodrigues. PRIMARY DISCHARGE DIAGNOSES: 1. Right knee hematoma with wound dehiscence, status post incision and drainage. 2. Positive wound culture for methicillin-resistant Staphylococcus aureus. 3. Paroxysmal atrial fibrillation. SECONDARY DISCHARGE DIAGNOSES: 1. Hypertension. 2. Hypothyroidism. 3. Melanoma. 4. Right total knee arthroplasty recently on 03/06/17. MEDICATIONS ON DISCHARGE: 1. Senna four tabs daily p.r.n. 2. Metamucil 3 capsules daily. 3. Levothyroxine 118 mcg daily. 4. Percocet 2 tabs q. 4 hours p.r.n. 5. Hydrochlorothiazide 25 mg q.a.m. 6. Acetaminophen 650 mg q.6 hours p.r.n. or 325 mg per rectum q.6 hours p.r.n. 7. Milk of magnesia 30 mL q.a.m. p.r.n. 8. Xarelto 10 mg daily. This is a new medication for DVT prophylaxis. 9. Metoprolol tartrate 12.5 mg q.12 hours. This is a new medication for treatment of the patient's paroxysmal atrial fibrillation. HOSPITAL COURSE OF STAY: For full details, please refer to the H and P provided by Chante Casron on 03/21/17. In summary, Mr. Cole is an 86-year-old male with past medical history as previously stated, who presented to the ER with concern for bleeding from his incision site. He had been discharged to home on 03/09/17 and follow up with Dr. Steele on 03/19/17, at which time, the sutures were removed. He was also started on antibiotics that day. In the emergency room, the patient was seen in consultation by Dr. Steele, who suspected a joint hematoma and attempted to aspirate the joint at the bedside. The patient was admitted for drainage of the knee joint. On 03/22/17, the patient underwent irrigation and debridement with washout. Because there was some wound dehiscence seen, the patient was started on antibiotics with concern for bacterial exposure given his hardware. ID was consulted and the patient was started on IV ceftriaxone and vancomycin until cultures came back. Wound cultures showed MSSA growth and the patient was switched to Ancef, which he has tolerated well. The patient was recommended by Dr. Farias to remain on IV antibiotic treatment up to 6 weeks. The patient was setup with PICC line and has been receiving Ancef here and tolerating it well. Of note, when the patient was first admitted, it was noted that the patient was in atrial fibrillation with rate in the 90s. The patient had no acute complaints including denial of chest pain or shortness of breath. Then converted back to sinus rhythm. I did discuss this with the patient and his and expressed concern that the patient may likely be going in and out of AFib even while in the community. However, the patient does state that he has had a relatively comprehensive workup with Dr. Saleem recently and was told that he had no arrhythmias that knew off. He does report episode that occurred approximately a year ago where he became very lightheaded and short of breath, but he is unaware of any acute or cardiac findings that could explain this event. He is not sure if he has ever been told he gets AFib before. We did discuss the risks involved with paroxysmal atrial fibrillation given that he is unable to recognize when he is in AFib. We did discuss continuing anticoagulation as this may be recommended for him given his age and his increased stroke risk. He was receptive to the information, but stated that he would like to further discuss starting anticoagulation with Dr. Rodrigues as an outpatient. In terms of the patient's anticoagulation here in the hospital, the patient has been on subcu heparin for anticoagulation and DVT prophylaxis. I did discuss this with Dr. Steele, who did ask the patient to be discharged to home on anticoagulation again for DVT prophylaxis following his most recent surgery. I discussed with the patient instead of using warfarin that we can try Xarelto and that if he tolerates this well, this could be continued for stroke prevention as well for his atrial fibrillation. He is in agreement with this. I did dose the Xarelto at 10 mg daily as opposed to 20 mg because this has been more appropriate dose for VTE prophylaxis in joint replacement patient. The patient was advised to discuss the use of Xarelto with his PCP and if he choses to remain on the Xarelto for stroke prevention or the atrial fibrillation, then he should increase the dose from 10 mg to 20 mg. The patient was also started on metoprolol here, which he has tolerated well and his rates have been well controlled here. The patient was also started instructed to continue and follow up with his PCP to discuss this medication as well. On the day of discharge, the patient was in stable condition. He has reported decrease in swelling and pain to the extremity and is able to ambulate safely on the extremity. He is eager for discharge to home. Home nursing services have been setup for IV antibiotic infusion and PICC care. His pain is well controlled. No acute complaints are concerned. The patient is to follow up with Dr. Farias in 1 to [address] Steele within 1 week. The patient will also take care of calling his PCP for followup. CONCERNS AT DISCHARGE: Mr. Cole will be discharged to home, lives at [place], on 03/26/17 with recommended followup as previously mentioned. DIET: Heart healthy diet. ACTIVITY: As tolerated. CONDITION: Stable. DISPOSITION: To home. TIME SPENT: Time spent on this discharge was approximately 55 minutes. Again, this is only a brief summary of the patient's hospital course of stay. For full details, please refer to the full medical record. If you have any further questions or any further concern, please feel free to contact me at . DORIS SAMUEL NP CC: Dr. Danny Rodrigues; Dr. Solange Steele; Dr. Bolivar Farias * [id number]/[facility] #: [id number] MTDD
== END 2017-03-26 14:40 | disposition home or self-care (01) | DRG 908 ==
LOC: ED 17:15 → MED 19:50 → ED 20:00 → SSU 03-25 17:40
PROVIDERS: ADMIT Internal Medicine; ATTEND Internal Medicine
PROC: 0SPC0JC Removal of Synthetic Substitute from Right Knee Joint, Patellar Surface, Open Approach (ICD-10-PCS; principal; 2017-03-21)
PROC: 0SBC0ZZ Excision of Right Knee Joint, Open Approach (ICD-10-PCS; 2017-03-21)
PROC: 0S9C0ZZ Drainage of Right Knee Joint, Open Approach (ICD-10-PCS; 2017-03-21)
PROC: 02HV33Z Insertion of Infusion Device into Superior Vena Cava, Percutaneous Approach (ICD-10-PCS; 2017-03-23)
DX: M96.840 Postprocedural hematoma of a musculoskeletal structure following a musculoskeletal system procedure (principal); T81.32XA Disruption of internal operation (surgical) wound, not elsewhere classified, initial encounter; I48.91 Unspecified atrial fibrillation; A49.01 Methicillin susceptible Staphylococcus aureus infection, unspecified site; I10 Essential (primary) hypertension; E03.9 Hypothyroidism, unspecified; Z96.651 Presence of right artificial knee joint; Z80.8 Family history of malignant neoplasm of other organs or systems; Z79.1 Long term (current) use of non-steroidal anti-inflammatories (NSAID); Z79.891 Long term (current) use of opiate analgesic; Z79.899 Other long term (current) drug therapy; Z87.891 Personal history of nicotine dependence
CPT/HCPCS: 36415; 71010; 80048; 80053; 81003; 81015; 83605; 83735; 84145; 85025; 85610; 85730; 86140; 87070; 87073; 87077; 87186; 87205; 87640; 87641; 88300; 93005; 99203; A9270-GY; C1751; C1776; G0463; J0360; J0690; J0696; J1170; J1644; J2250; J2270; J2405; J2543; J2704; J3010; J3370

== ENCOUNTER 2017-12-22 11:23 | Inpatient (IN) | payer MEDICARE, OTHER ==
[2017-12-22 12:00] LABS: ABS Basophils 0 10^3/ul (0-0.2); ABS Eosinophils 0.1 10^3/ul (0-0.6); ABS Lymphocytes 0.8 10^3/ul (1.0-4.8); ABS Monocytes 0.6 10^3/ul (0-0.8); ABS Neutrophils 3.6 10^3/ul (1.5-7.7); ABS Nucleated RBC 0 10^3/ul; Eosinophil % 2.8 % (0-6); Hematocrit 38 % (42-52); Hemoglobin 12.9 g/dl (14.0-18.0); Lymphocyte % 15.3 % (25-47); Mean Corpuscular HGB Conc 34 g/dl (31-36); Mean Corpuscular Hemoglobin 34 pg (27-31); Mean Corpuscular Volume 101 fL (80-94); Mean Platelet Volume 8 um3 (7.4-10.4); Nucleated Red Blood Cells % 0.2; Platelet Count 189 10^3/ul (150-450); Red Cell Distribution Width 14 % (10.5-15); White Blood Count 5.2 10^3/ul (3.5-10.8)
[2017-12-22 12:17] LABS: EGFR Non-African American 40.4 (>60)
--- NOTE | 2017-12-22 12:17 | RAD ---
HISTORY: Bradycardia COMPARISONS: April 10, 2017 VIEWS: 1: frontal portable view of the chest at 11:55 AM FINDINGS: LINES AND TUBES: None. CARDIOMEDIASTINAL SILHOUETTE: The cardiac silhouette is enlarged. The cardiomediastinal silhouette is otherwise normal for portable technique. PLEURA: The costophrenic angles are sharp. No pleural abnormalities are noted. LUNG PARENCHYMA: There is hyperinflation. ABDOMEN: The upper abdomen is clear. There is no subphrenic gas. BONES AND SOFT TISSUES: No bone or soft tissue abnormalities are noted. IMPRESSION: CARDIOMEGALY. HYPERINFLATION. NO ACTIVE CARDIOPULMONARY DISEASE.
[2017-12-22] MEDS ORDERED: ATROPINE 0.4 MG/ML IV PRN (14:03)
[2017-12-22] MEDS ORDERED: Potassium Chlor TAB* 20 MEQ TAB.ER PO ONE (14:27)
[2017-12-22] MEDS ORDERED: Atropine SYRINGE* 0.1 MG/ML 10 ML SYRINGE (1 MG) IV PRN (15:00)
[2017-12-22 15:58] LABS: Urine Appearance Clear; Urine Blood Negative (Negative); Urine Color Yellow; Urine Ketones Negative (Negative); Urine Protein Negative (Negative); Urine Specific Gravity 1.017 (1.010-1.030); Urine Urobilinogen Negative (Negative)
[2017-12-22] MEDS ORDERED: LORazepam TAB(*) 0.5 MG PO PRN (18:44)
--- NOTE | 2017-12-22 18:55 | CONSULT ---
Subjective Date of Service: 12/22/17 Interval History: Date of admission and consult 12/22/2017 PMD: Dr. Rodrigues Banquet Set Up Person: Dr. 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 At Dr. Goff visit in 10/2017, there was reported to be a 90% chance the infection is cured but it was opted for lifelong antibiotics which he has tolerated well. He is preparing to start semester class this Sunday. He had noted his heart rate had been in the low to mid 40's for the last month associated with worsening dyspnea and dizziness. He stopped his metoprolol 4 days ago but BP went up and pulse remained htere. He had several episodes when he had to sit down because of lightheadedness. He had no syncope. Two days ago his heart rate was 38 and had remained low. He call PMD's office and was told to come to ER. He was found with mixed SA and AV node dysfunction. His heart rate at times was 30 bpm while talking with me. There has been no chest discomfort or palpitations. He is on a very low dose beta-yogesh of metoprolol 12.5 mg po bid. There are no severe electrolyte abnormalities and his TSH is normal. He usually drinks a beer, glass of wine and eliud in the evenings and is requesting a beer. medication list reviewed verbally on 09/14/2017 Allergies: No Known Drug Allergy 12/08/13 allergy list reviewed on 09/14/2017 PMH: thyroid dysfunction Hypertension melanoma HFpEF/probable CKD Surgical Hx: Appendectomy, Hernia Repair, quadricep repair, knee replacement FH: cardiac, cancer, hypertension. Father: due to Natural Causes - (age 96 Years). Mother: Pacemaker. due to MT - (age 92 Years). 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 Personal Habits: Smoking: Patient is a former smoker.Cigarette Use: Never Smoked Cigarettes - Pt formerly smoked a pipe from 1948 to 2006.Alcohol: Drinks 4 Alcoholic Beverages Per Day.Drug Use: Denies Drug Use.Daily Caffeine: Consumes on average 4 cups of regular coffee per day.Exercise Type: Exercises regularly - Medications Active Medications: Atropine Sulfate (Atropine Syringe*) 0.5 mg IV Q3M PRN PRN Reason: BRADYCARDIA Bumetanide (Bumex Tab*) 2 mg PO DAILY [facility] Cefadroxil (Duricef Cap*) 500 mg PO BID [facility] Levothyroxine Sodium (Synthroid Tab*) 150 mcg PO DAILY [facility] Potassium Chloride (Klor Con Er Tab*) 10 meq PO DAILY [facility] Home Medications: Levothyroxine TAB* [Synthroid 100 MCG TAB*] 150 mcg PO DAILY 03/21/17 [History Confirmed 12/22/17] Bumetanide TAB* [Bumex 2 MG TAB*] 2 mg PO DAILY 08/03/17 [History Confirmed ] Cefadroxil 500 mg PO BID 08/03/17 [History Confirmed 12/22/17] Metoprolol Tartrate TAB* [Lopressor TAB*] 12.5 mg PO BID 08/03/17 [History Confirmed 12/22/17] Potassium Chlor TAB* [Klor Con ER TAB 10 MEQ*] 10 meq PO DAILY 08/03/17 [ History Confirmed 12/22/17] Review of Systems - Measurements Intake and Output: Intake and Output Last 24 Hours 12/20/17 12/21/17 12/22/17 12/23/17 06:59 06:59 06:59 06:59 Output Total 300 Balance -300 Weight 165 lb 5.547 oz Output: Urine 300 - Review of Systems Constitutional Symptoms: Positive: Weakness Negative: Weight Gain, Weight Loss, Fatigue, Fever, Night Sweats, Unexplained Falls Dermatology: Negative: Rash, Skin Lesions HEENT: Negative: Change in Hearing, Vertigo Eyes: Negative: Change in Vision, Double Vision Thyroid: Negative: Goiter, Thyroid Nodule, Cold Intolerance, Heat Intolerance, Sweatiness, Tremor, Frequent Defecation, Constipation, Palpitations Pulmonary: Negative: Cough, Sputum, Hemoptysis, Wheezing, Respiratory Distress, Shortness of Breath, COPD Cardiology: Positive: Shortness of Breath, Faintness Negative: Chest Pain, Palpitations, Swelling of Ankles, Peripheral Vascular Dis, Edema, Syncope, Claudication, Paroxysmal Nocturnal Dyspnea, Orthopnea Gastroenterology: Negative: Abdominal Pain, Nausea, Vomiting, Anorexia, Heartburn, Constipation , Diarrhea, Haematemesis, Melena Genital - Urinary: Negative: Dysuria, Hematuria Musculoskeletal: Negative: Joint Pain, Joint Stiffness Endocrinology: Positive: Thyroid Problems Negative: Adrenal Problems, Gonadal Problems, Family Hx Endocrine Disorders, Obesity, Diabetes, Hyperglycemia, Hypoglycemia, Polydipsia, Polyuria Hematologic/Lymphatic: Negative: Anemia, Easy Brusing, Hx Leukemia, Hx Lymphoma, Use of Anticoagulant, Use of Antiplatelet Drugs Neurology: Negative: Headaches, Migraines, Change in Vision, Diplopia, Dizziness, Change in Balancing, Change in Coordination, Change in Memory, Hx of Stroke\TIA , Hx Seizures Psychiatry: Negative: Depression, Anxiety, Weight Change, Guilt Feelings, Tearfulness, Unusual Fatigue Allergic/Immunologic: Negative: Hx Anaphylaxis, Hx Angioedema, Hx HIV, Immunocompromise Review of Systems Statement: All other review of systems negative, unless stated above. Objective Vital Signs: Temp Pulse Resp BP Pulse Ox 98.1 F 34 20 133/54 99 12/22/17 14:57 12/22/17 18:37 12/22/17 18:39 12/22/17 18:31 12/22/17 18:37 Appearance: NAD, very pleasant Ears/Nose/Mouth/Throat: Clear Oropharnyx, Mucous Membranes Moist Neck: NL Appearance and Movements; NL JVP Respiratory: Symmetrical Chest Expansion and Respiratory Effort, Clear to Auscultation Cardiovascular: - - bradycardic and irregular, Abdominal: NL Sounds; No Tenderness; No Distention Extremities: No Edema, No Clubbing, Cyanosis Skin: No Rash or Ulcers Neurological: Alert and Oriented x 3 Laboratory Results: 12/22/17 11:45 12/22/17 11:45 Total Bilirubin 0.40 mg/dL (0.2-1.0) 12/22/17 11:45 AST 28 U/L (13-39) 12/22/17 11:45 ALT 21 U/L (7-52) 12/22/17 11:45 Alkaline Phosphatase 80 U/L (34-104) 12/22/17 11:45 CK-MB (CK-2) 9.9 ng/mL (0.6-6.3) H 12/22/17 11:45 B-Natriuretic Peptide 289 pg/mL (-100) H 12/22/17 11:45 Total Protein 7.0 g/dL (6.4-8.9) 12/22/17 11:45 Albumin 4.1 g/dL (3.2-5.2) 12/22/17 11:45 Globulin 2.9 g/dL (2-4) 12/22/17 11:45 Albumin/Globulin Ratio 1.4 (1-3) 12/22/17 11:45 TSH 0.80 mcIU/mL (0.34-5.60) 12/22/17 11:45 12/22/17 11:45 Troponin I 0.03 CRP 11/21/2017: 2.07 Diagnostic Imaging: DRE 08/06/2017: Normal LVEF, severe RA dilation, dilated LA mild-moderate valvular regurgitation, no echo evidence of endocarditis, moderate atherosclerotic plaque of aorta 06/2017: borderline aortic stenosis, severe LA dilation, moderate pHTN cxr 12/22/2017: no active disease EKG Data: EKG admission: RBBB, Atrial escape beats conducted with 1AVB followed by sinus beat 1AVB followed by sinus pause and escape beat likely from at or just below AV node, then likely 2 conducted atrial escape beats EKG 2: sinus bradycardia, 1AVB, RBBB Tele: Highest degree AV block seen is 2:1 (? type 1 vs. 2 second degree block), rate to 30 bpm at times when awake and conversing. Assessment/Plan Major Cole is an 87 year old man with a history including but not limited to chronic suppressive antibiotic therapy from a prior MSSA prosthetic knee infection with no active signs of systemic infection presents with symptomatic bradycardia from mixed sinus and AV node disease on extremely low dose beta- yogesh and no reversible causes, LVEF normal. No syncope. - Agree with orders, will add SQ heparin 5000 units tid for DVT prophylaxis last dose Sunday (ordered) - Will order 25 mg of hydralazine 25 mg po tid PRN for SBP > 160 mmHg - At patients requested, a beer and glass of wine ordered for tonight which he is accustomed to. - Dual chamber permanent cardiac pacemaker indicated and recommended. Risks, benefits and alternatives discussed and patient wishes to proceed. Discussed with Dr. Saleem will arrange for Sunday. - Would check with ID regarding any issues with this plan from an infection standpoint. Thank you for allowing me to participate in the cardiovascular care of this patient. Please do not hesitate to contact me with questions or concerns.
--- NOTE | 2017-12-22 21:10 | HP ---
HISTORY AND PHYSICAL: DATE OF ADMISSION: 12/22/17 ADMITTING PROVIDER: Eduar Sparks MD PRIMARY CARE PROVIDER: Danny Rodrigues MD PRIMARY PAPER SEALER: Dr. Saleem. CHIEF COMPLAINT: Increased shortness of breath, bradycardia, mild dizziness. HISTORY OF PRESENT ILLNESS: Mr. 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 He follows with Dr. Saleem, who has discussed potential permanent pacemaker in the past. The patient stopped taking his metoprolol 12.5 mg twice a day few days prior to admission and noticed no change in his heart rate, but after 24 hours, drastic elevation in his blood pressure from 140s/80s to the 180s/90s. He restarted the metoprolol 36 hours prior to admission. He reports 1 episode 4 to 5 months ago when he had to be admitted for increased diuresis. He was able to walk up 2 flights of stairs before getting short of breath. He denies any orthopnea. He is unable to rely what his goal dry weight is. He states his personal goal was weight of 155 and currently weighs around 163 pounds. He is on Bumex 2 mg daily with as needed metolazone. He had a transesophageal echocardiogram on 08/06/17, which showed preserved ejection fraction of 52% to 55%, [id number] aortic regurgitation, [id number] tricuspid regurgitation, and borderline pulmonary hypertension. He reportedly had a repeat echo with Dr. Saleem as an outpatient in September, which the patient reports was not significantly changed. 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 The patient denies any chest tightness or chest pressure. Upon presentation to [facility] [place] [facility], he was found to have blood pressure of 148/58, satting 99% on room air, and heart rate was 36. He had an EKG, which was read as atrial fibrillation. There is some evidence of p waves with different morphologies, but with at least first-degree AV block, also right bundle branch block, and left posterior fascicular block. On telemetry, he seems to be alternating between the first- degree AV block but with periods of pauses up to 3.3 seconds were observed. He is being admitted for symptomatic bradycardia and consideration for a permanent pacemaker placed. Dr. Raj Blanchard of Cardiology was consulted while the patient was in the emergency room. PAST MEDICAL HISTORY: Includes hypertension; atrial fibrillation; hypothyroidism; melanoma, status post resection, right shoulder; right total knee arthroplasty complicated with MSSA infection, on likely lifetime antibiotics. PAST SURGICAL HISTORY: Removal of melanoma, right shoulder; left quadriceps tear; appendectomy, age 7; right total knee arthroplasty, 03/06/17. MEDICATIONS: Include: 1. Metoprolol 12.5 mg p.o. b.i.d. 2. Levothyroxine 150 mcg p.o. daily. 3. Potassium chloride 10 mEq p.o. daily. 4. Bumex 2 mg p.o. daily. 5. Cefadroxil 500 mg p.o. b.i.d. ALLERGIES: No known drug allergies. FAMILY HISTORY: Mom of heart disease at age 94. 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 He was a former pipe smoker, quit 11 years ago. Never a cigarette smoker. He drinks 1 beer, 3 ounces of wine, and 1 to 2 ounces of eliud daily. His healthcare proxy is Barak Cole, his . REVIEW OF SYSTEMS: A complete 14-point review of systems is negative except as per HPI. PHYSICAL EXAMINATION GENERAL APPEARANCE: No acute distress, looking stated age, lying in the hospital bed. VITAL SIGNS: Blood pressure currently 138/87, satting 100% on room air, respiratory rate 10, and pulse rate varying between mid 30s to low 40s, but hospitalists sometimes find to as low as 27. HEENT: Normocephalic, atraumatic. Pupils equal, round, and reactive to light. Extraocular motions are intact. NECK: Supple. No cervical lymphadenopathy. RESPIRATORY: Clear to auscultation bilaterally with no wheezing, rales, or rhonchi. CARDIOVASCULAR: Regular rate and bradycardic rhythm. No murmurs, rubs, or gallops appreciated. ABDOMEN: Soft, but slightly distended. No tenderness. No rebound or guarding. No Aquino's sign. EXTREMITIES: Warm, well perfused, trace to 1+ edema bilaterally. Surgical scars, bilateral knees. Right knee is slightly more swollen than left, but no erythema, warmth. NEURO: Cranial nerves II through XII intact. Sensation intact. Moving all extremities. Oracle Database Developer strength 5/5. Flexion and dorsiflexion 5/5 bilaterally. SKIN: No lesions or rashes. DIAGNOSTIC STUDIES/LAB DATA: White count 5.2, hemoglobin 12.9, hematocrit 38, MCV 101, platelets 189. Sodium 138, potassium 3.4, chloride 97, carbon dioxide 32, BUN 43, creatinine 1.62, lactic acid 1.6, glucose 95, magnesium 2.2. Total bili 0.4, AST 28, ALT 21, alk phos 80. BNP 289. Troponin 0.03. TSH 0.8, total T4 9.29. Imaging: Chest x-ray with no acute pulmonary disease, hyperinflation of the lung parenchyma. ASSESSMENT AND PLAN: The patient is an 87-year-old male with past medical history of right bundle branch block; hypertension; atrial fibrillation; methicillin- sensitive Staphylococcus aureus, right knee infection, on chronic antibiotics, presenting with symptomatic bradycardia mostly in the mid 30s and evidence of at least first degree heart block, if not some degree of high- degree heart block and paroxysmal atrial fibrillation. Appreciate recommendations of Dr. Raj Blanchard, Cardiology. The patient will have his electrolytes repleted to have magnesium above 2, potassium above 4. He has pacer plans in place and will be monitored initially in the ICU until additional better EKG and rhythm determination can be obtained. The patient denies any chest pain, pressure. Troponin initially was negative, we will trend those. Will have atropine at the bedside as necessary for symptomatic bradycardia, heart rates below 30 or hypotensive. The patient will likely require permanent pacemaker on 12/24/17. We will hold his metoprolol 12.5 mg b.i.d. We will try to obtain the outpatient echocardiogram from September with Dr. Saleem. For his hypothyroidism, we will continue his Synthroid 150 mcg p.o. daily. 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 b.i.d. He desires to be a full code and his medical surrogate is Barak Cole, his . He can eat a heart-healthy diet, n.p.o. at midnight, Sunday night, but we will have to discuss with Cardiology exact timing and confirm plans. The patient is not volume overloaded on exam. We will continue his Bumex 2 mg p.o. daily. Monitor daily weights. Clarify outpatient records from Dr. Saleem' s office what his goal weight truly is. [id number]/[facility] #: [id number] MTDD
[2017-12-22] MEDS: Cefadroxil CAP* 500 MG PO SCH (21:36)
[2017-12-22] MEDS: Heparin VIAL(*) 5000 UNITS/ML VIAL (FIVE THOUSAND) SUBCUT SCH (21:37)
[2017-12-23 05:32] LABS: EGFR Non-African American 46.3 (>60)
[2017-12-23 05:38] LABS: INR 0.92 (0.77-1.02)
[2017-12-23] MEDS: Heparin VIAL(*) 5000 UNITS/ML VIAL (FIVE THOUSAND) SUBCUT SCH ×3 (06:08→21:32)
[2017-12-23] MEDS ORDERED: Bumetanide TAB* 2 MG PO SCH (09:00)
[2017-12-23] MEDS: Levothyroxine TAB* 150 MCG TAB PO SCH (09:02)
[2017-12-23] MEDS: Potassium Chlor TAB* 10 MEQ TAB.ER PO SCH (09:03)
[2017-12-23] MEDS: Cefadroxil CAP* 500 MG PO SCH ×2 (09:04→21:08)
--- NOTE | 2017-12-23 09:47 | PN ---
Subjective Date of Service: 12/23/17 Interval History: Pt with very minor CONTRERAS. no light-headedness, chest tightness/pain/pressure or SOB at rest. 4 sec pause at 0700. HR mostly mid 30s. His class was postponed 1 week. Objective Active Medications: Atropine Sulfate (Atropine Syringe*) 0.5 mg IV Q3M PRN PRN Reason: BRADYCARDIA Bumetanide (Bumex Tab*) 2 mg PO DAILY [facility] Last Admin: 12/23/17 09:04 Dose: 2 mg Cefadroxil (Duricef Cap*) 500 mg PO BID [facility] Last Admin: 12/23/17 09:04 Dose: 500 mg Heparin Sodium (Porcine) (Heparin Vial(*)) 5,000 units SUBCUT Q8HR [facility] Stop: 12/23/17 22:01 Last Admin: 12/23/17 06:08 Dose: 5,000 units Hydralazine HCl (Apresoline Tab*) 25 mg PO TID PRN PRN Reason: SBP > 160 mmHg Levothyroxine Sodium (Synthroid Tab*) 150 mcg PO DAILY [facility] Last Admin: 12/23/17 09:02 Dose: 150 mcg Potassium Chloride (Klor Con Er Tab*) 10 meq PO DAILY [facility] Last Admin: 12/23/17 09:03 Dose: 10 meq Vital Signs - 8 hr 12/23/17 12/23/17 12/23/17 02:00 02:01 03:00 Temperature Pulse Rate 31 33 38 Respiratory 13 16 14 Rate Blood Pressure 112/56 (mmHg) O2 Sat by Pulse 96 95 97 Oximetry 12/23/17 12/23/17 12/23/17 03:01 03:45 04:00 Temperature 98.0 F Pulse Rate 37 30 Respiratory 15 15 Rate Blood Pressure 132/53 (mmHg) O2 Sat by Pulse 95 98 Oximetry 12/23/17 12/23/17 12/23/17 04:01 05:00 05:01 Temperature Pulse Rate 46 46 45 Respiratory 12 14 14 Rate Blood Pressure 115/45 122/60 (mmHg) O2 Sat by Pulse 96 97 96 Oximetry 12/23/17 12/23/17 12/23/17 06:00 06:15 07:00 Temperature Pulse Rate 36 47 57 Respiratory 18 15 16 Rate Blood Pressure 135/71 (mmHg) O2 Sat by Pulse 96 97 96 Oximetry 0112/23/17 12/23/17 07:01 07:19 08:00 Temperature 98.9 F Pulse Rate 66 45 Respiratory 19 14 Rate Blood Pressure 149/72 154/68 (mmHg) O2 Sat by Pulse 98 97 Oximetry 12/23/17 09:00 Temperature Pulse Rate 33 Respiratory 20 Rate Blood Pressure (mmHg) O2 Sat by Pulse 87 Oximetry Oxygen Devices in Use Now: None Appearance: NAD, eating breakfast. Eyes: No Scleral Icterus, PERRLA Ears/Nose/Mouth/Throat: NL Teeth, Lips, Gums, Mucous Membranes Moist Neck: NL Appearance and Movements; NL JVP, Trachea Midline Respiratory: Symmetrical Chest Expansion and Respiratory Effort, Clear to Auscultation Cardiovascular: - - bradycardic with some irregularity, no m/r/g Abdominal: NL Sounds; No Tenderness; No Distention, No Hepatosplenomegaly Extremities: - - right leg trace edema, knee without erythema or warmth. Skin: No Rash or Ulcers, No Nodules or Sclerosis Neurological: Alert and Oriented x 3, NL Sensation, NL Muscle Strength and Tone Result Diagrams: 12/22/17 11:45 12/23/17 05:00 Additional Lab and Data: Laboratory Results - last 24 hr 12/22/17 12/22/17 12/22/17 11:45 11:45 11:45 WBC 5.2 RBC 3.80 L Hgb 12.9 L Hct 38 L MCV 101 H MCH 34 H MCHC 34 RDW 14 Plt Count 189 MPV 8 Neut % (Auto) 69.6 Lymph % (Auto) 15.3 L [place] % (Auto) 11.5 H Eos % (Auto) 2.8 Baso % (Auto) 0.8 Absolute Neuts (auto) 3.6 Absolute Lymphs (auto) 0.8 L Absolute Monos (auto) 0.6 Absolute Eos (auto) 0.1 Absolute Basos (auto) 0 Absolute Nucleated RBC 0 Nucleated RBC % 0.2 INR (Anticoag Therapy) Sodium 138 Potassium 3.4 L Chloride 97 L Carbon Dioxide 32 Anion Gap 9 BUN 43 H Creatinine 1.62 H Est GFR ( Amer) 52.0 Est GFR (Non-Af Amer) 40.4 BUN/Creatinine Ratio 26.5 H Glucose 95 Lactic Acid Calcium 9.3 Magnesium 2.2 Total Bilirubin 0.40 AST 28 ALT 21 Alkaline Phosphatase 80 Total Creatine Kinase 195 CK-MB (CK-2) 9.9 H Troponin I 0.03 B-Natriuretic Peptide 289 H Total Protein 7.0 Albumin 4.1 Globulin 2.9 Albumin/Globulin Ratio 1.4 Vitamin B12 Folate TSH 0.80 Thyroxine (T4) 9.29 Urine Color Urine Appearance Urine pH Ur Specific [place] Urine Protein Urine Ketones Urine Blood Urine Nitrate Urine Bilirubin Urine Urobilinogen Ur Leukocyte Esterase Urine Glucose Urine Ascorbic Acid 12/22/17 12/22/17 12/23/17 11:45 15:45 05:00 WBC RBC Hgb Hct MCV MCH MCHC RDW Plt Count MPV Neut % (Auto) Lymph % (Auto) [place] % (Auto) Eos % (Auto) Baso % (Auto) Absolute Neuts (auto) Absolute Lymphs (auto) Absolute Monos (auto) Absolute Eos (auto) Absolute Basos (auto) Absolute Nucleated RBC Nucleated RBC % INR (Anticoag Therapy) Sodium 137 Potassium 4.0 Chloride 102 Carbon Dioxide 32 Anion Gap 3 BUN 40 H Creatinine 1.44 H Est GFR ( Amer) 59.5 Est GFR (Non-Af Amer) 46.3 BUN/Creatinine Ratio 27.8 H Glucose 99 Lactic Acid 1.6 Calcium 8.4 L Magnesium 2.2 Total Bilirubin AST ALT Alkaline Phosphatase Total Creatine Kinase CK-MB (CK-2) Troponin I B-Natriuretic Peptide Total Protein Albumin Globulin Albumin/Globulin Ratio Vitamin B12 346 Folate 16.12 TSH Thyroxine (T4) Urine Color Yellow Urine Appearance Clear Urine pH 6.0 Ur Specific [place] 1.017 Urine Protein Negative Urine Ketones Negative Urine Blood Negative Urine Nitrate Negative Urine Bilirubin Negative Urine Urobilinogen Negative Ur Leukocyte Esterase Negative Urine Glucose Negative Urine Ascorbic Acid * H 12/23/17 05:00 WBC RBC Hgb Hct MCV MCH MCHC RDW Plt Count MPV Neut % (Auto) Lymph % (Auto) [place] % (Auto) Eos % (Auto) Baso % (Auto) Absolute Neuts (auto) Absolute Lymphs (auto) Absolute Monos (auto) Absolute Eos (auto) Absolute Basos (auto) Absolute Nucleated RBC Nucleated RBC % INR (Anticoag Therapy) 0.92 Sodium Potassium Chloride Carbon Dioxide Anion Gap BUN Creatinine Est GFR ( Amer) Est GFR (Non-Af Amer) BUN/Creatinine Ratio Glucose Lactic Acid Calcium Magnesium Total Bilirubin AST ALT Alkaline Phosphatase Total Creatine Kinase CK-MB (CK-2) Troponin I B-Natriuretic Peptide Total Protein Albumin Globulin Albumin/Globulin Ratio Vitamin B12 Folate TSH Thyroxine (T4) Urine Color Urine Appearance Urine pH Ur Specific [place] Urine Protein Urine Ketones Urine Blood Urine Nitrate Urine Bilirubin Urine Urobilinogen Ur Leukocyte Esterase Urine Glucose Urine Ascorbic Acid Microbiology and Other Data: Microbiology 12/22/17 15:50 Nasal Nasal Screen MRSA (PCR)([facility]) - Final Mrsa Negative Assess/Plan/Problems-Billing Assessment: 87 yo male PMH diastolic CHF, RBBB, HTN, right knee hardware complicated by MSSA infection on chronic cefadroxil, daily EtOH presenting with symptomatic bradycardia 30s with e/o up to 2 degree heart block (2:1) with SA and AV node dysfunction, pauses up to 4 sec. Scheduled PPM 12/24. 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 appreciate cardiology recs holding home metoprolol 12.5mg BID external pacer pads in place prn atropine 0.6mg q5min npo midnight. planned PPM with Dr. Saleem 12/24 alternates with 1st degree try to get a hold of Dr. Farias in re to his chronically treated MSSA infection of right knee. Continue cefadroxil. (2) Bradycardia Current Visit: No Status: Acute Code(s): R00.1 - BRADYCARDIA, UNSPECIFIED SNOMED Code(s): 11660949 Comment: plan per above(2nd degree heart block). PPM planned. (3) Hypertension Current Visit: No Status: Chronic Code(s): I10 - ESSENTIAL (PRIMARY) HYPERTENSION SNOMED Code(s): 51858250 Comment: hydralazine prn. SBP 115-150s holding home BB given 2nd degree heart block and symptomatic bradycardia. (4) Hypothyroidism Current Visit: No Status: Chronic Code(s): E03.9 - HYPOTHYROIDISM, UNSPECIFIED SNOMED Code(s): 90379253 Comment: Continue levothyroxine 150mcg daily. TSH and Total T3 wnl. (5) Daily consumption of alcohol Current Visit: Yes Status: Acute Code(s): JTI0532 - SNOMED Code(s): 956534519 Comment: nightly beer from dietary. Status and Disposition: medicine inpatient. in ICU with external pacer pads until PPM. Attending: Eduar Sparks
--- NOTE | 2017-12-23 11:22 | PN ---
Subjective Date of Service: 12/23/17 Interval History: 12/23/2017 f/u symptomatic bradycardia No CP or syncope is visiting Off very low dose beta-yogesh, K normal Tele 4 second pause while awake, rate low to mid 30's while conversing this AM Medications Active Medications: Atropine Sulfate (Atropine Syringe*) 0.5 mg IV Q3M PRN PRN Reason: BRADYCARDIA Bumetanide (Bumex Tab*) 2 mg PO DAILY [facility] Last Admin: 12/23/17 09:04 Dose: 2 mg Cefadroxil (Duricef Cap*) 500 mg PO BID [facility] Last Admin: 12/23/17 09:04 Dose: 500 mg Heparin Sodium (Porcine) (Heparin Vial(*)) 5,000 units SUBCUT Q8HR [facility] Stop: 12/23/17 22:01 Last Admin: 12/23/17 06:08 Dose: 5,000 units Hydralazine HCl (Apresoline Tab*) 25 mg PO TID PRN PRN Reason: SBP > 160 mmHg Levothyroxine Sodium (Synthroid Tab*) 150 mcg PO DAILY [facility] Last Admin: 12/23/17 09:02 Dose: 150 mcg Potassium Chloride (Klor Con Er Tab*) 10 meq PO DAILY [facility] Last Admin: 12/23/17 09:03 Dose: 10 meq Objective Vital Signs: Temp Pulse Resp BP Pulse Ox 98.9 F 33 15 154/68 87 12/23/17 07:19 12/23/17 09:00 12/23/17 10:00 12/23/17 08:00 12/23/17 09:00 Oxygen Devices in Use Now: None Appearance: NAD, very pleasant Ears/Nose/Mouth/Throat: Clear Oropharnyx, Mucous Membranes Moist Neck: NL Appearance and Movements; NL JVP Respiratory: Symmetrical Chest Expansion and Respiratory Effort, Clear to Auscultation Cardiovascular: - - bradycardic and irregular, Abdominal: NL Sounds; No Tenderness; No Distention Extremities: No Edema, No Clubbing, Cyanosis Skin: No Rash or Ulcers Neurological: Alert and Oriented x 3 Laboratory Results: 12/23/17 05:00 INR (Anticoag Therapy) 0.92 (0.77-1.02) 12/23/17 05:00 Total Bilirubin 0.40 mg/dL (0.2-1.0) 12/22/17 11:45 AST 28 U/L (13-39) 12/22/17 11:45 ALT 21 U/L (7-52) 12/22/17 11:45 Alkaline Phosphatase 80 U/L (34-104) 12/22/17 11:45 CK-MB (CK-2) 9.9 ng/mL (0.6-6.3) H 12/22/17 11:45 B-Natriuretic Peptide 289 pg/mL (-100) H 12/22/17 11:45 Total Protein 7.0 g/dL (6.4-8.9) 12/22/17 11:45 Albumin 4.1 g/dL (3.2-5.2) 12/22/17 11:45 Globulin 2.9 g/dL (2-4) 12/22/17 11:45 Albumin/Globulin Ratio 1.4 (1-3) 12/22/17 11:45 TSH 0.80 mcIU/mL (0.34-5.60) 12/22/17 11:45 Diagnostic Imaging: DRE 08/06/2017: Normal LVEF, severe RA dilation, dilated LA mild-moderate valvular regurgitation, no echo evidence of endocarditis, moderate atherosclerotic plaque of aorta 06/2017: borderline aortic stenosis, severe LA dilation, moderate pHTN cxr 12/22/2017: no active disease EKG Data: EKG admission: RBBB, Atrial escape beats conducted with 1AVB followed by sinus beat 1AVB followed by sinus pause and escape beat likely from at or just below AV node, then likely 2 conducted atrial escape beats EKG 2: sinus bradycardia, 1AVB, RBBB Tele: Highest degree AV block seen is 2:1 (? type 1 vs. 2 second degree block), rate to 30 bpm at times when awake and conversing. 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 No syncope. - Last dose SQ heparin tonight (ordered) - NPO after midnight - Dual chamber permanent cardiac pacemaker planned for tomorrow - Would check with ID regarding any issues with this plan from an infection standpoint. Thank you for allowing me to participate in the cardiovascular care of this patient. Please do not hesitate to contact me with questions or concerns.
[2017-12-23] MEDS: hydrALAZINE TAB* 25 MG PO PRN (21:08)
[2017-12-24] MEDS: Cefadroxil CAP* 500 MG PO SCH ×2 (09:06→20:07)
[2017-12-24] MEDS: Bumetanide TAB* 2 MG PO SCH ×2 (09:06→20:07)
[2017-12-24] MEDS: Potassium Chlor TAB* 10 MEQ TAB.ER PO SCH (09:07)
[2017-12-24] MEDS: Levothyroxine TAB* 150 MCG TAB PO SCH (09:07)
[2017-12-24] MEDS: hydrALAZINE TAB* 25 MG PO PRN (09:12)
[2017-12-24 09:16] LABS: EGFR Non-African American 53.5 (>60)
--- NOTE | 2017-12-24 09:20 | ED ---
Liz Carrington Edward, scribed for Morales Trujillo MD on 12/22/17 at 1140 . Palpitations / Dysrhythmia - HPI Summary HPI Summary: 87 y/o male presents to the ED c/o dysrhythmia described as slow HR and SOB for around the past 10 days. Associated sx: mild dizziness. Symptoms not aggravated or alleviated by anything. Pt's baseline HR is usually at 55. Denies CP. Pt had a knee replacement in February 2017. Pt has staph in his knee is on abx and takes metropolol. - History of Current Complaint Chief Complaint: EDGeneral Hx Obtained From: Patient Onset/Duration: Lasting Days Timing: Constant Character: Slow Aggravating: Nothing Alleviating: Nothing Associated Signs & Symptoms: Dizzy, Shortness of Breath - Allergy/Home Medications Allergies/Adverse Reactions: Allergies Allergy/AdvReac Type Severity Reaction Status Date / Time No Known Allergies Allergy Verified 02/28/17 11:11 PMH/Surg Hx/FS Hx/Imm Hx Previously Healthy: No Endocrine/Hematology History: Reports: Hx Thyroid Disease Denies: Hx Diabetes Cardiovascular History: Denies: Hx Hypertension, Hx Pacemaker/ICD Respiratory History: Reports: Other Respiratory Problems/Disorders - PNEUMONIA Denies: Hx Asthma, Hx Chronic Obstructive Pulmonary Disease (COPD) GI History: Reports: Other GI Disorders - CONSTIPATION- CONTROLLED WITH METAMUCIL/ HEMORRHOIDS Denies: Hx Ulcer History: Denies: Hx Dialysis, Hx Renal Disease Musculoskeletal History: Reports: Hx Arthritis - RIGHT KNEE Sensory History: Reports: Hx Cataracts, Hx Contacts or Glasses - GLASSES Denies: Hx Hearing Aid Opthamlomology History: Reports: Hx Cataracts, Hx Contacts or Glasses - GLASSES Neurological History: Reports: Other Neuro Impairments/Disorders - GRAVES DISEASE Psychiatric History: Denies: Hx Panic Disorder - Cancer History Cancer Type, Location and Year: 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 appendectomy. left quad repair. lt ankle surgery. rt shoulder melanoma and lymph nodes removed Hx Anesthesia Reactions: No Infectious Disease History: Yes Infectious Disease History: Denies: Hx Clostridium Difficile, Hx Hepatitis, Hx Human Immunodeficiency Virus (HIV), Hx of Known/Suspected MRSA, Hx Shingles, Hx Tuberculosis, Hx Known/ Suspected VRE, Hx Known/Suspected VRSA, History Other Infectious Disease, Traveled Outside the [place] in Last 30 Days - Family History Known Family History: Positive: Cardiac Disease, Other - Cancer - Social History Alcohol Use: Occasionally Alcohol Amount: 3 PER DAY Substance Use Type: Reports: None Smoking Status (MU): Former Smoker Amount Used/How Often: PIPE X 60 YEARS Have You Smoked in the Last Year: No Review of Systems Constitutional: Negative Eyes: Negative ENT: Negative Positive: Other - dysrhythmia (slow HR) Positive: Shortness Of Breath Gastrointestinal: Negative Genitourinary: Negative Musculoskeletal: Negative Skin: Negative Neurological: Other - Dizziness Psychological: Normal All Other Systems Reviewed And Are Negative: Yes Physical Exam - Summary Physical Exam Summary: VITAL SIGNS: Reviewed. GENERAL: Patient is a well-developed and nourished male who is lying comfortable in the stretcher. Patient is not in any acute respiratory distress. HEAD AND FACE: No signs of trauma. No ecchymosis, hematomas or skull depressions. No sinus tenderness. EYES: PERRLA, EOMI x 2, No injected conjunctiva, no nystagmus. EARS: Hearing grossly intact. Ear canals and tympanic membranes are within normal limits. MOUTH: Oropharynx within normal limits. NECK: Supple, trachea is midline, no adenopathy, no JVD, no carotid bruit, no c- spine tenderness, neck with full ROM. CHEST: Symmetric, no tenderness at palpation LUNGS: Clear to auscultation bilaterally. No wheezing or crackles. CVS: Distant heart sounds with bradycardia at 38 BPM. S1 and S2 present, no murmurs or gallops appreciated. ABDOMEN: Soft, non-tender. No signs of distention. No rebound no guarding, and no masses palpated. Bowel sounds are normal. EXTREMITIES: FROM in all major joints, no edema, no cyanosis or clubbing. NEURO: Alert and oriented x 3. No acute neurological deficits. Speech is normal and follows commands. SKIN: Dry and warm Triage Information Reviewed: Yes Vital Signs On Initial Exam: Initial Vitals Temp Pulse Resp BP Pulse Ox 97.4 F 36 17 148/58 99 12/22/17 11:25 12/22/17 11:25 12/22/17 11:25 12/22/17 11:25 12/22/17 11:25 Vital Signs Reviewed: Yes Diagnostics - Vital Signs Vital Signs Temp Pulse Resp BP Pulse Ox 12/22/17 11:25 97.4 F 36 17 148/58 99 - Laboratory Lab Results: Lab Results 12/22/17 12/22/17 12/22/17 Range/Units 11:45 11:45 11:45 WBC 5.2 (3.5-10.8) 10^3/ul RBC 3.80 L (4.0-5.4) 10^6/ul Hgb 12.9 L (14.0-18.0) g/dl Hct 38 L (42-52) % MCV 101 H (80-94) fL MCH 34 H (27-31) pg MCHC 34 (31-36) g/dl RDW 14 (10.5-15) % Plt Count 189 (150-450) 10^3/ul MPV 8 (7.4-10.4) um3 Neut % (Auto) 69.6 (38-83) % Lymph % (Auto) 15.3 L (25-47) % [place] % (Auto) 11.5 H (1-9) % Eos % (Auto) 2.8 (0-6) % Baso % (Auto) 0.8 (0-2) % Absolute Neuts (auto) 3.6 (1.5-7.7) 10^3/ul Absolute Lymphs (auto) 0.8 L (1.0-4.8) 10^3/ul Absolute Monos (auto) 0.6 (0-0.8) 10^3/ul Absolute Eos (auto) 0.1 (0-0.6) 10^3/ul Absolute Basos (auto) 0 (0-0.2) 10^3/ul Absolute Nucleated RBC 0 10^3/ul Nucleated RBC % 0.2 Sodium 138 (133-145) mmol/L Potassium 3.4 L (3.5-5.0) mmol/L Chloride 97 L (101-111) mmol/L Carbon Dioxide 32 (22-32) mmol/L Anion Gap 9 (2-11) mmol/L BUN 43 H (6-24) mg/dL Creatinine 1.62 H (0.67-1.17) mg/dL Est GFR ( Amer) 52.0 (>60) Est GFR (Non-Af Amer) 40.4 (>60) BUN/Creatinine Ratio 26.5 H (8-20) Glucose 95 (70-100) mg/dL Lactic Acid (0.5-2.0) mmol/L Calcium 9.3 (8.6-10.3) mg/dL Magnesium 2.2 (1.9-2.7) mg/dL Total Bilirubin 0.40 (0.2-1.0) mg/dL AST 28 (13-39) U/L ALT 21 (7-52) U/L Alkaline Phosphatase 80 (34-104) U/L Total Creatine Kinase 195 (10-223) U/L CK-MB (CK-2) 9.9 H (0.6-6.3) ng/mL Troponin I 0.03 (<0.04) ng/mL B-Natriuretic Peptide 289 H ( - 100) pg/mL Total Protein 7.0 (6.4-8.9) g/dL Albumin 4.1 (3.2-5.2) g/dL Globulin 2.9 (2-4) g/dL Albumin/Globulin Ratio 1.4 (1-3) TSH 0.80 (0.34-5.60) mcIU/mL Thyroxine (T4) 9.29 (6.09-12.23) mcg/mL 12/22/17 Range/Units 11:45 WBC (3.5-10.8) 10^3/ul RBC (4.0-5.4) 10^6/ul Hgb (14.0-18.0) g/dl Hct (42-52) % MCV (80-94) fL MCH (27-31) pg MCHC (31-36) g/dl RDW (10.5-15) % Plt Count (150-450) 10^3/ul MPV (7.4-10.4) um3 Neut % (Auto) (38-83) % Lymph % (Auto) (25-47) % [place] % (Auto) (1-9) % Eos % (Auto) (0-6) % Baso % (Auto) (0-2) % Absolute Neuts (auto) (1.5-7.7) 10^3/ul Absolute Lymphs (auto) (1.0-4.8) 10^3/ul Absolute Monos (auto) (0-0.8) 10^3/ul Absolute Eos (auto) (0-0.6) 10^3/ul Absolute Basos (auto) (0-0.2) 10^3/ul Absolute Nucleated RBC 10^3/ul Nucleated RBC % Sodium (133-145) mmol/L Potassium (3.5-5.0) mmol/L Chloride (101-111) mmol/L Carbon Dioxide (22-32) mmol/L Anion Gap (2-11) mmol/L BUN (6-24) mg/dL Creatinine (0.67-1.17) mg/dL Est GFR ( Amer) (>60) Est GFR (Non-Af Amer) (>60) BUN/Creatinine Ratio (8-20) Glucose (70-100) mg/dL Lactic Acid 1.6 (0.5-2.0) mmol/L Calcium (8.6-10.3) mg/dL Magnesium (1.9-2.7) mg/dL Total Bilirubin (0.2-1.0) mg/dL AST (13-39) U/L ALT (7-52) U/L Alkaline Phosphatase (34-104) U/L Total Creatine Kinase (10-223) U/L CK-MB (CK-2) (0.6-6.3) ng/mL Troponin I (<0.04) ng/mL B-Natriuretic Peptide ( - 100) pg/mL Total Protein (6.4-8.9) g/dL Albumin (3.2-5.2) g/dL Globulin (2-4) g/dL Albumin/Globulin Ratio (1-3) TSH (0.34-5.60) mcIU/mL Thyroxine (T4) (6.09-12.23) mcg/mL Result Diagrams: 12/22/17 11:45 12/24/17 05:40 Lab Statement: Any lab studies that have been ordered have been reviewed, and results considered in the medical decision making process. - Radiology CXR Xray Interpretation: No Acute Changes - CARDIOMEGALY. HYPERINFLATION. NO ACTIVE CARDIOPULMONARY DISEASE. Radiology Interpretation Completed By: Radiologist - ED PHYSICIAN REVIEWS AND AGREES - EKG 1 EKG Interpretation: Afib 39 bpm. Similar to 03/23/17 except for bradycardia. Course/Dx - Course Assessment/Plan: 87 y/o male presents to the ED c/o dysrhythmia described as slow HR and SOB for around the past 10 days. Associated sx: mild dizziness. Symptoms not aggravated or alleviated by anything. Pt's baseline HR is usually at 55. Denies CP. Pt had a knee replacement in February 2017. Pt has staph in his knee is on abx and takes metropolol. CXR SHOWS CARDIOMEGALY. HYPERINFLATION. NO ACTIVE CARDIOPULMONARY DISEASE. EKG - Afib 39 bpm. Similar to 03/23/17 except for bradycardia. Test results are without significant abnormalities except slight anemia, potassium 3.4 for which the pt was given pot chloride. [id number], UA () UTI. In the ED course the pts HR dropped to 29, and the pt became symptomatic. Therefore the pt was placed in an external pacemaker, however we did not use it since the pt improved. I discussed with Chante Carson, working with Dr. Sparks who accepted the pt for symptomatic bradycardia. The pt is hemodynamically stable, A&Ox3. - Diagnoses Differential Diagnosis/HQI/PQRI: Positive: Cardiomyopathy, Hypoxia, Medication Induced Provider Diagnoses: Symptomatic bradycardia - Critical Care Time Critical Care Time: 30-74 min Discharge - Discharge Plan Condition: Stable Disposition: ADMITTED TO [facility] The documentation as recorded by the Liz almanza Edward accurately reflects the service I personally performed and the decisions made by me, Morales Trujillo MD.
[2017-12-24] MEDS ORDERED: ceFAZolin 2 GM PREMIX (*) 2 GM/50 ML BAG IVPB ONE (09:21)
[2017-12-24] MEDS ORDERED: ceFAZolin 1 GM VIAL(*) 1 GM in NS 0.9% 50 ML* 50 ML IVPB ONE (09:21)
[2017-12-24] MEDS ORDERED: Diazepam TAB(*) 5 MG PO ONE (09:21)
[2017-12-24] MEDS ORDERED: ceFAZolin VIAL 1 GM in NS *SYRINGE * * 10 ML ONE (10:00)
[2017-12-24] MEDS ORDERED: Diazepam TAB(*) 5 MG ONE (10:12)
--- NOTE | 2017-12-24 10:12 | PN ---
Subjective Date of Service: 12/24/17 Interval History: Mostly 1st degree overnight with improved rates to mostly 50s, BP preserved/ elevated and got hydralazine po prn. Planned PPM today. No other complaints except hungry with npo order. Objective Active Medications: Atropine Sulfate (Atropine Syringe*) 0.5 mg IV Q3M PRN PRN Reason: BRADYCARDIA Bumetanide (Bumex Tab*) 2 mg PO BID [facility] Last Admin: 12/24/17 09:06 Dose: 2 mg Cefadroxil (Duricef Cap*) 500 mg PO BID [facility] Last Admin: 12/24/17 09:06 Dose: 500 mg Hydralazine HCl (Apresoline Tab*) 25 mg PO TID PRN PRN Reason: SBP > 160 mmHg Last Admin: 12/24/17 09:12 Dose: 25 mg Sodium Chloride (Ns 0.9% 1000 Ml*) 1,000 mls @ 75 mls/hr IV PER RATE [facility] Levothyroxine Sodium (Synthroid Tab*) 150 mcg PO DAILY [facility] Last Admin: 12/24/17 09:07 Dose: 150 mcg Potassium Chloride (Klor Con Er Tab*) 10 meq PO DAILY [facility] Last Admin: 12/24/17 09:07 Dose: 10 meq Vital Signs - 8 hr 12/24/17 12/24/17 12/24/17 03:00 03:01 04:00 Temperature 98.3 F Pulse Rate 53 53 72 Respiratory 16 12 18 Rate Blood Pressure 135/51 (mmHg) O2 Sat by Pulse 99 100 97 Oximetry 12/24/17 12/24/17 12/24/17 04:01 05:00 05:01 Temperature Pulse Rate 58 41 47 Respiratory 13 13 17 Rate Blood Pressure 172/71 121/55 (mmHg) O2 Sat by Pulse 98 94 93 Oximetry 12/24/17 12/24/17 12/24/17 06:00 07:00 07:01 Temperature Pulse Rate 49 45 55 Respiratory 15 18 18 Rate Blood Pressure 153/64 167/69 (mmHg) O2 Sat by Pulse 98 93 96 Oximetry 12/24/17 12/24/17 12/24/17 07:36 08:00 08:01 Temperature 98.0 F Pulse Rate 51 53 Respiratory 11 16 Rate Blood Pressure 167/68 (mmHg) O2 Sat by Pulse 98 96 Oximetry 12/24/17 12/24/17 12/24/17 09:00 09:01 09:14 Temperature Pulse Rate 68 61 56 Respiratory 14 18 26 Rate Blood Pressure 177/84 182/84 (mmHg) O2 Sat by Pulse 97 98 97 Oximetry 12/24/17 12/24/17 10:00 10:01 Temperature Pulse Rate 59 55 Respiratory 18 14 Rate Blood Pressure 149/65 (mmHg) O2 Sat by Pulse 95 94 Oximetry Oxygen Devices in Use Now: Nasal Cannula Appearance: NAD Eyes: No Scleral Icterus, PERRLA Ears/Nose/Mouth/Throat: NL Teeth, Lips, Gums, Mucous Membranes Moist Neck: NL Appearance and Movements; NL JVP, Trachea Midline Respiratory: Symmetrical Chest Expansion and Respiratory Effort, Clear to Auscultation Cardiovascular: - - bradycardic. no m/r/g Extremities: No Edema Skin: No Rash or Ulcers, No Nodules or Sclerosis Neurological: Alert and Oriented x 3, NL Muscle Strength and Tone Result Diagrams: 12/22/17 11:45 12/24/17 05:40 Additional Lab and Data: Laboratory Results - last 24 hr 12/24/17 05:40 Sodium 134 Chloride 100 L Carbon Dioxide 28 BUN 38 H Creatinine 1.27 H Est GFR ( Amer) 68.8 Est GFR (Non-Af Amer) 53.5 BUN/Creatinine Ratio 29.9 H Glucose 91 Calcium 8.8 Magnesium 2.1 Microbiology and Other Data: Microbiology 12/22/17 15:50 Nasal Nasal Screen MRSA (PCR)([facility]) - Final Mrsa Negative Assess/Plan/Problems-Billing Assessment: 87 yo male PMH diastolic CHF, RBBB, HTN, right knee hardware complicated by MSSA infection on chronic cefadroxil, daily EtOH presenting with symptomatic bradycardia 30s with e/o up to 2 degree heart block (2:1) with SA and AV node dysfunction, pauses up to 4 sec. Scheduled PPM 12/24. 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 appreciate cardiology recs holding home metoprolol 12.5mg BID external pacer pads in place prn atropine 0.6mg q5min npo midnight. planned PPM with Dr. Saleem today 12/24 alternates with 1st degree, HR trend improvement talked to Dr. 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 Continue cefadroxil. (2) Bradycardia Current Visit: No Status: Acute Code(s): R00.1 - BRADYCARDIA, UNSPECIFIED SNOMED Code(s): 08248169 Comment: plan per above(2nd degree heart block). PPM planned. (3) Hypertension Current Visit: No Status: Chronic Code(s): I10 - ESSENTIAL (PRIMARY) HYPERTENSION SNOMED Code(s): 52781756 Comment: hydralazine prn. SBP up to 180s overnight. holding home BB given 2nd degree heart block and symptomatic bradycardia. (4) Hypothyroidism Current Visit: No Status: Chronic Code(s): E03.9 - HYPOTHYROIDISM, UNSPECIFIED SNOMED Code(s): 08767068 Comment: Continue levothyroxine 150mcg daily. TSH and Total T3 wnl. (5) Daily consumption of alcohol Current Visit: Yes Status: Acute Code(s): QCD4343 - SNOMED Code(s): 896177299 Comment: nightly beer from dietary. Status and Disposition: medicine inpatient. in ICU with external pacer pads until PPM. Likely home 12/25 (Elsy) Attending: Eduar Sparks
[2017-12-24] MEDS ORDERED: Midazolam* 1 MG/ML 10 ML VIAL (10 MG) ONE (10:50)
[2017-12-24] MEDS ORDERED: Lidocaine 1% INJ* 10 MG/ML 30 ML SDV ONE (10:51)
[2017-12-24] MEDS ORDERED: fentaNYL* 50 MCG/ML 2 ML VIAL (100 MCG VIAL) ONE (10:51)
[2017-12-24] MEDS ORDERED: oxyCODONE/Acetamin 5/325 MG* TAB PO PRN (12:16)
[2017-12-24] MEDS ORDERED: Acetaminophen TAB* 325 MG PO PRN (12:16)
--- NOTE | 2017-12-24 13:35 | RAD ---
INDICATION: Device implant COMPARISON: December 22, 2017 TECHNIQUE: An AP portable view obtained at 1315 hours is submitted. FINDINGS: Bones/Soft Tissues: There are no acute bony findings. There is osteopenia with mild dextroscoliosis of the thoracic spine There is recent left-sided cardiac pacemaker placement Cardiomediastinal: The cardiac silhouette is at the upper limits of normal in size. The pulmonary vascularity is normal Lungs: There are no infiltrates. Pleura: There are no pleural effusions. Other: None IMPRESSION: NO ACTIVE DISEASE. INTERVAL LEFT-SIDED CARDIAC PACEMAKER PLACEMENT
[2017-12-24] MEDS: NS 0.9% 1000 ML* 1,000 ML IV SCH ×2 (14:27→18:27)
[2017-12-25] MEDS: hydrALAZINE TAB* 25 MG PO PRN (00:19)
[2017-12-25 06:49] LABS: EGFR Non-African American 52.6 (>60)
[2017-12-25 08:11] VITALS: BP 159/67
[2017-12-25] MEDS: Levothyroxine TAB* 150 MCG TAB PO SCH (08:19)
[2017-12-25] MEDS: Potassium Chlor TAB* 10 MEQ TAB.ER PO SCH (08:19)
[2017-12-25] MEDS: Bumetanide TAB* 2 MG PO SCH (08:19)
[2017-12-25] MEDS: Cefadroxil CAP* 500 MG PO SCH (08:19)
[2017-12-25] MEDS: NS 0.9% 1000 ML* 1,000 ML IV SCH (08:20)
[2017-12-25] MEDS ORDERED: Magnesium Sulfate 1 GM IV* 1 GM/100 ML BAG IV ONE (08:20)
--- NOTE | 2017-12-25 09:02 | OP ---
CC: Dr. Rodrigues; Dr. Farias OPERATIVE REPORT: DATE OF OPERATION: 12/24/17 DATE OF : [birth year] SURGEON: Harpal allan MD ANESTHESIA: Local anesthesia with conscious sedation. PRE-OP DIAGNOSES: Sick sinus syndrome, bradycardia. POST-OP DIAGNOSES: Sick sinus syndrome, bradycardia. OPERATIVE PROCEDURE: Dual-chamber pacemaker implantation. ESTIMATED BLOOD LOSS: Nil. COMPLICATIONS: None. INDICATIONS: The patient is an 87-year-old gentleman with a history of diastolic dysfunction, histor y of aortic regurgitation and history of bradycardia. The patient was admitted to the hospital with lightheadedness and was found to have significant bradycardia. Permanent pacemaker was recommended. DESCRIPTION OF PROCEDURE: The patient was brought to the procedure room in a fasting state. Informe d consent had been obtained prior to the procedure. All labs had been reviewed. The patient was wesley deepak supine on the procedure table. His left deltopectoral area was cleaned and draped in the usual f ashion. 1% lidocaine was used for local anesthesia. The axillary vein was entered via a modified Se ldinger technique and a second guidewire was placed in the same technique. A 4 cm incision was made in the pectoral area, blunt dissection was carried down to the pectoral fascia. A small pocket was f ashioned for the pacemaker. Over the first guidewire, a 7-Burkinan sheath introducer was placed throug h which a right ventricular lead was advanced to the RV apex. The right ventricular lead is a Medtro kimberley model 5076, serial number [id number]. It had an R-wave sensitivity of 5, impedance 494 ohms, thr eshold 0.5 volts at 0.4 milliseconds. The ventricular lead was then sutured to the pectoral fascia u sing 0 silk. Over the second guidewire, a 7-Burkinan sheath introducer was placed through which a righ t atrial lead was advanced to the high right atrium. The atrial lead was a Medtronic model 5076 seri al number [id number]. It had P-wave sensitivity of 1.3, impedance 475 ohms, threshold 1 volt at 0.4 milliseconds. The atrial lead was then sutured to the pectoral fascia using 0 silk. The pocket was flushed with antibiotic-infused normal saline. A generator was attached to the atrial and ventricula r leads. The generator is a Medtronic model A2DR01 serial number [id number]. The device was placed into the pocket. The surgical incision was closed in 3 layers. The patient was returned to the [facility] area in stable condition. [id number]/[facility] #: [id number]
--- NOTE | 2017-12-25 09:44 | RAD ---
Indication: Pacemaker placement. 2 views the chest including dual energy PA views demonstrates pacemaker leads in place. Hyperinflated lung amin are noted. No alveolar consolidation is noted. IMPRESSION: Hyperinflated lung amin are noted. Pacemaker leads are in place. No pneumothorax is noted.
--- NOTE | 2017-12-25 12:14 | DS ---
DATE OF ADMISSION: 12/22/2017. DATE OF DISCHARGE: 12/25/2017. ADMITTING AND ATTENDING PHYSICIAN: Eduar Sparks MD. PRIMARY CARE PHYSICIAN: Danny Rodrigues MD. PRIMARY SUPERVISOR LAUNDRY: Harpal Saleem MD. CHIEF COMPLAINT: Shortness of breath, low heart rates on home monitoring equipment, dizziness. 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 HISTORY OF PRESENT ILLNESS AND HOSPITAL COURSE: Mr. 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 He had tried stopping his Metoprolol 12.5 mg daily with no change in the bradycardia and only an increase in his blood pressure from the 140s to 180s. Upon presentation to the ED, he was found to be have right bundle branch block with sinus pauses with escape beats at or just below the AV node. HRs mostly in the mid 30s with preserved blood pressures. On Telemetry, he had pauses up to mid 3 seconds and evidence of second degree 2:1 heart block ( unable to determine type 1 vs type 2). He was transferred to the ICU with pacer pads in place and standby Atropine. He was evaluated by Dr. Raj Blanchard of Cardiology who consulted with his primary outpatient aluminum fabrication supervisor, Dr. Saleem , and plan was made to have pacemaker placed on 12/24/2017. This was done without complication. He was continued on his Cefadroxil for his chronic MSSA hardware infection which did not show any signs of current inflammation and Dr. Farias was appraised of the situation and had no objection to permanent pacemaker lead placement. Post pacemaker placement, he was evaluated by Dr. Saleem. Pacer seemed to be working properly. He is being discharged on his home Cefadroxil and suggested follow-up with Dr. Rodrigues within five days of discharge. 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 DISCHARGE MEDICATIONS: 1. Bumex 2 mg p.o. daily. 2. Cefadroxil 500 mg p.o. b.i.d. 3. Synthroid 150 mcg p.o. daily. 4. Potassium Chloride 10 mEq p.o. daily. 5. Metoprolol 12.5 mg p.o. b.i.d. DISCHARGE DIET: Heart healthy. The patient is a daily drinker of one beer, some wine and eliud each night of note. ACTIVITY RESTRICTIONS: He should not lift his arm on the left above his head for lift more than five pounds for one month. He should not reach behind his back. He should not do large movements or reaching, such as gardening, golfing , swimming, or bowling for one month. Avoid contact sports or activities that could cause chest trauma such as heavy lifting or running. He can resume driving after seven days after pacemaker insertion. He should wear an arm/ shoulder immobilizer on the effected side for three to four weeks. He should keep the wound clean and dry. He can use soap and water after 48 hours, letting water run over the site, but do not scrub. He should avoid tub baths and swimming for ten days. He should avoid tight clothing over the pacemaker that could cause irritation to the incision site. Seek medical attention if he is running a fever and noticed swelling, bleeding, redness, or drainage around the insertion site. FOLLOW-UP: Please follow-up with Dr. Rodrigues within five days of discharge. He should also call the office of Dr. Saleem to see if he needs a follow-up within four weeks. [id number]/[facility] #: [id number] [facility]
== END 2017-12-25 11:37 | disposition home or self-care (01) | DRG 243 ==
LOC: ED 11:23 → ICU 14:06 → MEDTELE 12-24 18:19
PROVIDERS: ADMIT Internal Medicine; ATTEND Internal Medicine
PROC: 02H63JZ Insertion of Pacemaker Lead into Right Atrium, Percutaneous Approach (ICD-10-PCS; 2017-12-24)
PROC: 02HK3JZ Insertion of Pacemaker Lead into Right Ventricle, Percutaneous Approach (ICD-10-PCS; 2017-12-24)
PROC: 0JH606Z Insertion of Pacemaker, Dual Chamber into Chest Subcutaneous Tissue and Fascia, Open Approach (ICD-10-PCS; principal; 2017-12-24 09:30)
DX: I44.1 Atrioventricular block, second degree (principal); T84.53XA Infection and inflammatory reaction due to internal right knee prosthesis, initial encounter; I27.20 Pulmonary hypertension, unspecified; I50.32 Chronic diastolic (congestive) heart failure; I11.0 Hypertensive heart disease with heart failure; I08.2 Rheumatic disorders of both aortic and tricuspid valves; E03.9 Hypothyroidism, unspecified; I48.0 Paroxysmal atrial fibrillation; I49.5 Sick sinus syndrome; I70.0 Atherosclerosis of aorta; H26.9 Unspecified cataract; Y79.2 Prosthetic and other implants, materials and accessory orthopedic devices associated with adverse incidents; I45.2 Bifascicular block; Z85.820 Personal history of malignant melanoma of skin; Z82.49 Family history of ischemic heart disease and other diseases of the circulatory system; Z87.891 Personal history of nicotine dependence; Z72.89 Other problems related to lifestyle; Y92.009 Unspecified place in unspecified non-institutional (private) residence as the place of occurrence of the external cause
CPT/HCPCS: 33208; 36415; 71045; 71046; 80048; 80053; 81003; 82550; 82553; 82607; 82746; 83605; 83735; 83880; 84436; 84443; 84484; 85025; 85610; 87641; 93005; 99156; 99157; A9270-GY; C1785; C1898; J0461; J0690; J1644; J2250; J3010; J3475

== ENCOUNTER → 2019-08-27 06:59 | Day surgery (SDC) | payer MEDICARE, OTHER ==
[~2019-08-27 06:59] MED LIST changes: +Buffered Lidocaine 1% SYRIN* 1 ML/SYRINGE INTRADERM ONE; -Buffered Lidocaine 1% SYRIN* 3 ML/SYR SYRINGE INTRADERM ONE; +Bupivacaine 0.25% SDV PF* 10 ML VIAL INJ ONE; -Dexamethasone IV* 4 MG/ML 1 ML (4 MG) IV SLOW PU ONE; -Famotidine IV* 10 MG/ML 2 ML (20 mg) IV ONE; +Lactated Ringers 1000 ML Bag* 1,000 ML IV SCH; +ceFAZolin 2 GM in NS PREMIX(*) 2 GM/100 ML BAG IVPB ONE
[2019-08-27 10:01] VITALS: BP 144/84
--- NOTE | 2019-08-28 01:31 | OP ---
DATE OF OPERATION: 08/27/19 - [facility] DATE OF : [birth year] SURGEON: Dr. Octavio Gonzalez. PIPE SMOKER MACHINE OPERATOR: SANTOS Eduardo. A physician dental ceramist assistant was required for the length of procedure for assistance with the patient positioning, retraction, and closure. ANESTHESIOLOGIST: Dr. Darian Yin. ANESTHESIA: General sedation, local anesthesia with a 1:1 ratio of lidocaine 1 % without epinephrine and Marcaine 0.25% with epinephrine, 15 cc. PRE-OP DIAGNOSIS: Right carpal tunnel syndrome. POST-OP DIAGNOSIS: Right carpal tunnel syndrome. OPERATIVE PROCEDURE: Right open carpal tunnel release. ANTIBIOTICS: Ancef 2 g IV. IV FLUIDS: See anesthesia note. [id number] TIME: 14 minutes. TOURNIQUET TIME: 17 minutes at 250 mmHg, right upper arm. SPECIMEN: None. IMPLANTS: None. ESTIMATED BLOOD LOSS: Minimal. COMPLICATIONS: None. INDICATIONS FOR PROCEDURE: The patient is an 88-year-old man with a history and physical exam consistent with carpal tunnel syndrome. We opted not to go through with electrodiagnostic studies and proceed forward with surgery. Discussed risks and potential complications of surgery. DESCRIPTION OF PROCEDURE: In preoperative holding, the patient signed a written consent. The operative extremity was marked in preoperative holding. The patient was taken back to the operating room and kept on a stretcher. General sedation. Hand table applied. Mini time-out performed. Local anesthesia consisting of 10 cc of local were applied into the distal forearm and wrist. Tourniquet applied. Right upper extremity was prepped and draped. Esmarch applied. Tourniquet elevated after the formal time-out had been performed. I made a standard skin incision for an open carpal tunnel release. Dissected down to the longitudinal fascia. Released longitudinal fascia and had excellent view of transverse carpal ligaments along its length. The patient has had some discomfort about the wrist, so I applied some additional local anesthesia, 5 cc into the wound itself and the subcutaneous tissue surrounding it. I released the transverse carpal ligament with knife and scissors. It retracted nicely. I clearly retracted it along its entire length from proximal to distal, starting distal and then moving proximal. Irrigation. Closure of the skin with horizontal mattress and simple stitches using nylon 4-0 suture. Xeroform, 4x4s, bulky sterile Webril and Coban. The patient was awakened and brought to the PACU. DISPOSITION: Wound care instructions provided. Tramadol as needed for pain control. The patient will follow up in 10 to 14 days postoperative in clinic with me. [id number]/[facility] #: [id number] [facility]
== END | disposition home or self-care (01) ==
LOC: OR 06:59
PROVIDERS: ATTEND Orthopaedic Surgery
DX: G56.01 Carpal tunnel syndrome, right upper limb (principal); Z87.891 Personal history of nicotine dependence; M19.90 Unspecified osteoarthritis, unspecified site; Z85.820 Personal history of malignant melanoma of skin; E05.00 Thyrotoxicosis with diffuse goiter without thyrotoxic crisis or storm; I45.10 Unspecified right bundle-branch block
CPT/HCPCS: J0690; J3490